=== PATIENT | female | born 1975 | race Caucasian/White ===

== ENCOUNTER 2022-06-20 11:05 | Day surgery (SDC) | payer MEDICARE, OTHER ==
[2022-06-18 14:34] VITALS: BMI 38.2
--- NOTE | 2022-06-19 13:47 | P.HPIHPCON ---
History of Present Illness H&P Date: 06/19/22 Chief Complaint: Left ureteral stone This is a 47-year-old female, with history of a 1 cm left-sided ureteral stone, status post stent insertion for septic stone. Discussed with her the option of definitive stone management. Discussed with her the option of a left-sided ur eteroscopy with holmium laser. Discussed with her the risk which includes but not limited to bleeding, infection, injury to the ureter. Discussed also with her risk from anesthesia. She understood all the risk and agreed to proceed left-sided ureteroscopy, holmium laser lithotripsy, stone basketing and stent removal Consent for Procedure: I have explained the operation/procedure to the patient, including the risks, benefits, side effects, alternative therapies (including not receiving the proposed treatment or service), the likelihood of the patient achieving his/her goals, and potential recuperation problems for the procedure/sedation/analgesia, as well as any blood products, if indicated. I also explained to the patient the risks, benefits and side effects of the alternatives, as well as the risks related to not receiving the proposed procedure, care, treatment, or services. Past Medical History Past Medical History: Atrial Fibrillation, Diabetes Mellitus, GERD/Reflux, Seizure Disorder Additional Past Medical History / Comment(s): admitted to [facility] May 2022 for sepsis/uti,acute renal failure. 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 uses a beata lift,goff catheter,colostomy,chronic inflammatory demyelinating polyneuritis,anemia,date of last seizure unk History of Any Multi-Drug Resistant Organisms: None Reported Past Surgical History: Cholecystectomy Additional Past Surgical History / Comment(s): colostomy,liver surgery Past Anesthesia/Blood Transfusion Reactions: No Reported Reaction Smoking Status: Unknown if ever smoked - Past Family History Father History Unknown: Yes Medications and Allergies Home Medications Medication Instructions Recorded Confirmed Type Acetaminophen Tab [Tylenol] 650 mg PO Q6H PRN 06/18/22 06/18/22 History Apixaban [Eliquis] 5 mg PO BID 06/18/22 06/18/22 History Baclofen 5 mg PO BID 06/18/22 06/18/22 History Cholecalciferol [Vitamin D3 (25 50 mcg PO DAILY 06/18/22 06/18/22 History Mcg = 1000 Iu)] DULoxetine HCL 20 mg PO QAM 06/18/22 06/18/22 History Flecainide Acetate 50 mg PO BID 06/18/22 06/18/22 History Gabapentin [Neurontin] 300 mg PO BID 06/18/22 06/18/22 History HYDROcodone/APAP 5-325MG [Isleta 1 tab PO Q6HR PRN 06/18/22 06/18/22 History 5-325] INSULIN LISPRO (HumaLOG) [humaLOG] 0 units SQ TID-W/MEALS PRN 06/18/22 06/18/22 History Insulin Glargine,Hum.rec.anlog 12 units SQ HS 06/18/22 06/18/22 History [Lantus Solostar Pen] Insulin Glargine,Hum.rec.anlog 15 units SQ DAILY 06/18/22 06/18/22 History [Lantus Solostar Pen] Mag Hydrox/Al Hydrox/Simeth 30 ml PO Q6H PRN 06/18/22 06/18/22 History [Maalox] Melatonin [Melatonin ER] 10 mg PO HS 06/18/22 06/18/22 History Metoprolol Succinate (ER) [Toprol 25 mg PO QAM 06/18/22 06/18/22 History Xl] Miconazole Nitrate [Monistat 3 200 mg VAGINAL HS 06/18/22 06/18/22 History Vaginal] Midodrine HCl [ProAmatine] 10 mg PO TID 06/18/22 06/18/22 History Multivitamins, Thera [Multivitamin 1 tab PO DAILY 06/18/22 06/18/22 History (formulary)] Oxybutynin Chloride [Oxybutynin 15 mg PO DAILY 06/18/22 06/18/22 History Chloride ER] Primidone [Mysoline] 50 mg PO HS 06/18/22 06/18/22 History Z Guard Topical 1 applicate TOPICAL BID 06/18/22 06/18/22 History levETIRAcetam [Keppra] 750 mg PO Q12HR 06/18/22 06/18/22 History Allergies Allergy/AdvReac Type Severity Reaction Status Date / Time shellfish derived [Shellfish] Allergy Unknown Verified 06/18/22 13:22 Surgical - Exam - General no distress, no pain - Eyes normal ocular movement - Respiratory normal expansion, normal respiratory effort Assessment and Plan Assessment: OR for left-sided ureteroscopy, holmium laser lithotripsy, stone basketing and stent removal
[~2022-06-20 11:05] MED LIST: DEXAMETHASONE SOD PHOSPHATE 4 MG/ML 1 ML VIAL IV ONE; GENTAMICIN 120 MG in SODIUM CHLORIDE 0.9% 100 ML IVPB PRN; HYDROmorphone 0.5 MG/0.5 ML SYRINGE IVP PRN; LACTATED RINGERS 1,000 ML IV SCH; MIDAZOLAM 2 MG/2 ML VIAL IV PRN; ONDANSETRON 4 MG/2 ML VIAL IVP ONE; SCOPOLAMINE 1 MG/72 HR PATCH TRANSDERM ONE; ceFAZolin 3 GM in SODIUM CHLORIDE 0.9% 100 ML IVPB PRN
[2022-06-20 12:20] LABS: Glucose,Whole Blood 117 mg/dL (70-110)
--- NOTE | 2022-06-20 13:17 | XR ---
KUB HISTORY: Left renal stone Frontal KUB and 2 images Double-J ureteral stent is present on the left. There is an ostomy in the left lower quadrant. Surgic al clips are present in the right upper quadrant. Probable vascular calcifications are present within the pelvis. Some retained fecal debris is present within the colon. Bone mineralization is slightly reduced. Degenerative disc changes are present visualized spine. Question a crescentic calcification at the level of the lower pole the left kidney, overlying bowel gas obscures detail. Question postop changes in the left upper quadrant. Patient is rotated. IMPRESSION: Postprocedural changes, possible nephrolithiasis.
[2022-06-20] MEDS ORDERED: MIDAZOLAM 2 MG/2 ML VIAL ONE (13:49)
[2022-06-20] MEDS ORDERED: PROPOFOL 10 MG/ML 20 ML VIAL IV ONE (13:49)
[2022-06-20] MEDS ORDERED: fentaNYL (PF) 50 MCG/ML 2 ML AMP ONE (13:49)
[2022-06-20] MEDS ORDERED: ePHEDrine 50 MG/ML 1 ML VIAL ONE (13:49)
[2022-06-20] MEDS ORDERED: GLYCOPYRROLATE 0.2 MG/ML 2 ML VIAL ONE (13:49)
[2022-06-20 14:57] VITALS: TEMP 97
--- NOTE | 2022-06-20 15:02 | FL ---
Intraoperative/procedural fluoroscopic services were provided. Total fluoroscopy time is 3.8 seconds with a total of 1 submitted images to PACS. Please see the operative/procedural note for further deta ils.
--- NOTE | 2022-06-20 15:07 | P.OP ---
Date of Procedure: 06/20/22 Preoperative Diagnosis: Left ureteral stone Postoperative Diagnosis: Same Procedure(s) Performed: Cystoscopy left ureteroscopy, and stent removal Implants: None Anesthesia: EFRAINA Surgeon: Michael Dickens Estimated Blood Loss (ml): 5 Pathology: none sent Condition: stable Disposition: PACU Indications for Procedure: This is a 47-year-old female, with history of a 1 cm left-sided ureteral stone, status post stent insertion for septic stone. Discussed with her the option of definitive stone management. Discussed with her the option of a left-sided ureteroscopy with holmium laser. Discussed with her the risk which includes but not limited to bleeding, infection, injury to the ureter. Discussed also with her risk from anesthesia. She understood all the risk and agreed to proceed left-sided ureteroscopy, holmium laser lithotripsy, stone basketing and stent removal Operative Findings: No stone was identified, the ureter and the collecting system was dilated, there was debris within the collecting system Description of Procedure: Patient brought to the operating room, general anesthesia was induced. She was prepped and draped in sterile fashion and placed in dorsal lithotomy position. Cystoscopy fitted with a 21-Mongolian sheath was inserted per urethra, cystoscopy was performed which showed no abnormality within the bladder, of note the urethra was patulous. Attention was then carried to the ureteral stent which was grasped and removed to the meatus. Next a sensor wire was advanced through the stent and the stent was removed with the wire in place. Next a semirigid ureteroscope was inserted through the urethra and advanced up the left ureteral orifice, of note the ureter was significantly dilated, and I was able to advance the scope all the way to the proximal ureter which showed no evidence of stone, pullback ureteroscopy was performed showed no injury to the ureter, or evidence of any stones. Next under fluoroscopy 1214 Mongolian access sheath was passed over the wire, access sheath passed with ease given the significantly dilated ureter. Next a flexible ureteroscope was inserted through the access sheath, renoscopy was performed showed a dilating collecting system and there was significant amount of debris within the collecting system which limited visualization, the debris was irrigated out, and a complete renoscopy was performed no evidence of stone within the kidney. Pullback ureteroscopy was performed which showed no evidence of any ureteral stone or injury to the ureter, again the ureter was significantly dilated. The bladder was emptied and the case. A 18-Mongolian Calderon catheter was placed with return of clear urine. Patient tolerated procedure well was taken to recovery in stable condition
[2022-06-20 15:46] VITALS: RESP 18
[2022-06-20 16:01] VITALS: BP 121/71; PULSE 76
== END 2022-06-20 16:40 | disposition home or self-care (01) ==
LOC: OR 11:05 → EEVIPCON 13:00 → OR 16:40
PROVIDERS: ATTEND Urology
DX: N20.1 Calculus of ureter (principal); I48.91 Unspecified atrial fibrillation; E11.9 Type 2 diabetes mellitus without complications; I10 Essential (primary) hypertension; K21.9 Gastro-esophageal reflux disease without esophagitis; G40.909 Epilepsy, unspecified, not intractable, without status epilepticus; G61.0 Guillain-Barre syndrome; Z86.19 Personal history of other infectious and parasitic diseases; Z87.440 Personal history of urinary (tract) infections; G82.50 Quadriplegia, unspecified; Z90.49 Acquired absence of other specified parts of digestive tract; Z98.890 Other specified postprocedural states; Z93.3 Colostomy status; D64.9 Anemia, unspecified; Z79.01 Long term (current) use of anticoagulants; Z79.4 Long term (current) use of insulin; Z79.899 Other long term (current) drug therapy; Z91.013 Allergy to seafood
CPT/HCPCS: 81025; 74018; 52310; C1758; C1894; C1769; J2250; J0690; J3010; J1580; J2704

== ENCOUNTER → 2022-10-24 | Outpatient (CLI) | payer MEDICARE, OTHER ==
--- NOTE | 2022-10-24 15:49 | MR ---
EXAMINATION TYPE: MR angio head wo con DATE OF EXAM: 10/24/2022 COMPARISON: NONE HISTORY: Facial numbness and tingling, seizure. TECHNIQUE: Time of flight images focusing on the [place] of [place] were performed without contrast.. 2-D and 3-D postprocessing imaging is performed on MRI scanner. FINDINGS: There is dominant left vertebral artery. Vertebral arteries are patent to basilar junction. There are patent bilateral posterior communicating arteries. No Significant focal stenosis or aneury sm in the posterior circulation. There is patent anterior communicating artery. There is no significa nt focal stenosis or aneurysm in the anterior circulation. IMPRESSION: No aneurysm at the level of the [place] of [place].
--- NOTE | 2022-10-25 14:07 | MR ---
EXAMINATION TYPE: MR brain wo con DATE OF EXAM: 10/24/2022 4:13 PM COMPARISON: None CLINICAL INDICATION:Female, 47 years old with history of R56.9 R20.0 R20.2; TECHNIQUE: Multi planar, multi sequence imaging was performed through the brain including: T1, T2, In version recovery, Diffusion weighted imaging, and gradient echo imaging. No gadolinium was given. FINDINGS: High T2 signal within the shanthi with a cross orientation suggestive of "hot cross bun" sign best appre ciated on series 401 image 12. The ventricular system, and cisterns appear unremarkable. Scattered foci of high T2 signal intensity are seen within the periventricular white matter. Midline structures show no abnormality. Diffusion- weighted imaging shows no evidence of restricted diffusion. The susceptibility weighted images do not reveal any evidence for micro-hemorrhage. The bone marrow signal is within normal limits. Paranasal sinuses and mastoid air cells: High T2 signal mucosal thickening with complete filling of t he right exercise. Visualized orbits: Orbital contents are intact. IMPRESSION: 1. 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 This can be seen in variety of neurodegenerative diseases such as multip le system atrophy (MSA). 2. Nonspecific white matter changes, likely secondary to small vessel ischemic disease.
== END | disposition home or self-care (01) ==
LOC: RADMRIMAIN 14:28
PROVIDERS: ATTEND Psychiatry & Neurology Neurology
DX: R90.82 White matter disease, unspecified (principal); G31.9 Degenerative disease of nervous system, unspecified; R56.9 Unspecified convulsions; R20.0 Anesthesia of skin; R20.2 Paresthesia of skin
CPT/HCPCS: 70544; 70551

== ENCOUNTER → 2023-11-24 | Day surgery (SDC) | payer MEDICARE, OTHER ==
[~2023-11-24] MED LIST changes: +HYDROcodone/APAP 10-325MG 1 EACH TAB ONE; +HYDROcodone/APAP 10-325MG 1 EACH TAB PO ONE; +IOPAMIDOL-370 50ML BTL MISCELLANE ONE; +LACTATED RINGERS 1,000 ML IV ONE; +LIDOCAINE 1% INJ 10MG/ML (20 ML MDV) ONE; -MIDAZOLAM 2 MG/2 ML VIAL IV PRN; +MIDAZOLAM 2 MG/2 ML VIAL ONE; +PHENYLEPHRINE 10 MG/ML VIAL ONE; +PROPOFOL 10 MG/ML 20 ML VIAL IV ONE; -SCOPOLAMINE 1 MG/72 HR PATCH TRANSDERM ONE; +SUCCINYLCHOLINE CHLORIDE 200 MG/10 ML VIAL IV ONE; +fentaNYL (PF) 50 MCG/ML 2 ML AMP ONE
--- NOTE | 2023-11-24 08:51 | P.HPIHPCON ---
History of Present Illness H&P Date: 11/24/23 Chief Complaint: Bilateral renal stones This is a 48-year-old female with history of bilateral renal stones, she is having symptomatic bilateral flank pain and recurrent UTIs secondary to her stone burden. Discussed the option of bilateral ureteroscopy with holmium laser.The risk which includes but not limited to bleeding, infection, injury to the ureter. Risk of anesthesia was also discussed. She understood all the risk and agreed to proceed. Urine culture did grow ESBL, but she is currently on ertapenem Consent for Procedure: I have explained the operation/procedure to the patient, including the risks, benefits, side effects, alternative therapies (including not receiving the proposed treatment or service), the likelihood of the patient achieving his/her goals, and potential recuperation problems for the procedure/sedation/analgesia, as well as any blood products, if indicated. I also explained to the patient the risks, benefits and side effects of the alternatives, as well as the risks related to not receiving the proposed procedure, care, treatment, or services. Past Medical History Past Medical History: Atrial Fibrillation, Diabetes Mellitus, GERD/Reflux, Seizure Disorder Additional Past Medical History / Comment(s): admitted to [facility] May 2022 for sepsis/uti,acute renal failure. 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,goff catheter,colostomy,chronic inflammatory demyelinating polyneuritis,anemia,date of last seizure unk History of Any Multi-Drug Resistant Organisms: ESBL Date of last positivie culture/infection: 10/07/22 ESBL E.coli MDRO Source:: Urine Past Surgical History: Bowel Resection, Cholecystectomy Additional Past Surgical History / Comment(s): lithotripsy,tawanda n y, tracheastomy with reversal and colostomy Past Anesthesia/Blood Transfusion Reactions: No Reported Reaction Smoking Status: Current every day smoker, Vaper - Past Family History Father History Unknown: Yes Additional Family Medical History / Comment(s): heart disease from scarlet fever Mother Family Medical History: Cancer Additional Family Medical History / Comment(s): lung Medications and Allergies Home Medications Medication Instructions Recorded Confirmed Type Acetaminophen Tab [Tylenol] 650 mg PO Q6H PRN 06/18/22 11/19/23 History Apixaban [Eliquis] 5 mg PO BID 06/18/22 11/19/23 History Baclofen 5 mg PO BID 06/18/22 11/19/23 History Flecainide Acetate 50 mg PO BID 06/18/22 11/19/23 History Gabapentin [Neurontin] 300 mg PO BID 06/18/22 11/19/23 History Insulin Glargine,Hum.rec.anlog 12 units SQ BID 06/18/22 11/19/23 History [Lantus Solostar Pen] Mag Hydrox/Al Hydrox/Simeth 30 ml PO Q6H PRN 06/18/22 11/19/23 History [Maalox] Melatonin [Melatonin ER] 10 mg PO HS 06/18/22 11/19/23 History Metoprolol Succinate (ER) [Toprol 25 mg PO QAM 06/18/22 11/19/23 History Xl] Midodrine HCl [ProAmatine] 10 mg PO DAILY PRN 06/18/22 11/19/23 History Multivitamins, Thera [Multivitamin 1 tab PO DAILY 06/18/22 11/19/23 History (formulary)] Oxybutynin Chloride [Oxybutynin 15 mg PO DAILY 06/18/22 11/19/23 History Chloride ER] Primidone [Mysoline] 50 mg PO HS 06/18/22 11/19/23 History levETIRAcetam [Keppra] 750 mg PO Q12HR 06/18/22 11/19/23 History Cholecalciferol [Vitamin D3 (25 50 mcg PO DAILY 11/19/23 11/19/23 History Mcg = 1000 Iu)] Docusate Sodium [Dok] 100 mg PO DAILY PRN 11/19/23 11/19/23 History Famotidine [Pepcid] 20 mg PO DAILY PRN 11/19/23 11/19/23 History HYDROcodone/APAP 10-325MG [Holden 1 tab PO Q4HR PRN 11/19/23 11/19/23 History 10-325] Insulin Lispro [humaLOG Kwikpen] 0 unit SQ TID-W/MEALS PRN 11/19/23 11/19/23 History Loratadine [Claritin] 10 mg PO DAILY PRN 11/19/23 11/19/23 History Magnesium Oxide [Mag-Ox] 400 mg PO BID 11/19/23 11/19/23 History Semaglutide [Ozempic] 1 mg SQ TH 11/19/23 11/19/23 History Suvorexant [Belsomra] 15 mg PO HS 11/19/23 11/19/23 History Venlafaxine HCl ER [Effexor Xr] 37.5 mg PO QAM 11/19/23 11/19/23 History Allergies Allergy/AdvReac Type Severity Reaction Status Date / Time shellfish derived [Shellfish] Allergy Unknown Verified 06/20/22 11:38 Surgical - Exam - General no distress, no pain - Eyes normal ocular movement, no pale - ENT normal nares, normal mucosa - Respiratory normal expansion, normal respiratory effort - Abdomen Abdomen: soft, non tender Assessment and Plan Assessment: OR for bilateral ureteroscopy, holmium laser lithotripsy, stone basketing and s tent insertion
--- NOTE | 2023-11-24 09:04 | XR ---
EXAMINATION TYPE: XR KUB DATE OF EXAM: 11/24/2023 Comparison: 06/20/2022 Clinical History: 48-year-old female preoperative assessment, blood in urine, kidney stones Findings: Possible ostomy or external artifact left side of the pelvis. Clinically correlate large patient body habitus limits evaluation. Cholecystectomy clips. Mild overall stool burden. No definite suspicious calcifications radiographically apparent. Some surgical material left paramedi an upper abdomen. Impression: Limited radiographic assessment due to large patient body habitus. The previous left ureteral stent h as been removed. Cholecystectomy clips and surgical material left paramedian upper abdomen. A suspici ous calcification is not clearly identified radiographically.
[2023-11-24 09:28] LABS: Glucose,Whole Blood 127 mg/dL (70-110)
--- NOTE | 2023-11-24 13:18 | P.OP ---
Date of Procedure: 11/24/23 Preoperative Diagnosis: Bilateral renal stones Postoperative Diagnosis: same Procedure(s) Performed: Cystoscopy, bilateral reterograde pyelogram, ureteroscopy, holmium laser lithotripsy, stone basketing and stent insertions Implants: 6-Finnish by 26 cm stent in the bilateral ureters left on a string and taped to the patient catheter Anesthesia: DEON Surgeon: Michael Dickens Estimated Blood Loss (ml): 10 Pathology: other (Bilateral renal stones) Condition: stable Disposition: PACU Indications for Procedure: This is a 48-year-old female with history of bilateral renal stones, she is having symptomatic bilateral flank pain and recurrent UTIs secondary to her stone burden. Discussed the option of bilateral ureteroscopy with holmium laser.The risk which includes but not limited to bleeding, infection, injury to the ureter. Risk of anesthesia was also discussed. She understood all the risk and agreed to proceed. Urine culture did grow ESBL, but she is currently on ertapene Operative Findings: Multiple small stones throughout the bilateral kidney Description of Procedure: Patient brought to the operating room, general anesthesia was induced. She was prepped and draped in sterile fashion and placed in dorsal lithotomy position. Cystoscopy fitted 21-Finnish sheath was inserted per urethra, cystoscopy was performed which showed no abnormality within the bladder. Attention was then ca rried to the right ureteral orifice which was intubated with an open-ended catheter, retrograde pyelogram was performed on the right side which showed no filling defect or hydronephrosis. Attention was then carried to the left side with and retrograde pyelogram was also performed on that side which showed no evidence of hydronephrosis or any filling defect, at this point a wire was advanced through the catheter, the catheter was removed with the wire in place. Next under fluoroscopy 1113 Finnish access sheath was passed over the wire into the proximal ureter. Next a flexible ureteroscope was inserted through the access sheath, renoscopy was performed which showed multiple small stones throughout the kidney, stones were fragmented using the holmium laser, any sizable fragments were removed using the stone basket. Repeat renoscopy showed no sizable fragments or injury to the kidney. Pullback ureteroscopy was performed which showed no injury to the ureter or any ureteral stones, as ureteroscope was withdrawn a sensor wire was advanced through. Next a ureteral stent was passed over the wire, the proximal curl was visualized on fluoroscopy and the distal curl was visualized using the cystoscope. The stent was left on a string. At this time attention was carried to the right side which was intubated with a sensor wire. Next under fluoroscopy 1113 Finnish access sheath was passed over the wire and into the proximal ureter. Next the flexible ureteroscope was inserted through the access sheath, renoscopy was performed showed multiple small stones throughout the kidney. Using the holmium laser the stone was fragmented, sizable stone fragment were removed using the stone basket, repeat renoscopy showed no sizable stones or injury to the kidney. Pullback ureteroscopy was performed which showed no injury to the kidney or any ureteral stones, as ureteroscope was withdrawn and a sensor wire was advanced through. Next a ureteral stent was passed over the wire, the proximal curl was visualized on fluoroscopy and the distal curl was visualized using the cystoscope. The stents were left on a string. At this time a 20-Finnish Calderon catheter was placed with return of clear urine. Both strings were taped to the catheter. Patient tolerated procedure well was taken to recovery in stable condition
[2023-11-24 13:53] VITALS: RESP 16; TEMP 99
[2023-11-24 14:17] VITALS: BP 105/73; PULSE 82
[2023-11-24 14:17] LABS: Glucose,Whole Blood 161 mg/dL (70-110)
--- NOTE | 2023-11-24 15:51 | FL ---
EXAMINATION TYPE: FL urography retrograde DATE OF EXAM: 11/24/2023 FLUOROSCOPY Fluoroscopy time of 76 seconds was used during urologic intervention for bilateral kidney stones. 7 image/s document/s the procedure. 1.06 Gycm2 DAP
== END ==
LOC: OR 08:13
PROVIDERS: ATTEND Urology
DX: N20.0 Calculus of kidney (principal); F17.210 Nicotine dependence, cigarettes, uncomplicated; E66.01 Morbid (severe) obesity due to excess calories; I48.91 Unspecified atrial fibrillation; E11.40 Type 2 diabetes mellitus with diabetic neuropathy, unspecified; K21.9 Gastro-esophageal reflux disease without esophagitis; A41.9 Sepsis, unspecified organism; Z90.49 Acquired absence of other specified parts of digestive tract; Z98.890 Other specified postprocedural states; Z87.442 Personal history of urinary calculi; Z82.49 Family history of ischemic heart disease and other diseases of the circulatory system; Z80.1 Family history of malignant neoplasm of trachea, bronchus and lung; Z79.4 Long term (current) use of insulin; Z79.01 Long term (current) use of anticoagulants; Z79.899 Other long term (current) drug therapy; Z68.37 Body mass index [BMI] 37.0-37.9, adult; Z91.013 Allergy to seafood
CPT/HCPCS: 52356; 81025; 82365; 74420; 74018; C2625; C1758; C1769; J2250; J0330; J1100; J0690; J2405; J2001; J3010; J1580; J2704; Q9967; J2371

== ENCOUNTER 2024-03-13 09:15 | Inpatient (IN) | payer MEDICARE, OTHER ==
[2024-03-13] MEDS: SODIUM CHLORIDE 0.9% 1,000 ML IV STA ×2 (09:53→13:02)
--- NOTE | 2024-03-13 10:06 | ED ---
Abdominal Pain HPI - General Chief Complaint: Abdominal Pain Stated Complaint: ABD pain Time Seen by Provider: 03/13/24 09:18 Source: patient, EMS, RN notes reviewed Mode of arrival: EMS Limitations: no limitations - History of Present Illness Initial Comments: This is a 48-year-old female who presents to the emergency department for right lower quadrant abdominal pain. Symptoms started yesterday. Pain does not radiate into the back. She also has associated nausea and vomiting. Reports temperatures of approximately 99 F. She does take [place] for pain, which has been somewhat helpful. Patient has a colostomy bag, but denies any changes in bowel habits. She does currently have a PICC line, that has been in place for about a week. She is receiving IV antibiotics for a urinary tract infection. MD Complaint: abdominal pain - Related Data Home Medications Medication Instructions Recorded Confirmed Acetaminophen Tab [Tylenol] 650 mg PO Q6H PRN 06/18/22 03/13/24 Apixaban [Eliquis] 5 mg PO BID 06/18/22 03/13/24 Baclofen 5 mg PO BID 06/18/22 03/13/24 Flecainide Acetate 50 mg PO BID 06/18/22 03/13/24 Gabapentin [Neurontin] 300 mg PO BID 06/18/22 03/13/24 Insulin Glargine,Hum.rec.anlog 12 units SQ BID 06/18/22 03/13/24 [Lantus Solostar Pen] Mag Hydrox/Al Hydrox/Simeth 30 ml PO Q6H PRN 06/18/22 03/13/24 [Maalox] Melatonin [Melatonin ER] 10 mg PO HS 06/18/22 03/13/24 Metoprolol Succinate (ER) [Toprol 25 mg PO DAILY 06/18/22 03/13/24 Xl] Midodrine HCl [ProAmatine] 10 mg PO DAILY PRN 06/18/22 03/13/24 Multivitamins, Thera [Multivitamin 1 tab PO DAILY 06/18/22 03/13/24 (formulary)] Oxybutynin Chloride [Oxybutynin 15 mg PO DAILY 06/18/22 03/13/24 Chloride ER] Primidone [Mysoline] 50 mg PO HS 06/18/22 03/13/24 Cholecalciferol [Vitamin D3 (25 50 mcg PO DAILY 11/19/23 03/13/24 Mcg = 1000 Iu)] Docusate Sodium [Dok] 100 mg PO DAILY PRN 11/19/23 03/13/24 Famotidine [Pepcid] 20 mg PO DAILY 11/19/23 03/13/24 HYDROcodone/APAP 10-325MG [[place] 1 tab PO Q4HR PRN 11/19/23 03/13/24 10-325] Insulin Lispro [humaLOG Kwikpen] See Protocol SQ AC-TID 11/19/23 03/13/24 Loratadine [Claritin] 10 mg PO DAILY PRN 11/19/23 03/13/24 Magnesium Oxide [Mag-Ox] 400 mg PO BID 11/19/23 03/13/24 Semaglutide [Ozempic] 1 mg SQ SA 11/19/23 03/13/24 Suvorexant [Belsomra] 15 mg PO HS 11/19/23 03/13/24 Venlafaxine HCl ER [Effexor Xr] 37.5 mg PO DAILY 11/19/23 03/13/24 0.9 % Sodium Chloride [Sodium 10 ml IV DAILY 03/13/24 03/13/24 Chloride Flush] Ertapenem [INVanz] 1 gm IVPB Q24H 03/13/24 03/13/24 Ondansetron [Zofran] 4 mg PO TID PRN 03/13/24 03/13/24 levETIRAcetam [Keppra] 750 mg PO Q12HR 03/13/24 03/13/24 Allergies Allergy/AdvReac Type Severity Reaction Status Date / Time shellfish derived [Shellfish] Allergy Unknown Verified 03/13/24 14:13 strawberry Allergy Unknown Verified 03/13/24 14:13 Review of Systems ROS Statement: Those systems with pertinent positive or pertinent negative responses have been documented in the HPI. ROS Other: All systems not noted in ROS Statement are negative. Past Medical History Past Medical History: Atrial Fibrillation, Diabetes Mellitus, GERD/Reflux, Seizure Disorder Additional Past Medical History / Comment(s): admitted to [facility] May [facility]22 for sepsis/uti,acute renal failure. 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 uses a beata lift,goff catheter,colostomy,chronic inflammatory demyelinating polyneuritis,anemia,date of last seizure unk History of Any Multi-Drug Resistant Organisms: ESBL Date of last positivie culture/infection: 11/17/23 ESBL E.coli MDRO Source:: Urine Additional Past Surgical History / Comment(s): Urethral stents x 2 Smoking Status: Never smoker Past Alcohol Use History: None Reported Past Drug Use History: None Reported - Past Family History Father History Unknown: Yes General Exam Limitations: no limitations General appearance: alert, in no apparent distress Head exam: Present: atraumatic, normocephalic, normal inspection Respiratory exam: Present: normal lung sounds bilaterally. Absent: respiratory distress, wheezes, rales, rhonchi, stridor Cardiovascular Exam: Present: regular rate, normal rhythm, normal heart sounds. Absent: systolic murmur, diastolic murmur, rubs, gallop, clicks GI/Abdominal exam: Present: soft, tenderness (RLQ). Absent: distended Neurological exam: Present: alert, oriented X3, CN II-XII intact Psychiatric exam: Present: normal affect, normal mood Skin exam: Present: warm, dry, intact, normal color. Absent: rash Course Vital Signs 03/13/24 03/13/24 03/13/24 09:18 11:33 13:08 Temperature 98.6 F Pulse Rate 76 81 83 Respiratory 18 18 16 Rate Blood Pressure 94/68 92/56 94/63 O2 Sat by Pulse 93 L 95 94 L Oximetry 03/13/24 16:00 Temperature Pulse Rate 84 Respiratory 20 Rate Blood Pressure 99/42 O2 Sat by Pulse 94 L Oximetry Medical Decision Making - Medical Decision Making This is a 48-year-old female who presents to the emergency department for abdominal pain. Was pt. sent in by a medical professional or institution? @ -No Did you speak to anyone other than the patient for history? @ -No Did you review nursing and triage notes? @ -Yes, and I agree, it is accurate with regards to the patient's symptoms. Were old charts reviewed? @ -No Differential Diagnosis? @ -Differential Abdominal Pain Women: Appendicitis, Cholecystitis, diverticulosis, ischemic bowel, pancreatitis, hepatitis, UTI, gastroenteritis, AAA, incarcerated hernia, bowel obstruction, constipation, inflammatory bowel, hepatitis, peptic ulcer disease, splenic infarction, perforated viscus, vulvitis, ovarian torsion, PID, kidney stone, placenta abruption, this is not meant to be an all-inclusive list EKG interpreted by me (3pts min.)? @ -EKG interpreted by me demonstrating the following: Sinus rhythm. Ventricular rate 78 bpm, WA interval 189 ms, QRS duration 97 ms, QTc 432 ms. X-rays interpreted by me (1pt min.)? @ -Not obtained CT interpreted by me (1pt min.)? @ -CT scan of the abdomen and pelvis obtained. My interpretation identifies a dilated tubular structure in the right lower quadrant. U/S interpreted by me (1pt. min.)? @ -Not obtained What testing was considered but not performed? (CT, X-rays, U/S, labs)? Why? @ -None What meds were considered but not given? Why? @ -None Did you discuss the management of the patient with other professionals? @ -Yes, Dr. Garcia, who accepts the patient for admission. Did you reconcile home meds? @ -Yes - Eliquis on hold for anticipated surgical intervention Was smoking cessation discussed for >3mins.? @ -No Was critical care preformed (if so, how long)? @ -No Were there social determinants of health that impacted care today? How? (Homelessness, low income, unemployed, alcoholism, drug addiction, transportation, low edu. Level, literacy, decrease access to med. care, snf, rehab)? @ -No Was there de-escalation of care discussed even if they declined? (Discuss DNR or withdrawal of care, Hospice)? @ -No What co-morbidities impacted this encounter? (DM, HTN, Smoking, COPD, CAD, Cancer, CVA, Hep., AIDS, mental health diagnosis, sleep apnea, morbid obesity)? @ -A-fib, DM, paraplegia Was patient admitted / discharged? @ -Admitted. Lab work demonstrates leukocytosis and was otherwise fairly unremarkable. Urinalysis consistent with persistent infection, and patient is on ertapenem for ESBL caused UTI via PICC line. CT scan demonstrates an inflammatory process in the right abdomen, which bulges and extends laterally into the flank and there is suggestion of a dilated tubular structure, concerning for acute appendicitis. There are also multiple incidental findings. Blood cultures were obtained and the patient was started on Zosyn for management of appendicitis. Maintenance fluids initiated as well. Patient admitted to general surgery for acute appendicitis. Medicine consulted for medical management. Eliquis on hold for anticipated surgical intervention. Patient on clear liquids today and will be NPO after midnight. Undiagnosed new problem with uncertain prognosis? @ -None Drug Therapy requiring intensive monitoring for toxicity (Heparin, Nitro, Insulin, Cardizem)? @ -None Were any procedures done? @ -None Diagnosis/symptom? @ -Acute appendicitis Acute, or Chronic, or Acute on Chronic? @ -Acute Uncomplicated (without systemic symptoms) or Complicated (systemic symptoms)? @ -Complicated Side effects of treatment? @ -None Exacerbation, Progression, or Severe Exacerbation] @ -Not applicable Poses a threat to life or bodily function? @ -Yes This case was discussed in detail with the attending ED physician, Dr. Baca. Presentation, findings, and treatment plan discussed in detail as well. - Lab Data Result diagrams: 03/13/24 10:02 03/13/24 10:02 Lab Results 03/13/24 03/13/24 03/13/24 Range/Units 10:02 10:02 10:02 WBC 13.6 H (3.8-10.6) k/uL RBC 4.19 (3.80-5.40) m/uL Hgb 12.7 (11.4-16.0) gm/dL Hct 39.4 (34.0-46.0) % MCV 94.1 (80.0-100.0) fL MCH 30.2 (25.0-35.0) pg MCHC 32.1 (31.0-37.0) g/dL RDW 13.2 (11.5-15.5) % Plt Count 250 (150-450) k/uL MPV 8.5 Neutrophils % 82 % Lymphocytes % 11 % Monocytes % 5 % Eosinophils % 1 % Basophils % 0 % Neutrophils # 11.1 H (1.3-7.7) k/uL Lymphocytes # 1.4 (1.0-4.8) k/uL Monocytes # 0.7 (0-1.0) k/uL Eosinophils # 0.2 (0-0.7) k/uL Basophils # 0.0 (0-0.2) k/uL Sodium 132 L (137-145) mmol/L Potassium 4.2 (3.5-5.1) mmol/L Chloride 97 L (98-107) mmol/L Carbon Dioxide 29 (22-30) mmol/L Anion Gap 6 mmol/L BUN 15 (7-17) mg/dL Creatinine 0.91 (0.52-1.04) mg/dL Est GFR (CKD-EPI)AfAm 86 (>60 ml/min/1.73 sqM) Est GFR (CKD-EPI)NonAf 74 (>60 ml/min/1.73 sqM) Glucose 130 H (74-99) mg/dL Plasma Lactic Acid Laurent (0.7-2.0) mmol/L Calcium 7.9 L (8.4-10.2) mg/dL Total Bilirubin 0.6 (0.2-1.3) mg/dL AST 18 (14-36) U/L ALT 9 (4-34) U/L Alkaline Phosphatase 99 (38-126) U/L Total Protein 6.5 (6.3-8.2) g/dL Albumin 3.1 L (3.5-5.0) g/dL Amylase 45 (30-110) U/L Lipase 75 (23-300) U/L Urine Color Colorless Urine Appearance Clear (Clear) Urine pH 7.0 (5.0-8.0) Ur Specific [place] 1.006 (1.001-1.035) Urine Protein Negative (Negative) Urine Glucose (UA) Negative (Negative) Urine Ketones Negative (Negative) Urine Blood Moderate H (Negative) Urine Nitrite Positive H (Negative) Urine Bilirubin Negative (Negative) Urine Urobilinogen <2.0 (<2.0) mg/dL Ur Leukocyte Esterase Moderate H (Negative) Urine RBC 2 (0-5) /hpf Urine WBC 8 H (0-5) /hpf Ur Squamous Epith Cells 9 H (0-4) /hpf Amorphous Sediment Occasional H (None) /hpf Urine Bacteria Rare H (None) /hpf Hyaline Casts 1 (0-2) /lpf Urine Mucus Rare H (None) /hpf 03/13/ Range/Units 10:02 WBC (3.8-10.6) k/uL RBC (3.80-5.40) m/uL Hgb (11.4-16.0) gm/dL Hct (34.0-46.0) % MCV (80.0-100.0) fL MCH (25.0-35.0) pg MCHC (31.0-37.0) g/dL RDW (11.5-15.5) % Plt Count (150-450) k/uL MPV Neutrophils % % Lymphocytes % % Monocytes % % Eosinophils % % Basophils % % Neutrophils # (1.3-7.7) k/uL Lymphocytes # (1.0-4.8) k/uL Monocytes # (0-1.0) k/uL Eosinophils # (0-0.7) k/uL Basophils # (0-0.2) k/uL Sodium (137-145) mmol/L Potassium (3.5-5.1) mmol/L Chloride (98-107) mmol/L Carbon Dioxide (22-30) mmol/L Anion Gap mmol/L BUN (7-17) mg/dL Creatinine (0.52-1.04) mg/dL Est GFR (CKD-EPI)AfAm (>60 ml/min/1.73 sqM) Est GFR (CKD-EPI)NonAf (>60 ml/min/1.73 sqM) Glucose (74-99) mg/dL Plasma Lactic Acid Laurent 0.8 (0.7-2.0) mmol/L Calcium (8.4-10.2) mg/dL Total Bilirubin (0.2-1.3) mg/dL AST (14-36) U/L ALT (4-34) U/L Alkaline Phosphatase (38-126) U/L Total Protein (6.3-8.2) g/dL Albumin (3.5-5.0) g/dL Amylase (30-110) U/L Lipase (23-300) U/L Urine Color Urine Appearance (Clear) Urine pH (5.0-8.0) Ur Specific [place] (1.001-1.035) Urine Protein (Negative) Urine Glucose (UA) (Negative) Urine Ketones (Negative) Urine Blood (Negative) Urine Nitrite (Negative) Urine Bilirubin (Negative) Urine Urobilinogen (<2.0) mg/dL Ur Leukocyte Esterase (Negative) Urine RBC (0-5) /hpf Urine WBC (0-5) /hpf Ur Squamous Epith Cells (0-4) /hpf Amorphous Sediment (None) /hpf Urine Bacteria (None) /hpf Hyaline Casts (0-2) /lpf Urine Mucus (None) /hpf - Radiology Data Radiology results: report reviewed, image reviewed Disposition Clinical Impression: Acute appendicitis Disposition: ADMITTED IP TO THIS [facility] Time of Disposition: 13:39
[2024-03-13] MEDS: ONDANSETRON 4 MG/2 ML VIAL IVP STA (10:23)
[2024-03-13 10:44] LABS: Amorphous Sediment,Urine Occasional /hpf; Appearance,Urine Clear (Clear); Bacteria,Urine Rare /hpf; Bilirubin,Urine Negative (Negative); Blood,Urine Moderate (Negative); Color,Urine Colorless; Glucose,Urine (UA) Negative (Negative); Hyaline Casts,Urine 1 /lpf (0-2); Ketones,Urine Negative (Negative); Leukocyte Esterase,Urine Moderate (Negative); Mucus,Urine Rare /hpf; Nitrite,Urine Positive (Negative); Protein,Urine Negative (Negative); RBC,Urine 2 /hpf (0-5); Specific Gravity,Urine 1.006 (1.001-1.035); Squamous Epithelial Cell,Urine 9 /hpf (0-4); Urobilinogen,Urine <2.0 mg/dL (<2.0); WBC,Urine 8 /hpf (0-5)
[2024-03-13 11:01] LABS: ALT 9 U/L (4-34); AST 18 U/L (14-36); African American GFR (CKD) 86 (>60 ml/min/1.73 sqM); Albumin 3.1 g/dL (3.5-5.0); Alkaline Phosphatase 99 U/L (38-126); Amylase 45 U/L (30-110); Anion Gap 6 mmol/L; Blood Urea Nitrogen 15 mg/dL (7-17); Calcium 7.9 mg/dL (8.4-10.2); Carbon Dioxide 29 mmol/L (22-30); Chloride 97 mmol/L (98-107); Glucose 130 mg/dL (74-99); Lipase 75 U/L (23-300); Non-African American GFR(CKD) 74 (>60 ml/min/1.73 sqM); Potassium 4.2 mmol/L (3.5-5.1); Sodium 132 mmol/L (137-145); Total Bilirubin 0.6 mg/dL (0.2-1.3); Total Protein 6.5 g/dL (6.3-8.2)
[2024-03-13 11:05] LABS: Basophils % (A) 0 %; Eosinophils # (A) 0.2 k/uL (0-0.7); Eosinophils % (A) 1 %; HCT 39.4 % (34.0-46.0); HGB 12.7 gm/dL (11.4-16.0); Lymphocytes # (A) 1.4 k/uL (1.0-4.8); Lymphocytes % (A) 11 %; MCH 30.2 pg (25.0-35.0); MCHC 32.1 g/dL (31.0-37.0); MCV 94.1 fL (80.0-100.0); Mean Platelet Volume 8.5; Monocytes # (A) 0.7 k/uL (0-1.0); Monocytes % (A) 5 %; Neutrophils # (A) 11.1 k/uL (1.3-7.7); Neutrophils % (A) 82 %; Platelet Count 250 k/uL (150-450); RBC 4.19 m/uL (3.80-5.40); RDW 13.2 % (11.5-15.5); WBC 13.6 k/uL (3.8-10.6)
[2024-03-13] MEDS: HYDROmorphone 0.5 MG/0.5 ML SYRINGE IVP STA (13:03)
--- NOTE | 2024-03-13 13:30 | CT ---
EXAMINATION TYPE: CT abdomen pelvis w con CT DLP: 2849.8 mGycm, Automated exposure control for dose reduction was used. DATE OF EXAM: 03/13/2024 10:51 AM COMPARISON: None. CLINICAL INDICATION:Female, 48 years old with history of RLQ pain; RLQ pain TECHNIQUE: Axial CT of the abdomen and pelvis. Sagittal and coronal reformats were created on a [employer] workstation. Contrast used:100ml mL of Isovue 300 with IV Contrast, (none if empty) Oral contrast used: without Oral Contrast (none if empty) FINDINGS: LOWER CHEST: Bibasilar pleural thickening, right more than left. Ovoid right lower lobe opacity with whorled margins abutting the pleura. Heart is mildly enlarged with prominent pericardial fat noted, e specially on the right. Radiodensity likely tip of a catheter terminates at the right atrium. A few o void fairly circumscribed nodular densities are partially seen in the breasts/chest wall, favored to be benign but please correlate with clinical exam and findings of dedicated breast screening. ABDOMEN LIVER: Possible early cirrhotic morphology. GALLBLADDER AND BILE DUCTS: Gallbladder is surgically absent. There is prominence of the biliary tree (CBD up to 9.5 mm) which may be due to postcholecystectomy status, however this can be correlated wi LFTs. PANCREAS: Couple of coarse calcifications in the head, can be seen with chronic pancreatitis. No evid ence of acute inflammation. There are possibly a couple of tiny cystic lesions in the pancreatic head and body, versus segmental cystic dilatations of the pancreatic duct. MR/MRCP could further evaluate this, and the biliary tree. SPLEEN: Splenic parenchyma appears grossly unremarkable. There is abnormal appearance of the left upp er quadrant however. Deformed left kidney appears closely opposed to the spleen with some small inter vening lower attenuation which extends up to somewhat stellate opacity near the spleen and pancreatic tail; chronic changes/scarring are favored. ADRENAL GLANDS: Right adrenal unremarkable. Left appears mildly thickened.. KIDNEYS AND URETERS: Kidneys appear somewhat lobulated, and the left kidney appears slightly smaller and deformed compared to the right. The right kidney shows no definite calculi. Left kidney shows a c ouple of coarse calcifications which appear along the cortical surface. Prominent extrarenal pelvis o n the left, without dilated ureter seen and no ureteral calculi evident. No hydronephrosis on the rig ht. PELVIS BLADDER: Decompressed with a Calderon balloon in its lumen. REPRODUCTIVE: Uterus is present, not well assessed. Ovaries are not clearly seen. ABDOMEN & PELVIS STOMACH AND BOWEL: Postoperative changes along the stomach may be from gastric sleeve. A small amount of layering opacity in the stomach may represent retained contrast or other hyperdense material. No significantly dilated loops of bowel are seen to suggest obstruction. There is great laxity of the musculature along the right abdominal pelvic wall, with a significant po rtion of the patient's intraperitoneal contents (small bowel, right colon, fat, etc.) bulging and ext ending laterally into the flank beyond the CT images. However there does appear to be increased intra peritoneal hazy opacity in this region with suggestion of a tubular structure posteriorly which might reflect the appendix. If so this appears inflamed measuring up to 16 mm transverse and there is stra nding of the adjacent fat. The cecum is not well seen but there seems to be fatty infiltration of the ileocecal valve. There are likely inflammatory changes abutting the cecum. Moderate amount of stool in the right and transverse colon. In the region of the splenic flexure there appears to be some teth ering of the colon to the area of presumed scarring near the spleen described above. There does not a ppear to be associated obstruction. Additional stool is present in the descending colon, which then e nters a diverting colostomy in the left anterior pelvic wall. Ostomy appears patent. The colon after the ostomy appears relatively decompressed and shows no clearly acute abnormality. There is some para stomal fat herniated along the colonic segments. PERITONEUM/RETROPERITONEUM: No evidence of pneumoperitoneum. There appears to be some free fluid in the right lateral abdomen, and some tracking around bowel loops down into the anterior pelvis. VASCULATURE: Moderate atherosclerotic calcifications are present throughout the abdominal aorta and i ts branches. No evidence of aortic aneurysm. IVC appears of normal caliber. The portal vein, splenic vein, SMV appear to be patent. LYMPH NODES: No pathologically enlarged nodes by CT size criteria. Several mildly prominent retroperi toneal lymph nodes are likely normal reactive. SOFT TISSUE/ABDOMINAL WALL: No acute abnormality otherwise detected. Generalized fatty atrophy of the musculature is noted. MUSCULOSKELETAL: No acute osseous abnormalities. Generalized osteopenia. The proximal femurs appear especially osteopenic, and the patient could be predisposed to hip fractures. Moderate degenerative c hanges of the lumbar spine with near complete fusion of L5 and S1. Mild superior endplate depressions at multiple lumbar levels favored to be chronic. Chronic appearing deformity of the distal sacrum/co ccyx could be result of prior trauma surgery or infection. IMPRESSION: 1. Limited study as described. 2. There seems to be an inflammatory process within the right abdomen, which bulges and extends late rally into the flank beyond the CT images. There is the suggestion of a dilated tubular structure in this region. Overall, findings are worrisome for acute appendicitis. 3. Numerous additional chronic, postoperative, and likely incidental findings as described above. 4. Opacity in the right lung base almost certainly represents round atelectasis.
[2024-03-13] MEDS ORDERED: ACETAMINOPHEN TAB 325 MG TAB PO PRN ×2 (13:46→17:00)
[2024-03-13] MEDS ORDERED: NALOXONE 0.4 MG/ML 1 ML VIAL IV PRN (13:46)
[2024-03-13] MEDS: PIPERACILLIN-TAZOBACTAM 3.375 GM in SODIUM CHLORIDE 0.9% 100 ML IVPB STA (14:46)
[2024-03-13] MEDS: SODIUM CHLORIDE 0.9% 1,000 ML IV SCH (14:47)
[2024-03-13] MEDS: MORPHINE SULFATE 4 MG/ML SYRINGE IV PRN (16:20)
[2024-03-13] MEDS ORDERED: ONDANSETRON 4 MG TAB PO PRN (17:00)
[2024-03-13] MEDS ORDERED: DOCUSATE 100 MG CAP PO PRN (17:00)
[2024-03-13] MEDS ORDERED: LORATADINE 10 MG TAB PO PRN (17:00)
[2024-03-13] MEDS ORDERED: MIDODRINE 5 MG TAB PO PRN (17:00)
[2024-03-13] MEDS: ERTAPENEM 1 GM VIAL IVPB SCH (17:35)
[2024-03-13] MEDS: MELATONIN 5 MG TABLET PO SCH (20:15)
[2024-03-13] MEDS: BACLOFEN 10 MG TAB PO SCH (20:15)
[2024-03-13] MEDS: MAGNESIUM OXIDE 400 MG TAB PO SCH (20:17)
[2024-03-13] MEDS: PRIMIDONE 50 MG TAB PO SCH (20:17)
[2024-03-13] MEDS: FLECAINIDE 50 MG TAB PO SCH (20:18)
[2024-03-13] MEDS: ONDANSETRON 4 MG/2 ML VIAL IVP PRN (20:28)
[2024-03-13] MEDS: GABAPENTIN 300 MG CAP PO SCH (20:28)
[2024-03-13 21:01] LABS: Glucose,Whole Blood 139 mg/dL (70-110)
[2024-03-13] MEDS: INSULIN DETEMIR (LEVEMIR) 100 UNIT/ML SYR SQ SCH (21:02)
[2024-03-13] MEDS: SUVOREXANT 15 MG PO SCH (21:05)
[2024-03-14] MEDS: PIPERACILLIN-TAZOBACTAM 3.375 GM in SODIUM CHLORIDE 0.9% 100 ML IVPB SCH (00:42)
[2024-03-14] MEDS ORDERED: DEXTROSE 50% SYRINGE 50 ML IVP PRN ×2 (09:07)
[2024-03-14] MEDS: FAMOTIDINE 20 MG TAB PO SCH (09:52)
[2024-03-14] MEDS: CHOLECALCIFEROL 25 MCG (1000 IU) TABLET PO SCH (09:53)
[2024-03-14] MEDS: MULTIVITAMINS, THERA 1 EACH TAB PO SCH (09:53)
[2024-03-14] MEDS: OXYBUTYNIN 15 MG TAB.ER.24 PO SCH (09:53)
[2024-03-14] MEDS: METOPROLOL SUCCINATE (ER) 25 MG TAB.ER.24H PO SCH (09:53)
[2024-03-14] MEDS: VENLAFAXINE HCL ER 37.5 MG CAP PO SCH (09:53)
[2024-03-14] MEDS: ERTAPENEM 1 GM in SODIUM CHLORIDE 0.9% 50 ML IVPB SCH (10:59)
[2024-03-14] MEDS: PANTOPRAZOLE 40 MG/10 ML VIAL IV SCH (10:59)
[2024-03-14 11:07] LABS: Glucose,Whole Blood 147 mg/dL (70-110)
[2024-03-14] MEDS: INSULIN ASPART (NovoLOG) 100 UNIT/ML VIAL SQ SCH (11:31)
--- NOTE | 2024-03-14 11:43 | P.GSHP ---
History of Present Illness H&P Date: 03/14/24 CHIEF COMPLAINT: Abdominal pain HISTORY OF PRESENT ILLNESS: This is a 48-year-old female who presented with right lower quadrant abdominal pain that started 3 days ago. Patient reports that she had pain in the right lower quadrant and its radiated across the lower abdomen. She was having some nausea and vomiting. No fevers. She had been hypotensive. CT scan abdomen and pelvis completed that reported inflammatory process within the right abdomen which bulges and extends laterally into the f lank. There is suggestion of a dilated tubular structure in this region findings are worrisome for acute appendicitis. Patient started on antibiotics admitted to surgical service for acute appendicitis. Patient has a history of atrial fibrillation and on Eliquis at home. She reports her last dose of Eliquis was on Thursday. Patient has been on IV antibiotics outpatient for UTI. Patient has history of diverting colostomy 5 years ago for decreased decubitus ulcers due [facility]. 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 REVIEW OF SYSTEMS: CONSTITUTIONAL: Denies fever or chills. HEENT: Denies blurred vision, vision changes, or eye pain. Denies hemoptysis CARDIOVASCULAR: Denies chest pain or pressure. RESPIRATORY: No shortness of breath. GASTROINTESTINAL: See HPI for pertinent findings HEMATOLOGIC: Denies bleeding disorders. GENITOURINARY: Denies any blood in urine or increased urinary frequency. SKIN: Denies pruitis. Denies rash. PHYSICAL EXAM: VITAL SIGNS: Reviewed GENERAL: Well-developed in no acute distress. ABDOMEN: Soft. Obese. Nondistended. Tenderness right lower quadrant NEUROLOGIC: Alert and oriented. Cranial nerves II through XII grossly intact. LABORATORY DATA: WBC 13.6 Hgb 12.7 platelets 250 Sodium is 132 potassium is 4.2 creatinine 0.91 Lipase 75 Urine hCG not detected IMAGING: CT scan abdomen and pelvis reports there seems to be an inflammatory process within the right abdomen, which bulges and extends laterally into the flank beyond CT images. There is suggestion of a dilated tubular structure at this region. Findings are worrisome for acute appendicitis. Numerous additional chronic postoperative and likely incidental findings. Opacity in right lung base represents atelectasis. ASSESSMENT: 1. Acute appendicitis 2. History of Shira Wall syndrome 3. UTI had been on IV antibiotics outpatient 4. A-fib. On Eliquis at home PLAN: -Patient scheduled for laparoscopic appendectomy today with Dr. Garcia -N.p.o. after midnight -Continue antibiotics -Continue IV fluids Physician [employer] Nibs Inspector note has been reviewed by physician. Signing provider agrees with the documented findings, assessment, and plan of care. Past Medical History Past Medical History: Atrial Fibrillation, Diabetes Mellitus, GERD/Reflux, Seizure Disorder Additional Past Medical History / Comment(s): admitted to [facility] May 2022 for sepsis/uti,acute renal failure. 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 uses a beata lift,goff catheter,colostomy,chronic inflammatory demyelinating polyneuritis,anemia,date of last seizure unk History of Any Multi-Drug Resistant Organisms: ESBL Date of last positivie culture/infection: 11/17/23 ESBL E.coli MDRO Source:: Urine Additional Past Surgical History / Comment(s): Urethral stents x 2 Smoking Status: Never smoker Past Alcohol Use History: None Reported Past Drug Use History: None Reported - Past Family History Father History Unknown: Yes Medications and Allergies Home Medications Medication Instructions Recorded Confirmed Type Acetaminophen Tab [Tylenol] 650 mg PO Q6H PRN 06/18/22 03/13/24 History Apixaban [Eliquis] 5 mg PO BID 06/18/22 03/13/24 History Baclofen 5 mg PO BID 06/18/22 03/13/24 History Flecainide Acetate 50 mg PO BID 06/18/22 03/13/24 History Gabapentin [Neurontin] 300 mg PO BID 06/18/22 03/13/24 History Insulin Glargine,Hum.rec.anlog 12 units SQ BID 06/18/22 03/13/24 History [Lantus Solostar Pen] Mag Hydrox/Al Hydrox/Simeth 30 ml PO Q6H PRN 06/18/22 03/13/24 History [Maalox] Melatonin [Melatonin ER] 10 mg PO HS 06/18/22 03/13/24 History Metoprolol Succinate (ER) [Toprol 25 mg PO DAILY 06/18/22 03/13/24 History Xl] Midodrine HCl [ProAmatine] 10 mg PO DAILY PRN 06/18/22 03/13/24 History Multivitamins, Thera [Multivitamin 1 tab PO DAILY 06/18/22 03/13/24 History (formulary)] Oxybutynin Chloride [Oxybutynin 15 mg PO DAILY 06/18/22 03/13/24 History Chloride ER] Primidone [Mysoline] 50 mg PO HS 06/18/22 03/13/24 History Cholecalciferol [Vitamin D3 (25 50 mcg PO DAILY 11/19/23 03/13/24 History Mcg = 1000 Iu)] Docusate Sodium [Dok] 100 mg PO DAILY PRN 11/19/23 03/13/24 History Famotidine [Pepcid] 20 mg PO DAILY 11/19/23 03/13/24 History HYDROcodone/APAP 10-325MG [[place] 1 tab PO Q4HR PRN 11/19/23 03/13/24 History 10-325] Insulin Lispro [humaLOG Kwikpen] See Protocol SQ AC-TID 11/19/23 03/13/24 History Loratadine [Claritin] 10 mg PO DAILY PRN 11/19/23 03/13/24 History Magnesium Oxide [Mag-Ox] 400 mg PO BID 11/19/23 03/13/24 History Semaglutide [Ozempic] 1 mg SQ SA 11/19/23 03/13/24 History Suvorexant [Belsomra] 15 mg PO HS 11/19/23 03/13/24 History Venlafaxine HCl ER [Effexor Xr] 37.5 mg PO DAILY 11/19/23 03/13/24 History 0.9 % Sodium Chloride [Sodium 10 ml IV DAILY 03/13/24 03/13/24 History Chloride Flush] Ertapenem [INVanz] 1 gm IVPB Q24H 03/13/24 03/13/24 History Ondansetron [Zofran] 4 mg PO TID PRN 03/13/24 03/13/24 History levETIRAcetam [Keppra] 750 mg PO Q12HR 03/13/24 03/13/24 History Allergies Allergy/AdvReac Type Severity Reaction Status Date / Time shellfish derived [Shellfish] Allergy Unknown Verified 03/13/24 14:13 strawberry Allergy Unknown Verified 03/13/24 14:13 Surgical - Exam Vital Signs Temp Pulse Resp BP Pulse Ox 98.6 F 76 18 94/68 93 L 03/13/24 09:18 03/13/24 09:18 03/13/24 09:18 03/13/24 09:18 03/13/24 09:18 Results - Labs 03/13/24 10:02 03/13/24 10:02 Abnormal Lab Results - Last 24 Hours (Table) 03/13/24 03/14/24 Range/Units 21:00 11:04 POC Glucose (mg/dL) 139 H 147 H (70-110) mg/dL
--- NOTE | 2024-03-14 12:31 | P.CONS ---
History of Present Illness - Reason for Consult Consult date: 03/14/24 Medical management - Chief Complaint Abdominal pain - History of Present Illness * [id number]-year-old patient with multiple medical comorbidities including renal stones with recurrent urinary tract infection, history of seizure, s/p colostomy, history of [place]ra Wall, atrial fibrillation, diabetes mellitus type 2, gastroesophageal reflux disease, morbid obesity presents to the emergency department with complaints of acute onset of right lower quadrant abdominal discomfort. Patient symptoms onset was 24 hours prior to presentation. Patient did complain of associated nausea, vomiting, patient checked her temperature at home which was noted to be 99, patient states she took [place] with minimal relief. Patient does have an ostomy in place and no changes in her bowel habits were noted. Patient has been on outpatient IV antibiotic and has a PICC line in place already. * Workup initiated in ER included CBC which showed WBC count of 13.6, hemoglobin of 12.7 platelet count of 250, serum chemistry showed sodium 132 potassium 4.2 chloride 97 BUN 15 creatinine 0.91 lipase and amylase within normal limits urinalysis was obtained which showed moderate amount of blood, urine nitrate, moderate leukocyte esterase, * CT abdomen and pelvis was obtained which raised suspicion for acute appendi citis, see CT report for details multiple chronic changes noted * Patient was resuscitated with IV fluid received 2 L of fluid bolus and started on maintenance hydration, patient does take Eliquis at home which is placed on hold in anticipation of surgical intervention * Medicine team will continue to follow along, patient admitted under the general surgery team as primary REVIEW OF SYSTEMS: Nausea, vomiting, abdominal pain CONSTITUTIONAL: No fever, no malaise, no fatigue. HEENT: No recent visual problems or hearing problems. Denied any sore throat. CARDIOVASCULAR: No chest pain, orthopnea, PND, no palpitations, no syncope. PULMONARY: No shortness of breath, no cough, no hemoptysis. GASTROINTESTINAL: Nausea, vomiting, abdominal pain NEUROLOGICAL: No headaches, no weakness, no numbness. HEMATOLOGICAL: Denies any bleeding or petechiae. GENITOURINARY: Denies any burning micturition, frequency, or urgency. MUSCULOSKELETAL/RHEUMATOLOGICAL: Denies any joint pain, swelling, or any muscle pain. ENDOCRINE: Denies any polyuria or polydipsia. PHYSICAL EXAMINATION: GENERAL: The patient is alert and oriented x3, morbidly obese, ill appearance HEENT: Pupils are round and equally reacting to light. EOMI. CARDIOVASCULAR: S1 and S2 present. No murmurs, rubs, or gallops. PULMONARY: Chest is clear to auscultation, no wheezing or crackles. ABDOMEN: , ostomy in place, patient did not let palpate abdomen secondary to discomfort MUSCULOSKELETAL: No joint swelling or deformity. EXTREMITIES: No cyanosis, clubbing, or pedal edema. NEUROLOGICAL: Gross neurological examination did not reveal any focal deficits. SKIN: No rashes. Assessment and plan * Right lower quadrant abdominal pain with suspected acute appendicitis * Chronic atrial fibrillation * Recurrent urinary tract infection on outpatient IV antibiotics * Diabetes mellitus type 2 * History of seizure disorder * Morbid obesity * Chronic inflammatory demyelinating polyneuritis * History of bowel resection s/p colostomy * In regards to abdominal pain, CT abdomen pelvis obtained, patient admitted und er surgical service, remains n.p.o. continue IV antibiotic, pain control, antiemetics * In regards to atrial fibrillation continue patient on telemonitoring, continue flecainide, metoprolol, Eliquis remains on hold in anticipation of surgical intervention * In regards to urinary tract infection continue patient on IV ertapenem, infectious disease consulted * In regards to diabetes mellitus, Accu-Cheks ACHS, while n.p.o. monitor for hypoglycemia, continue correctional insulin and Lantus * In regards to seizure disorder continue Keppra * Cardiology consulted to give preoperative cardiac clearance for any surgical intervention Past Medical History Past Medical History: Atrial Fibrillation, Diabetes Mellitus, GERD/Reflux, Seizure Disorder Additional Past Medical History / Comment(s): admitted to [facility] May 2022 for sepsis/uti,acute renal failure. 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,goff catheter,colostomy,chronic inflammatory demyelinating polyneuritis,anemia,date of last seizure unk History of Any Multi-Drug Resistant Organisms: ESBL Year Discovered:: 11/17/23 ESBL E.coli MDRO Source:: Urine Additional Past Surgical History / Comment(s): Urethral stents x 2 Smoking Status: Never smoker Past Alcohol Use History: None Reported Past Drug Use History: None Reported - Past Family History Father History Unknown: Yes Medications and Allergies Home Medications Medication Instructions Recorded Confirmed Type Acetaminophen Tab [Tylenol] 650 mg PO Q6H PRN 06/18/22 03/13/24 History Apixaban [Eliquis] 5 mg PO BID 06/18/22 03/13/24 History Baclofen 5 mg PO BID 06/18/22 03/13/24 History Flecainide Acetate 50 mg PO BID 06/18/22 03/13/24 History Gabapentin [Neurontin] 300 mg PO BID 06/18/22 03/13/24 History Insulin Glargine,Hum.rec.anlog 12 units SQ BID 06/18/22 03/13/24 History [Lantus Solostar Pen] Mag Hydrox/Al Hydrox/Simeth 30 ml PO Q6H PRN 06/18/22 03/13/24 History [Maalox] Melatonin [Melatonin ER] 10 mg PO HS 06/18/22 03/13/24 History Metoprolol Succinate (ER) [Toprol 25 mg PO DAILY 06/18/22 03/13/24 History Xl] Midodrine HCl [ProAmatine] 10 mg PO DAILY PRN 06/18/22 03/13/24 History Multivitamins, Thera [Multivitamin 1 tab PO DAILY 06/18/22 03/13/24 History (formulary)] Oxybutynin Chloride [Oxybutynin 15 mg PO DAILY 06/18/22 03/13/24 History Chloride ER] Primidone [Mysoline] 50 mg PO HS 06/18/22 03/13/24 History Cholecalciferol [Vitamin D3 (25 50 mcg PO DAILY 11/19/23 03/13/24 History Mcg = 1000 Iu)] Docusate Sodium [Dok] 100 mg PO DAILY PRN 11/19/23 03/13/24 History Famotidine [Pepcid] 20 mg PO DAILY 11/19/23 03/13/24 History HYDROcodone/APAP 10-325MG [[place] 1 tab PO Q4HR PRN 11/19/23 03/13/24 History 10-325] Insulin Lispro [humaLOG Kwikpen] See Protocol SQ AC-TID 11/19/23 03/13/24 History Loratadine [Claritin] 10 mg PO DAILY PRN 11/19/23 03/13/24 History Magnesium Oxide [Mag-Ox] 400 mg PO BID 11/19/23 03/13/24 History Semaglutide [Ozempic] 1 mg SQ SA 11/19/23 03/13/24 History Suvorexant [Belsomra] 15 mg PO HS 11/19/23 03/13/24 History Venlafaxine HCl ER [Effexor Xr] 37.5 mg PO DAILY 11/19/23 03/13/24 History 0.9 % Sodium Chloride [Sodium 10 ml IV DAILY 03/13/24 03/13/24 History Chloride Flush] Ertapenem [INVanz] 1 gm IVPB Q24H 03/13/24 03/13/24 History Ondansetron [Zofran] 4 mg PO TID PRN 03/13/24 03/13/24 History levETIRAcetam [Keppra] 750 mg PO Q12HR 03/13/24 03/13/24 History Allergies Allergy/AdvReac Type Severity Reaction Status Date / Time shellfish derived [Shellfish] Allergy Unknown Verified 03/13/24 14:13 strawberry Allergy Unknown Verified 03/13/24 14:13 Physical Exam Vitals: Vital Signs Temp Pulse Resp BP Pulse Ox 03/14/24 07:39 97.4 F L 76 18 100/63 96 03/14/24 06:39 77 18 85/60 96 03/14/24 03:11 80 18 92/49 94 L 03/14/24 01:00 83/50 03/13/24 23:43 87/52 03/13/24 22:26 85/67 03/13/24 21:05 91 18 79/40 93 L 03/13/24 16:00 84 20 99/42 94 L 03/13/24 13:08 83 16 94/63 94 L 03/13/24 11:33 81 18 92/56 95 03/13/24 09:18 98.6 F 76 18 94/68 93 L Results CBC & Chem 7: 03/13/24 10:02 03/13/24 10:02 Labs: Abnormal Lab Results - Last 24 Hours (Table) 03/13/24 03/13/24 03/13/24 Range/Units 10:02 10:02 10:02 WBC 13.6 H (3.8-10.6) k/uL Neutrophils # 11.1 H (1.3-7.7) k/uL Sodium 132 L (137-145) mmol/L Chloride 97 L (98-107) mmol/L Glucose 130 H (74-99) mg/dL POC Glucose (mg/dL) (70-110) mg/dL Calcium 7.9 L (8.4-10.2) mg/dL Albumin 3.1 L (3.5-5.0) g/dL Urine Blood Moderate H (Negative) Urine Nitrite Positive H (Negative) Ur Leukocyte Esterase Moderate H (Negative) Urine WBC 8 H (0-5) /hpf Ur Squamous Epith Cells 9 H (0-4) /hpf Amorphous Sediment Occasional H (None) /hpf Urine Bacteria Rare H (None) /hpf Urine Mucus Rare H (None) /hpf 03/13/24 Range/Units 21:00 WBC (3.8-10.6) k/uL Neutrophils # (1.3-7.7) k/uL Sodium (137-145) mmol/L Chloride (98-107) mmol/L Glucose (74-99) mg/dL POC Glucose (mg/dL) 139 H (70-110) mg/dL Calcium (8.4-10.2) mg/dL Albumin (3.5-5.0) g/dL Urine Blood (Negative) Urine Nitrite (Negative) Ur Leukocyte Esterase (Negative) Urine WBC (0-5) /hpf Ur Squamous Epith Cells (0-4) /hpf Amorphous Sediment (None) /hpf Urine Bacteria (None) /hpf Urine Mucus (None) /hpf
[2024-03-14] MEDS: levETIRAcetam IV 500 MG/5 ML VIAL IVP STA (14:05)
--- NOTE | 2024-03-14 14:33 | P.CRDCN ---
History of Present Illness Consult date: 03/14/24 Reason for Consult (text): Preop cardiac clearance History of present illness: History of present illness: This is a 48-year-old female last with past medical history of atrial fibrillation on Eliquis and flecainide, diabetes mellitus type 2, gastroesophageal reflux disease, Guillain-Wall syndrome, chronic inflammatory demyelinating polyneuritis, chronic anemia, seizure disorder, history of kidney stones, frequent urinary tract infections and sepsis usually treated at [facility]. Patient has been seen by Dr. Lainey Tobin in the office with most recent visit on 07/14/2022. We have been asked to evaluate the patient for preop cardiac clearance. She is scheduled for left appendectomy on 03/14. Patient presented to the emergency center due to right lower quadrant abdominal pain and CT was concerning for acute appendicitis. Patient is scheduled for laparoscopic appendectomy on 03/14. Patient also has PICC line in place with IV antibiotics for urinary tract infection with Invanz prior to admission. She denies chest pain and shortness of breath. Her last dose of Eliquis was taken on 03/13. 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 EKG sinus rhythm with early repolarization, no acute ST changes. CT of the abdomen pelvis. Inflammatory process in the right abdomen suggestive of dilated tubular structure. Findings worrisome for acute appendicitis. WBC 13.6, hemoglobin 12.7. Sodium 132, potassium 4.2. Creatinine 0.91. hCG not detected. Urinalysis abnormal. Home cardiac medications: Eliquis 5 mg twice daily-last dose 03/13, flecainide 50 mg twice daily, Toprol XL 25 mg daily, midodrine 10 mg daily as needed. Review Of Systems: At the time of my exam: CONSTITUTIONAL: Denies fever or chills. HEENT: Denies blurred vision, vision changes, or eye pain. Denies hemoptysis CARDIOVASCULAR: Denies chest pain. Denies orthopnea. Denies PND. Denies palpitations RESPIRATORY: Denies shortness of breath. GASTROINTESTINAL: Reports abdominal pain. Denies nausea or vomiting. HEMATOLOGIC: Denies bleeding disorders. GENITOURINARY: Denies any blood in urine. SKIN: Denies pruitis. Denies rash. Physical examination: Gen: This is a 48-year-old female in no acute distress VS: reviewed. Blood pressure 100/63, heart rate 76, pulse ox 96% on 2 L nasal cannula. HEENT: Head is atraumatic, normocephalic. Pupils equal, round. Sclerae is anicteric. NECK: Supple. No JVD. LUNGS: Clear to auscultation. No wheezes or rhonchi. No intercostal retractions. HEART: Regular rate and rhythm. No murmur. ABDOMEN: Soft Significant tenderness right side. EXTREMITIES: No pedal edema. No calf tenderness. NEUROLOGICAL: Patient is awake, alert and oriented x3. Assessment: Acute appendicitis Paroxysmal atrial fibrillation Urinary tract infection on IV Invanz Chronic inflammatory demyelinating polyneuritis Diabetes mellitus Gastroesophageal reflux disease Quadriplegia Seizure disorder Plan: Continue to hold Eliquis Continue flecainide and Toprol XL Patient is cleared from cardiology for laparoscopic appendectomy. Continue to hold Eliquis and resume following surgery. Obtain 2-D echocardiogram and Doppler study to assess cardiac structure and function Further recommendations to follow based upon clinical course Thank you kindly for this consultation. Nurse practitioner note has been reviewed, I agree with documented findings and plan of care. Patient was seen and examined. Past Medical History Past Medical History: Atrial Fibrillation, Diabetes Mellitus, GERD/Reflux, Seizure Disorder Additional Past Medical History / Comment(s): admitted to [facility] May [facility] for sepsis/uti,acute renal failure. 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 uses a beata lift,goff catheter,colostomy,chronic inflammatory demyelinating polyneuritis,anemia,date of last seizure unk History of Any Multi-Drug Resistant Organisms: ESBL Date of last positivie culture/infection: 11/17/23 ESBL E.coli MDRO Source:: Urine Additional Past Surgical History / Comment(s): Urethral stents x 2 Smoking Status: Never smoker Past Alcohol Use History: None Reported Past Drug Use History: None Reported - Past Family History Father History Unknown: Yes Medications and Allergies Home Medications Medication Instructions Recorded Confirmed Type Acetaminophen Tab [Tylenol] 650 mg PO Q6H PRN 06/18/22 03/13/24 History Apixaban [Eliquis] 5 mg PO BID 06/18/22 03/13/24 History Baclofen 5 mg PO BID 06/18/22 03/13/24 History Flecainide Acetate 50 mg PO BID 06/18/22 03/13/24 History Gabapentin [Neurontin] 300 mg PO BID 06/18/22 03/13/24 History Insulin Glargine,Hum.rec.anlog 12 units SQ BID 06/18/22 03/13/24 History [Lantus Solostar Pen] Mag Hydrox/Al Hydrox/Simeth 30 ml PO Q6H PRN 06/18/22 03/13/24 History [Maalox] Melatonin [Melatonin ER] 10 mg PO HS 06/18/22 03/13/24 History Metoprolol Succinate (ER) [Toprol 25 mg PO DAILY 06/18/22 03/13/24 History Xl] Midodrine HCl [ProAmatine] 10 mg PO DAILY PRN 06/18/22 03/13/24 History Multivitamins, Thera [Multivitamin 1 tab PO DAILY 06/18/22 03/13/24 History (formulary)] Oxybutynin Chloride [Oxybutynin 15 mg PO DAILY 06/18/22 03/13/24 History Chloride ER] Primidone [Mysoline] 50 mg PO HS 06/18/22 03/13/24 History Cholecalciferol [Vitamin D3 (25 50 mcg PO DAILY 11/19/23 03/13/24 History Mcg = 1000 Iu)] Docusate Sodium [Dok] 100 mg PO DAILY PRN 11/19/23 03/13/24 History Famotidine [Pepcid] 20 mg PO DAILY 11/19/23 03/13/24 History HYDROcodone/APAP 10-325MG [[place] 1 tab PO Q4HR PRN 11/19/23 03/13/24 History 10-325] Insulin Lispro [humaLOG Kwikpen] See Protocol SQ AC-TID 11/19/23 03/13/24 History Loratadine [Claritin] 10 mg PO DAILY PRN 11/19/23 03/13/24 History Magnesium Oxide [Mag-Ox] 400 mg PO BID 11/19/23 03/13/24 History Semaglutide [Ozempic] 1 mg SQ SA 11/19/23 03/13/24 History Suvorexant [Belsomra] 15 mg PO HS 11/19/23 03/13/24 History Venlafaxine HCl ER [Effexor Xr] 37.5 mg PO DAILY 11/19/23 03/13/24 History 0.9 % Sodium Chloride [Sodium 10 ml IV DAILY 03/13/24 03/13/24 History Chloride Flush] Ertapenem [INVanz] 1 gm IVPB Q24H 03/13/24 03/13/24 History Ondansetron [Zofran] 4 mg PO TID PRN 03/13/24 03/13/24 History levETIRAcetam [Keppra] 750 mg PO Q12HR 03/13/24 03/13/24 History Allergies Allergy/AdvReac Type Severity Reaction Status Date / Time shellfish derived [Shellfish] Allergy Unknown Verified 03/13/24 14:13 strawberry Allergy Unknown Verified 03/13/24 14:13 Physical Exam Vitals: Vital Signs Temp Pulse Resp BP Pulse Ox 03/14/24 07:39 97.4 F L 76 18 100/63 96 03/14/24 06:39 77 18 85/60 96 03/14/24 03:11 80 18 92/49 94 L 03/14/24 01:00 83/50 03/13/24 23:43 87/52 03/13/24 22:26 85/67 03/13/24 21:05 91 18 79/40 93 L 03/13/24 16:00 84 20 99/42 94 L 03/13/24 13:08 83 16 94/63 94 L 03/13/24 11:33 81 18 92/56 95 Results 03/13/24 10:02 03/13/24 10:02 CBC 03/13/24 Range/Units 10:02 WBC 13.6 H (3.8-10.6) k/uL RBC 4.19 (3.80-5.40) m/uL Hgb 12.7 (11.4-16.0) gm/dL Hct 39.4 (34.0-46.0) % Plt Count 250 (150-450) k/uL Current Medications Generic Name Dose Route Start Last Admin Trade Name Freq PRN Reason Stop Dose Admin Acetaminophen 650 mg 03/13/24 13:46 Acetaminophen Tab 325 Mg Tab PO Q6HR PRN Mild Pain or Fever > 100.5 Hydrocodone Bitart/Acetaminophen 1 each 03/13/24 13:46 Hydrocodone/Apap 5-325mg 1 Each Tab PO Q4HR PRN Moderate Pain (Scale 4 to 6) Hydrocodone Bitart/Acetaminophen 1 each 03/13/24 17:00 Hydrocodone/Apap 10-325mg 1 Each Tab PO Q4HR PRN SEVERE Pain (SCALE 7-10) Al Hydroxide/Mg Hydroxide 30 ml 03/13/24 17:00 Mag Hydrox/Al Hydrox/Simeth 30 Ml Cup PO Q6H PRN Heartburn Baclofen 5 mg 03/13/24 21:00 03/14/24 09:52 Baclofen 10 Mg Tab PO Not Given BID EVA Cholecalciferol 50 mcg 03/14/24 09:00 03/14/24 09:53 Cholecalciferol 25 Mcg (1000 Iu) Tablet PO Not Given DAILY EVA Dextrose/Water 25 ml 03/14/24 09:07 Dextrose 50% Syringe 50 Ml IVP PER PROTOCOL PRN Hypoglycemia Protocol Dextrose/Water 50 ml 03/14/24 09:07 Dextrose 50% Syringe 50 Ml IVP PER PROTOCOL PRN Hypoglycemia Protocol Docusate Sodium 100 mg 03/13/24 17:00 Docusate 100 Mg Cap PO DAILY PRN Constipation Famotidine 20 mg 03/14/24 09:00 03/14/24 09:52 Famotidine 20 Mg Tab PO Not Given DAILY EVA Flecainide Acetate 50 mg 03/13/24 21:00 03/14/24 09:52 Flecainide 50 Mg Tab PO Not Given BID EVA Gabapentin 300 mg 03/13/24 21:00 03/14/24 09:52 Gabapentin 300 Mg Cap PO Not Given BID EVA Piperacillin Sod/Tazobactam 100 mls @ 25 mls/hr 03/14/24 00:00 03/14/24 00:42 Sod 3.375 gm/ Sodium Chloride IVPB 25 mls/hr Q8HR EVA Administration Protocol Sodium Chloride 1,000 mls @ 75 mls/hr 03/13/24 14:00 03/14/24 03:51 Saline 0.9% IV 75 mls/hr .[id number] EVA Administration Ertapenem 1 gm/ Sodium 50 mls @ 100 mls/hr 03/14/24 09:00 03/14/24 10:59 Chloride IVPB 03/18/24 09:01 100 mls/hr DAILY [facility] Administration Insulin Aspart 0 unit 03/14/24 12:30 Insulin Aspart (Novolog) 100 Unit/Ml Vial SQ ACHS [facility] Protocol Insulin Detemir 12 unit 03/13/24 21:00 03/13/24 21:02 Insulin Detemir (Levemir) 100 Unit/Ml Syr SQ Not Given BID [facility] Levetiracetam 750 mg 03/13/24 21:00 03/14/24 09:52 Levetiracetam 750 Mg Tab PO Not Given Q12HR EVA Loratadine 10 mg 03/13/24 17:00 Loratadine 10 Mg Tab PO DAILY PRN Congestion Magnesium Oxide 400 mg 03/13/24 21:00 03/14/24 09:53 Magnesium Oxide 400 Mg Tab PO Not Given BID [facility] Melatonin 10 mg 03/13/24 21:00 03/13/24 20:15 Melatonin 5 Mg Tablet PO 10 mg HS [facility] Administration Metoprolol Succinate 25 mg 03/14/24 09:00 03/14/24 09:53 Metoprolol Succinate (Er) 25 Mg Tab.Er.24h PO Not Given DAILY [facility] Midodrine 10 mg 03/13/24 17:00 Midodrine 5 Mg Tab PO DAILY PRN sys<100 Morphine Sulfate 4 mg 03/13/24 13:46 03/14/24 09:56 Morphine Sulfate 4 Mg/Ml Syringe IV 4 mg Q4HR PRN Administration Severe Pain (Scale 7 to 10) Multivitamins 1 each 03/14/24 09:00 03/14/24 09:53 Multivitamins, Thera 1 Each Tab PO Not Given DAILY [facility] Naloxone HCl 0.2 mg 03/13/24 13:46 Naloxone 0.4 Mg/Ml 1 Ml Vial IV Q2M PRN Opioid Reversal Non-Formulary Medication 1 mg 03/19/24 09:00 Semaglutide [Ozempic] SQ SA [facility] Non-Formulary Medication 15 mg 03/13/24 21:00 03/13/24 21:05 Suvorexant [Belsomra] PO Not Given HS [facility] Ondansetron HCl 4 mg 03/13/24 13:46 03/13/24 20:28 Ondansetron 4 Mg/2 Ml Vial IVP 4 mg Q8HR PRN Administration Nausea And Vomiting Oxybutynin Chloride 15 mg 03/14/24 09:00 03/14/24 09:53 Oxybutynin 15 Mg Tab.Er.24 PO Not Given DAILY [facility] Pantoprazole Sodium 40 mg 03/14/24 09:00 03/14/24 10:59 Pantoprazole 40 Mg/10 Ml Vial IV 40 mg DAILY EVA Administration Primidone 50 mg 03/13/24 21:00 03/13/24 20:17 Primidone 50 Mg Tab PO 50 mg HS EVA Administration Sodium Chloride 10 ml 03/14/24 09:00 03/14/24 10:59 Sodium Chloride 0.9% Flush 10 Ml Syringe IV 10 ml DAILY [facility]A Administration Venlafaxine HCl 37.5 mg 03/14/24 09:00 03/14/24 09:53 Venlafaxine Hcl Er 37.5 Mg Cap PO Not Given DAILY [facility]A 03/13/24 10:02 03/13/24 10:02
[2024-03-14] MEDS: HYDROmorphone 1 MG/ML 1 ML SYRINGE IVP STA (16:42)
[2024-03-14 18:18] LABS: Glucose,Whole Blood 100 mg/dL (70-110)
[2024-03-14] MEDS: MIDAZOLAM 2 MG/2 ML VIAL IVP ONE (19:35)
[2024-03-14] MEDS: LACTATED RINGERS 1,000 ML IV ONE ×2 (19:37→22:22)
[2024-03-14] MEDS: LIDOCAINE 1%-EPI 1:100,000 20 ML VIAL SQ ONE (20:23)
[2024-03-14] MEDS ORDERED: PHENYLEPHRINE 10 MG/ML VIAL ONE (20:34)
[2024-03-14] MEDS ORDERED: SUCCINYLCHOLINE CHLORIDE 200 MG/10 ML VIAL IV ONE (20:34)
[2024-03-14] MEDS ORDERED: fentaNYL (PF) 50 MCG/ML 2 ML AMP ONE (20:34)
[2024-03-14] MEDS ORDERED: NEOSTIGMINE 1 MG/ML 10 ML VIAL ONE (20:34)
[2024-03-14] MEDS ORDERED: PROPOFOL 10 MG/ML 20 ML VIAL IV ONE (20:34)
[2024-03-14] MEDS ORDERED: KETAMINE HCL IN 0.9 % NACL 50 MG/5 ML SYRINGE ONE (20:34)
[2024-03-14] MEDS ORDERED: GLYCOPYRROLATE 0.2 MG/ML 2 ML VIAL ONE (20:34)
[2024-03-14] MEDS ORDERED: MIDAZOLAM 2 MG/2 ML VIAL ONE (20:34)
[2024-03-14] MEDS ORDERED: ROCURONIUM 10 MG/ML (5 ML VIAL) IV ONE (20:34)
[2024-03-14] MEDS ORDERED: ONDANSETRON 4 MG/2 ML VIAL IVP PRN (21:28)
[2024-03-14] MEDS ORDERED: NALOXONE 0.4 MG/ML 1 ML VIAL IV PRN (21:28)
--- NOTE | 2024-03-14 21:28 | P.OP ---
Date of Procedure: 03/14/24 Preoperative Diagnosis: acute appendicitis Postoperative Diagnosis: acute ruptured appendicitis Procedure(s) Performed: diagnostic laparoscopy Open appendectomy Anesthesia: DEON Surgeon: Antonio Garcia Estimated Blood Loss (ml): 50 Pathology: other (appendix) Condition: stable Disposition: PACU Description of Procedure: the patient's placed on the operating table in the supine position. She received general endotracheal tube anesthesia. Her abdomen was prepped and draped usual fashion. Patient colostomy left lower quadrant. She is morbidly obese. Her abdomen is very large. Using a 11 blade a small marisol incision was made in the left upper quadrant. Then using a Veress needle the panel cavity is entered. The abdomen was then insufflated. After adequate insufflation the Veress needle was removed and then a 5 mm optical trocar is placed into the peritoneal cavity in the left upper quadrant. There were significant adhesions noted through the abdomen. Due to the adhesions decided to change the procedure to a open appendectomy. A midline skin incision was made above the umbilicus. And then using left cautery the abdominal wall was divided. the peritoneal cavity was entered. The abdomen was explored. There was inflammatory mass located in the right lateral area. This was brought the wound. There was evidence of perforated appendicitis. The nasopharynx was divided with the Harmonic scissors. And then using 0 Vicryl suture in the mesial appendix was ligated. The appendix was then divided at the base appendix using a JULIO CESAR stapler. The specimens of pathology. The abdomen was then irrigated with 3 L of normal saline. A JANELLE drain is placed along the right paracolic gutter. Is brought through separate stab incision in the right upper quadrant. The fascia was then closed in looped #1 PDS suture. Skin was closed obi. Patient top procedure well. She was sent to recovery room stable condition.
--- NOTE | 2024-03-14 21:48 | P.CONS ---
History of Present Illness - Reason for Consult Consult date: 03/14/24 - History of Present Illness Patient is a 48-year-old female with a past medical history being for diabetes mellitus reflux seizure disorder atrial fibrillation presenting to the hospital for evaluation of right lower quadrant abdominal pain patient symptom has been on for the last few days however has got worse over the last 24 hours patient describing the pain to be sharp moderate intensity about 7-8 out of 10 without any radiation did have associated nausea and vomiting along with some fever and chills with the symptoms the patient was evaluated on presentation to the hospital patient did not have any fever patient was not tachycardic mildly hypotensive and hypoxic currently on a 2 L nasal cannula oxygen, patient did have white count 13.6 creatinine 0.91 liver isms are normal urine has been mildly positive patient did have a CT of abdominal pelvis concerning for inflammatory changes to the right lower quadrant area suggestive of acute appendicitis did not mention any perforation patient was started on Zosyn admitted to hospital infectious disease was consulted for further management of antibiotic therapy Past Medical History Past Medical History: Atrial Fibrillation, Diabetes Mellitus, GERD/Reflux, Seizure Disorder Additional Past Medical History / Comment(s): admitted to [facility] May 2022 for sepsis/uti,acute renal failure. 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 uses a beata lift,goff catheter,colostomy,chronic inflammatory demyelinating polyneuritis,anemia,date of last seizure unk History of Any Multi-Drug Resistant Organisms: ESBL Year Discovered:: 11/17/23 ESBL E.coli MDRO Source:: Urine Additional Past Surgical History / Comment(s): Urethral stents x 2 Smoking Status: Never smoker Past Alcohol Use History: None Reported Past Drug Use History: None Reported - Past Family History Father History Unknown: Yes Medications and Allergies Home Medications Medication Instructions Recorded Confirmed Type Acetaminophen Tab [Tylenol] 650 mg PO Q6H PRN 06/18/22 03/13/24 History Apixaban [Eliquis] 5 mg PO BID 06/18/22 03/13/24 History Baclofen 5 mg PO BID 06/18/22 03/13/24 History Flecainide Acetate 50 mg PO BID 06/18/22 03/13/24 History Gabapentin [Neurontin] 300 mg PO BID 06/18/22 03/13/24 History Insulin Glargine,Hum.rec.anlog 12 units SQ BID 06/18/22 03/13/24 History [Lantus Solostar Pen] Mag Hydrox/Al Hydrox/Simeth 30 ml PO Q6H PRN 06/18/22 03/13/24 History [Maalox] Melatonin [Melatonin ER] 10 mg PO HS 06/18/22 03/13/24 History Metoprolol Succinate (ER) [Toprol 25 mg PO DAILY 06/18/22 03/13/24 History Xl] Midodrine HCl [ProAmatine] 10 mg PO DAILY PRN 06/18/22 03/13/24 History Multivitamins, Thera [Multivitamin 1 tab PO DAILY 06/18/22 03/13/24 History (formulary)] Oxybutynin Chloride [Oxybutynin 15 mg PO DAILY 06/18/22 03/13/24 History Chloride ER] Primidone [Mysoline] 50 mg PO HS 06/18/22 03/13/24 History Cholecalciferol [Vitamin D3 (25 50 mcg PO DAILY 11/19/23 03/13/24 History Mcg = 1000 Iu)] Docusate Sodium [Dok] 100 mg PO DAILY PRN 11/19/23 03/13/24 History Famotidine [Pepcid] 20 mg PO DAILY 11/19/23 03/13/24 History HYDROcodone/APAP 10-325MG [[place] 1 tab PO Q4HR PRN 11/19/23 03/13/24 History 10-325] Insulin Lispro [humaLOG Kwikpen] See Protocol SQ AC-TID 11/19/23 03/13/24 History Loratadine [Claritin] 10 mg PO DAILY PRN 11/19/23 03/13/24 History Magnesium Oxide [Mag-Ox] 400 mg PO BID 11/19/23 03/13/24 History Semaglutide [Ozempic] 1 mg SQ SA 11/19/23 03/13/24 History Suvorexant [Belsomra] 15 mg PO HS 11/19/23 03/13/24 History Venlafaxine HCl ER [Effexor Xr] 37.5 mg PO DAILY 11/19/23 03/13/24 History 0.9 % Sodium Chloride [Sodium 10 ml IV DAILY 03/13/24 03/13/24 History Chloride Flush] Ertapenem [INVanz] 1 gm IVPB Q24H 03/13/24 03/13/24 History Ondansetron [Zofran] 4 mg PO TID PRN 03/13/24 03/13/24 History levETIRAcetam [Keppra] 750 mg PO Q12HR 03/13/24 03/13/24 History Allergies Allergy/AdvReac Type Severity Reaction Status Date / Time shellfish derived [Shellfish] Allergy Unknown Verified 03/13/24 14:13 strawberry Allergy Unknown Verified 03/13/24 14:13 Physical Exam Vitals: Vital Signs Temp Pulse Resp BP Pulse Ox 03/14/24 07:39 97.4 F L 76 18 100/63 96 03/14/24 06:39 77 18 85/60 96 03/14/24 03:11 80 18 92/49 94 L 03/14/24 01:00 83/50 03/13/24 23:43 87/52 03/13/24 22:26 85/67 03/13/24 21:05 91 18 79/40 93 L 03/13/24 16:00 84 20 99/42 94 L 03/13/24 13:08 83 16 94/63 94 L 03/13/24 11:33 81 18 92/56 95 Results CBC & Chem 7: 03/13/24 10:02 03/13/24 10:02 Labs: Abnormal Lab Results - Last 24 Hours (Table) 03/13/24 03/13/24 03/13/24 Range/Units 10:02 10:02 10:02 WBC 13.6 H (3.8-10.6) k/uL Neutrophils # 11.1 H (1.3-7.7) k/uL Sodium 132 L (137-145) mmol/L Chloride 97 L (98-107) mmol/L Glucose 130 H (74-99) mg/dL POC Glucose (mg/dL) (70-110) mg/dL Calcium 7.9 L (8.4-10.2) mg/dL Albumin 3.1 L (3.5-5.0) g/dL Urine Blood Moderate H (Negative) Urine Nitrite Positive H (Negative) Ur Leukocyte Esterase Moderate H (Negative) Urine WBC 8 H (0-5) /hpf Ur Squamous Epith Cells 9 H (0-4) /hpf Amorphous Sediment Occasional H (None) /hpf Urine Bacteria Rare H (None) /hpf Urine Mucus Rare H (None) /hpf 03/13/24 Range/Units 21:00 WBC (3.8-10.6) k/uL Neutrophils # (1.3-7.7) k/uL Sodium (137-145) mmol/L Chloride (98-107) mmol/L Glucose (74-99) mg/dL POC Glucose (mg/dL) 139 H (70-110) mg/dL Calcium (8.4-10.2) mg/dL Albumin (3.5-5.0) g/dL Urine Blood (Negative) Urine Nitrite (Negative) Ur Leukocyte Esterase (Negative) Urine WBC (0-5) /hpf Ur Squamous Epith Cells (0-4) /hpf Amorphous Sediment (None) /hpf Urine Bacteria (None) /hpf Urine Mucus (None) /hpf Assessment and Plan Plan: 1patient presented hospital right lower quadrant abdominal pain did have low- grade fever also with elevated white count tenderness right lower quadrant area with evidence of appendicitis on the CT we will need to cover for the enteric gram-negative both aerobes and anaerobes to be the likely pathogen. 2await surgical evaluation and possible or for appendectomy and culture if any evidence of perforation 3Zosyn 3.375 g every 8 hours will provide adequate antibiotic coverage for underlying appendicitis. We will follow on clinical condition and cultures to further adjust medication if needed Thank you for this consultation we will follow the patient along with you Dictation was produced using [employer] dictation software. please excuse any grammatical, word or spelling errors. Time with Patient: Greater than 30
[2024-03-14] MEDS: HYDROmorphone 0.5 MG/0.5 ML SYRINGE IVP ONE ×4 (21:50→22:11)
[2024-03-14 21:58] LABS: Glucose,Whole Blood 91 mg/dL (70-110)
[2024-03-14] MEDS: INSULIN DETEMIR (LEVEMIR) 100 UNIT/ML SYR SQ SCH (23:26)
[2024-03-14] MEDS: HYDROmorphone 1 MG/ML 1 ML SYRINGE IVP PRN (23:46)
[2024-03-15] MEDS: LACTATED RINGERS 1,000 ML IV SCH (00:16)
[2024-03-15] MEDS: MAG HYDROX/AL HYDROX/SIMETH 30 ML CUP PO PRN (03:13)
[2024-03-15 07:09] LABS: ALT 24 U/L (4-34); AST 49 U/L (14-36); African American GFR (CKD) 77 (>60 ml/min/1.73 sqM); Albumin 2.3 g/dL (3.5-5.0); Alkaline Phosphatase 161 U/L (38-126); Anion Gap 1 mmol/L; Blood Urea Nitrogen 13 mg/dL (7-17); Calcium 6.9 mg/dL (8.4-10.2); Carbon Dioxide 29 mmol/L (22-30); Chloride 104 mmol/L (98-107); Glucose 130 mg/dL (74-99); Non-African American GFR(CKD) 67 (>60 ml/min/1.73 sqM); Potassium 3.8 mmol/L (3.5-5.1); Sodium 134 mmol/L (137-145); Total Bilirubin 0.6 mg/dL (0.2-1.3); Total Protein 5.1 g/dL (6.3-8.2)
[2024-03-15 07:22] LABS: Basophils % (A) 0 %; Eosinophils # (A) 0.2 k/uL (0-0.7); Eosinophils % (A) 2 %; HCT 37.9 % (34.0-46.0); HGB 11.7 gm/dL (11.4-16.0); Hypochromasia Slight; Lymphocytes # (A) 0.9 k/uL (1.0-4.8); Lymphocytes % (A) 7 %; MCH 30.4 pg (25.0-35.0); MCV 98.3 fL (80.0-100.0); Mean Platelet Volume 8.5; Monocytes # (A) 0.5 k/uL (0-1.0); Monocytes % (A) 4 %; Neutrophils # (A) 11.9 k/uL (1.3-7.7); Neutrophils % (A) 87 %; Platelet Count 219 k/uL (150-450); RBC 3.85 m/uL (3.80-5.40); RDW 12.8 % (11.5-15.5); WBC 13.8 k/uL (3.8-10.6)
[2024-03-15 07:44] LABS: Glucose,Whole Blood 127 mg/dL (70-110)
[2024-03-15] MEDS: HYDROcodone/APAP 5-325MG 1 EACH TAB PO PRN (08:01)
--- NOTE | 2024-03-15 09:44 | P.PN ---
Subjective Progress Note Date: 03/15/24 Reason for Consult (text): Preop cardiac clearance History of present illness: This is a 48-year-old female last with past medical history of atrial fibri llation on Eliquis and flecainide, diabetes mellitus type 2, gastroesophageal reflux disease, Guillain-Wall syndrome, chronic inflammatory demyelinating polyneuritis, chronic anemia, seizure disorder, history of kidney stones, frequent urinary tract infections and sepsis usually treated at [facility]. Patient has been seen by Dr. Lainey Tobin in the office with most recent visit on 07/14/2022. We have been asked to evaluate the patient for preop cardiac clearance. She is scheduled for left appendectomy on 03/14. Patient presented to the emergency center due to right lower quadrant abdominal pain and CT was concerning for acute appendicitis. Patient is scheduled for laparoscopic appendectomy on 03/14. Patient also has PICC line in place with IV antibiotics for urinary tract infection with Invanz prior to admission. She denies chest pain and shortness of breath. Her last dose of Eliquis was taken on 03/13. She states that she no longer follows with a canvas cutter. EKG sinus rhythm with early repolarization, no acute ST changes. CT of the abdomen pelvis. Inflammatory process in the right abdomen suggestive of dilated tubular structure. Findings worrisome for acute appendicitis. WBC 13.6, hemoglobin 12.7. Sodium 132, potassium 4.2. Creatinine 0.91. hCG not detected. Urinalysis abnormal. Home cardiac medications: Eliquis 5 mg twice daily-last dose 03/13, flecainide 50 mg twice daily, Toprol XL 25 mg daily, midodrine 10 mg daily as needed. 03/15 Yesterday, patient underwent open appendectomy. She is seen today on the observation unit. At this time, patient is refusing echocardiogram because she states she had 1 before and about a 1 year and a half ago and also because she thinks it will be too painful because her abdomen is painful. Echocardiogram will be canceled. Vital signs have been stable with blood pressure 105/66, heart rate 88, pulse ox 96% on 2 L nasal cannula. Repeat blood work reveals WBC 13.8, hemoglobin 9.7. Sodium 134, potassium 3.8, BUN 13 creatinine 1. Physical examination: Gen: This is a 48-year-old female in no acute distress VS: reviewed. HEENT: Head is atraumatic, normocephalic. Pupils equal, round. Sclerae is anicteric. LUNGS: Clear to auscultation. No wheezes or rhonchi. No intercostal retractions. HEART: Regular rate and rhythm. No murmur. EXTREMITIES: No pedal edema. No calf tenderness. NEUROLOGICAL: Patient is awake, alert and oriented x3. Assessment: Acute appendicitis Paroxysmal atrial fibrillation Urinary tract infection on IV Invanz Chronic inflammatory demyelinating polyneuritis Diabetes mellitus Gastroesophageal reflux disease Quadriplegia Seizure disorder Plan: Eliquis may be resumed once cleared by general surgery Continue flecainide and Toprol XL Cancel echocardiogram per patient's request Cardiology will sign off this case and follow on an as-needed basis. Please reconsult for any new concerns. Patient may follow-up in the office in one to 2 weeks. Nurse practitioner note has been reviewed, I agree with documented findings and plan of care. Patient was seen and examined. Objective - Vital Signs Vital signs: Vital Signs Temp 98.8 F 03/15/24 07:00 Pulse 88 03/15/24 07:00 Resp 18 03/14/24 23:09 BP 105/66 03/15/24 07:00 Pulse Ox 97 03/15/24 07:55 FiO2 Intake & Output 03/14/24 03/15/24 03/15/24 18:59 06:59 18:59 Intake Total 800 Output Total 2360 Balance -1560 Weight 121.109 kg Intake: IV 800 Output: Drainage 310 Abdomen 310 Urine 2000 Estimated Blood Loss 50 Other: Voiding Method Indwelling Catheter - Labs CBC & Chem 7: 03/15/24 06:31 03/15/24 06:31 Labs: Abnormal Lab Results - Last 24 Hours (Table) 03/14/24 03/15/24 03/15/24 Range/Units 11:04 06:31 06:31 WBC 13.8 H (3.8-10.6) k/uL Neutrophils # 11.9 H (1.3-7.7) k/uL Lymphocytes # 0.9 L (1.0-4.8) k/uL Sodium 134 L (137-145) mmol/L Glucose 130 H (74-99) mg/dL POC Glucose (mg/dL) 147 H (70-110) mg/dL Calcium 6.9 L (8.4-10.2) mg/dL AST 49 H (14-36) U/L Alkaline Phosphatase 161 H (38-126) U/L Total Protein 5.1 L (6.3-8.2) g/dL Albumin 2.3 L (3.5-5.0) g/dL 03/15/24 Range/Units 07:42 WBC (3.8-10.6) k/uL Neutrophils # (1.3-7.7) k/uL Lymphocytes # (1.0-4.8) k/uL Sodium (137-145) mmol/L Glucose (74-99) mg/dL POC Glucose (mg/dL) 127 H (70-110) mg/dL Calcium (8.4-10.2) mg/dL AST (14-36) U/L Alkaline Phosphatase (38-126) U/L Total Protein (6.3-8.2) g/dL Albumin (3.5-5.0) g/dL Microbiology - Last 24 Hours (Table) 03/13/24 14:28 Blood Culture - Preliminary Blood 03/13/24 14:45 Blood Culture - Preliminary Blood
--- NOTE | 2024-03-15 11:40 | P.PN ---
Subjective Progress Note Date: 03/15/24 CHIEF COMPLAINT: acute ruptured appendicitis HISTORY OF PRESENT ILLNESS: Postop day #1 status post diagnostic laparoscopy with open appendectomy. Patient does complain of abdominal pain. Denies any nausea or vomiting. She is having output through her ostomy. Afebrile. JANELLE drain with 310 mL serosanguineous output. WBC about the same at 13.8 Hgb 11.7 PHYSICAL EXAM: VITAL SIGNS: Reviewed. GENERAL: Well-developed in no acute distress. ABDOMEN: Soft. Obese. Nondistended. Tender at incision site. Prevena wound VAC intact. ostomy bag on left with stool NEUROLOGIC: Alert and oriented. Cranial nerves II through XII grossly intact. ASSESSMENT: 1. Acute ruptured appendicitis PLAN: -Start clear liquid diet -Continue pain management. Dilaudid adjusted to every 3 hours. And resumed the [place] tens every 4 hours PRN -Continue antibiotics -Continue IV fluids -Continue to hold Eliquis -DVT prophylaxis subcu heparin and GI prophylaxis Protonix Physician Prepared [employer] Associate note has been reviewed by physician. Signing provider agrees with the documented findings, assessment, and plan of care. Objective - Vital Signs Vital signs: Vital Signs Temp 98.8 F 03/15/24 07:00 Pulse 88 03/15/24 07:00 Resp 18 03/14/24 23:09 BP 105/66 03/15/24 07:00 Pulse Ox 97 03/15/24 07:55 FiO2 Intake & Output 03/14/24 03/15/24 03/15/24 18:59 06:59 18:59 Intake Total 800 Output Total 2360 Balance -1560 Weight 121.109 kg Intake: IV 800 Output: Drainage 310 Abdomen 310 Urine 2000 Estimated Blood Loss 50 Other: Voiding Method Indwelling Catheter Indwelling Catheter - Labs CBC & Chem 7: 03/15/24 06:31 03/15/24 06:31 Labs: Abnormal Lab Results - Last 24 Hours (Table) 03/15/24 03/15/24 03/15/24 Range/Units 06:31 06:31 06:31 WBC 13.8 H (3.8-10.6) k/uL Neutrophils # 11.9 H (1.3-7.7) k/uL Lymphocytes # 0.9 L (1.0-4.8) k/uL Sodium 134 L (137-145) mmol/L Glucose 130 H (74-99) mg/dL POC Glucose (mg/dL) (70-110) mg/dL Hemoglobin A1c 7.3 H (<=6.0) % Calcium 6.9 L (8.4-10.2) mg/dL AST 49 H (14-36) U/L Alkaline Phosphatase 161 H (38-126) U/L Total Protein 5.1 L (6.3-8.2) g/dL Albumin 2.3 L (3.5-5.0) g/dL 03/15/24 Range/Units 07:42 WBC (3.8-10.6) k/uL Neutrophils # (1.3-7.7) k/uL Lymphocytes # (1.0-4.8) k/uL Sodium (137-145) mmol/L Glucose (74-99) mg/dL POC Glucose (mg/dL) 127 H (70-110) mg/dL Hemoglobin A1c (<=6.0) % Calcium (8.4-10.2) mg/dL AST (14-36) U/L Alkaline Phosphatase (38-126) U/L Total Protein (6.3-8.2) g/dL Albumin (3.5-5.0) g/dL Microbiology - Last 24 Hours (Table) 03/13/24 10:02 Urine Culture - Preliminary Urine,Clean Catch Gram Neg Bacilli 03/13/24 14:28 Blood Culture - Preliminary Blood 03/13/24 14:45 Blood Culture - Preliminary Blood
[2024-03-15 11:52] LABS: Glucose,Whole Blood 117 mg/dL (70-110)
[2024-03-15] MEDS: HEPARIN SODIUM,PORCINE 5,000 UNIT/ML 1 ML VIAL SQ SCH (12:03)
--- NOTE | 2024-03-15 12:28 | P.PN ---
Subjective Progress Note Date: 03/15/24 * 89-ip[age]b-year-old patient with multiple medical comorbidities including renal stones with recurrent urinary tract infection, history of seizure, s/p colostomy, history of Allegra Wall, atrial fibrillation, diabetes mellitus type 2, gastroesophageal reflux disease, morbid obesity presents to the [facility] ency department with complaints of acute onset of right lower quadrant abdominal discomfort. Patient symptoms onset was 24 hours prior to presentation. Patient did complain of associated nausea, vomiting, patient checked her temperature at home which was noted to be 99, patient states she took [place] with minimal relief. Patient does have an ostomy in place and no changes in her bowel habits were noted. Patient has been on outpatient IV antibiotic and has a PICC line in place already. * Workup initiated in ER included CBC which showed WBC count of 13.6, hemoglobin of 12.7 platelet count of 250, serum chemistry showed sodium 132 potassium 4.2 chloride 97 BUN 15 creatinine 0.91 lipase and amylase within normal limits urinalysis was obtained which showed moderate amount of blood, urine nitrate, moderate leukocyte esterase, * CT abdomen and pelvis was obtained which raised suspicion for acute appendicitis, see CT report for details multiple chronic changes noted * Patient was resuscitated with IV fluid received 2 L of fluid bolus and started on maintenance hydration, patient does take Eliquis at home which is placed on hold in anticipation of surgical intervention * Medicine team will continue to follow along, patient admitted under the general surgery team as primary * 03/15/24: Patient seen and evaluated at bedside, patient is s/p diagnostic laparoscopy, open appendectomy for acute ruptured appendicitis, blood work reviewed WBC 13.8 hemoglobin 11, platelet count of 219, serum chemistry sodium 134, albumin of 2.3. Patient refused abdominal exam stating the surgeons has already examined her REVIEW OF SYSTEMS: Nausea, vomiting, abdominal pain noted on admission improved CONSTITUTIONAL: No fever, no malaise, no fatigue. HEENT: No recent visual problems or hearing problems. Denied any sore throat. CARDIOVASCULAR: No chest pain, orthopnea, PND, no palpitations, no syncope. PULMONARY: No shortness of breath, no cough, no hemoptysis. GASTROINTESTINAL: Nausea, vomiting, abdominal pain noted on admission IMPROVED NEUROLOGICAL: No headaches, no weakness, no numbness. HEMATOLOGICAL: Denies any bleeding or petechiae. GENITOURINARY: Denies any burning micturition, frequency, or urgency. MUSCULOSKELETAL/RHEUMATOLOGICAL: Denies any joint pain, swelling, or any muscle pain. ENDOCRINE: Denies any polyuria or polydipsia. PHYSICAL EXAMINATION: GENERAL: The patient is alert and oriented x3, morbidly obese, ill appearance HEENT: Pupils are round and equally reacting to light. EOMI. CARDIOVASCULAR: S1 and S2 present. No murmurs, rubs, or gallops. PULMONARY: Chest is clear to auscultation, no wheezing or crackles. ABDOMEN: , Refused abdominal exam, MUSCULOSKELETAL: No joint swelling or deformity. EXTREMITIES: No cyanosis, clubbing, or pedal edema. NEUROLOGICAL: Gross neurological examination did not reveal any focal deficits. SKIN: No rashes. Assessment and plan * Acute ruptured appendicitis * Chronic atrial fibrillation * Recurrent urinary tract infection on outpatient IV antibiotics * Diabetes mellitus type 2 * History of seizure disorder * Morbid obesity * Chronic inflammatory demyelinating polyneuritis * History of bowel resection s/p colostomy * In regards to abdominal pain, CT abdomen pelvis obtained, patient admitted und er surgical service, remains on liquid diet continue IV antibiotic, pain control, antiemetics, s/p open appendectomy * In regards to atrial fibrillation continue patient on telemonitoring, continue flecainide, metoprolol, Eliquis remains on hold postsurgical intervention till cleared by surgery * In regards to urinary tract infection continue patient on IV zosyn , infectious disease consulted * In regards to diabetes mellitus, Accu-Cheks ACHS, while n.p.o. monitor for hypoglycemia, continue correctional insulin and Lantus * In regards to seizure disorder continue Keppra * Post surgery Eliquis remains on hold, SCDs for DVT prophylax Objective - Vital Signs Vital signs: Vital Signs Temp 98.8 F 03/15/24 07:00 Pulse 88 03/15/24 07:00 Resp 18 03/14/24 23:09 BP 105/66 03/15/24 07:00 Pulse Ox 97 03/15/24 07:55 FiO2 Intake & Output 03/14/24 03/15/24 03/15/24 18:59 06:59 18:59 Intake Total 800 Output Total 2360 Balance -1560 Weight 121.109 kg Intake: IV 800 Output: Drainage 310 Abdomen 310 Urine 2000 Estimated Blood Loss 50 Other: Voiding Method Indwelling Catheter - Labs CBC & Chem 7: 03/15/24 06:31 04/30/24 06:31 Labs: Abnormal Lab Results - Last 24 Hours (Table) 03/14/24 03/15/24 03/15/24 Range/Units 11:04 06:31 06:31 WBC 13.8 H (3.8-10.6) k/uL Neutrophils # 11.9 H (1.3-7.7) k/uL Lymphocytes # 0.9 L (1.0-4.8) k/uL Sodium 134 L (137-145) mmol/L Glucose 130 H (74-99) mg/dL POC Glucose (mg/dL) 147 H (70-110) mg/dL Calcium 6.9 L (8.4-10.2) mg/dL AST 49 H (14-36) U/L Alkaline Phosphatase 161 H (38-126) U/L Total Protein 5.1 L (6.3-8.2) g/dL Albumin 2.3 L (3.5-5.0) g/dL 03/15/24 Range/Units 07:42 WBC (3.8-10.6) k/uL Neutrophils # (1.3-7.7) k/uL Lymphocytes # (1.0-4.8) k/uL Sodium (137-145) mmol/L Glucose (74-99) mg/dL POC Glucose (mg/dL) 127 H (70-110) mg/dL Calcium (8.4-10.2) mg/dL AST (14-36) U/L Alkaline Phosphatase (38-126) U/L Total Protein (6.3-8.2) g/dL Albumin (3.5-5.0) g/dL Microbiology - Last 24 Hours (Table) 03/13/24 14:28 Blood Culture - Preliminary Blood 03/13/24 14:45 Blood Culture - Preliminary Blood
[2024-03-15] MEDS: HYDROmorphone 1 MG/ML 1 ML SYRINGE IVP PRN (12:45)
[2024-03-15] MEDS: MEROPENEM 1 GM in SODIUM CHLORIDE 0.9% 100 ML IVPB SCH (15:05)
[2024-03-15 16:36] LABS: Glucose,Whole Blood 111 mg/dL (70-110)
[2024-03-15] MEDS: HYDROcodone/APAP 10-325MG 1 EACH TAB PO PRN (17:12)
[2024-03-15 19:59] LABS: Glucose,Whole Blood 115 mg/dL (70-110)
[2024-03-16 06:19] LABS: Glucose,Whole Blood 136 mg/dL (70-110)
[2024-03-16 08:21] LABS: MCH 30.2 pg (25.0-35.0); MCHC 30.9 g/dL (31.0-37.0); MCV 97.7 fL (80.0-100.0); Mean Platelet Volume 8.3; Platelet Count 238 k/uL (150-450); RBC 3.99 m/uL (3.80-5.40); RDW 12.9 % (11.5-15.5); WBC 12.2 k/uL (3.8-10.6)
[2024-03-16 09:04] LABS: African American GFR (CKD) 85 (>60 ml/min/1.73 sqM); Anion Gap 5 mmol/L; Blood Urea Nitrogen 9 mg/dL (7-17); Calcium 7.6 mg/dL (8.4-10.2); Carbon Dioxide 23 mmol/L (22-30); Chloride 105 mmol/L (98-107); Glucose 140 mg/dL (74-99); Non-African American GFR(CKD) 74 (>60 ml/min/1.73 sqM); Potassium 4.2 mmol/L (3.5-5.1); Sodium 133 mmol/L (137-145)
--- NOTE | 2024-03-16 09:50 | P.PN ---
Subjective * 64-tzhr-[age]h-year-old patient with multiple medical comorbidities including renal stones with recurrent urinary tract infection, history of seizure, s/p colostomy, history of Allegra Wall, atrial fibrillation, diabetes mellitus type 2, gastroesophageal reflux disease, morbid obesity presents to the emergency department with complaints of acute onset of right lower quadrant abdominal discomfort. Patient symptoms onset was 24 hours prior to pr esentation. Patient did complain of associated nausea, vomiting, patient checked her temperature at home which was noted to be 99, patient states she took [place] with minimal relief. Patient does have an ostomy in place and no changes in her bowel habits were noted. Patient has been on outpatient IV antibiotic and has a PICC line in place already. * Workup initiated in ER included CBC which showed WBC count of 13.6, hemoglobin of 12.7 platelet count of 250, serum chemistry showed sodium 132 potassium 4.2 chloride 97 BUN 15 creatinine 0.91 lipase and amylase within normal limits urinalysis was obtained which showed moderate amount of blood, urine nitrate, moderate leukocyte esterase, * CT abdomen and pelvis was obtained which raised suspicion for acute appendicitis, see CT report for details multiple chronic changes noted * Patient was resuscitated with IV fluid received 2 L of fluid bolus and started on maintenance hydration, patient does take Eliquis at home which is placed on hold in anticipation of surgical intervention * Medicine team will continue to follow along, patient admitted under the general surgery team as primary * 03/15/24: Patient seen and evaluated at bedside, patient is s/p diagnostic laparoscopy, open appendectomy for acute ruptured appendicitis, blood work reviewed WBC 13.8 hemoglobin 11, platelet count of 219, serum chemistry sodium 134, albumin of 2.3. Patient refused abdominal exam stating the surgeons has already examined her 03/16/2024 Patient still complains from severe abdominal pain after the surgery, drain in place with little serosanguineous discharge. Patient was less than 100 the abdomen and because of pain She is unable to tolerate liquid diet today She remains on normal saline 75 mL/h She remains on meropenem antibiotic Calderon catheter in place Eliquis remains on hold and currently on subcutaneous heparin Objective - Vital Signs Vital signs: Vital Signs Temp 97.8 F 03/16/24 02:00 Pulse 90 03/16/24 02:00 Resp 16 03/16/24 02:00 BP 108/68 03/16/24 02:00 Pulse Ox 97 03/16/24 02:00 FiO2 Intake & Output 03/15/24 03/16/24 03/16/24 18:59 06:59 18:59 Intake Total 1350.0 Output Total 660 1175 40 Balance -660 175.0 -40 Intake: Intake, IV Titration 950.0 Amount Lactated Ringers 1,000 ml 687.5 @ 125 mls/hr IV .Q8H EVA Rx#:[id number] Sodium Chloride 0.9% 1, 262.5 000 ml @ 75 mls/hr IV . [id number] EVA Rx#:[id number] Oral 400 Output: Drainage 160 75 40 Abdomen 160 75 40 Urine 500 1100 Other: Voiding Method Indwelling Catheter Indwelling Catheter - Exam GENERAL: The patient is alert and oriented x3, not in any acute distress. Well developed, well nourished. HEENT: Pupils are round and equally reacting to light. EOMI. No scleral icterus. No conjunctival pallor. Normocephalic, atraumatic. No pharyngeal erythema. No thyromegaly. CARDIOVASCULAR: S1 and S2 present. No murmurs, rubs, or gallops. PULMONARY: Chest is clear to auscultation, no wheezing , no crackles. -ABDOMEN: Soft, right lower quadrant tenderness, drain in place with little serosanguineous discharge, nondistended, normoactive bowel sounds. No palpable organomegaly. Calderon catheter in place MUSCULOSKELETAL: No joint swelling or deformity. EXTREMITIES: No cyanosis, clubbing, or pedal edema. NEUROLOGICAL: Gross neurological examination did not reveal any focal deficits. SKIN: No rashes. no petechiae. - Labs CBC & Chem 7: 03/16/24 07:59 03/16/24 07:59 Labs: Abnormal Lab Results - Last 24 Hours (Table) 03/15/24 03/15/24 03/15/24 Range/Units 06:31 11:50 16:33 WBC (3.8-10.6) k/uL MCHC (31.0-37.0) g/dL Sodium (137-145) mmol/L Glucose (74-99) mg/dL POC Glucose (mg/dL) 117 H 111 H (70-110) mg/dL Hemoglobin A1c 7.3 H (<=6.0) % Calcium (8.4-10.2) mg/dL 03/15/24 03/16/24 03/16/24 Range/Units 19:58 06:18 07:59 WBC 12.2 H (3.8-10.6) k/uL MCHC 30.9 L (31.0-37.0) g/dL Sodium (137-145) mmol/L Glucose (74-99) mg/dL POC Glucose (mg/dL) 115 H 136 H (70-110) mg/dL Hemoglobin A1c (<=6.0) % Calcium (8.4-10.2) mg/dL 03/16/24 Range/Units 07:59 WBC (3.8-10.6) k/uL MCHC (31.0-37.0) g/dL Sodium 133 L (137-145) mmol/L Glucose 140 H (74-99) mg/dL POC Glucose (mg/dL) (70-110) mg/dL Hemoglobin A1c (<=6.0) % Calcium 7.6 L (8.4-10.2) mg/dL Microbiology - Last 24 Hours (Table) 03/13/24 14:28 Blood Culture - Preliminary Blood 03/13/24 14:45 Blood Culture - Preliminary Blood 03/13/24 10:02 Urine Culture - Preliminary Urine,Clean Catch Gram Neg Bacilli Assessment and Plan Assessment: Acute ruptured appendicitis, s/p open appendectomy Chronic atrial fibrillation Recurrent urinary tract infection on outpatient IV antibiotics, s/p Calderon catheter Diabetes mellitus type 2 History of seizure disorder Morbid obesity Chronic inflammatory demyelinating polyneuritis History of bowel resection s/p colostomy Plan: Continue with antibiotic, currently on meropenem Continue with IV hydration, currently on normal saline 75 mL/h Currently patient Eliquis on hold, resume once cleared by general surgery team. Currently covered with subcutaneous heparin 5000 units twice daily Bowel rest and advance diet as per surgery team Pain management Surgery and cardiology team on the case Labs and medication were reviewed.. Continue same treatment. Continue with symptomatic treatment. Resume home medication. Monitor labs and vitals. DVT and GI prophylaxis. Further recommendations as per clinical course of the patient DVT prophylaxis: Subcutaneous heparin GI Prophylaxis: Pepcid and ppi PT/OT: Pending Prognosis is guarded
[2024-03-16 11:57] LABS: Glucose,Whole Blood 172 mg/dL (70-110)
[2024-03-16] MEDS: PROCHLORPERAZINE INJ 10 MG/2 ML VIAL IVP PRN (12:58)
--- NOTE | 2024-03-16 14:01 | P.PN ---
Subjective Progress Note Date: 03/16/24 CHIEF COMPLAINT: acute ruptured appendicitis HISTORY OF PRESENT ILLNESS: Postop day #2 status post diagnostic laparoscopy with open appendectomy. Patient complains of abdominal pain. Patient complains of nausea and vomiting. Her ostomy is having stool through her ostomy. JANELLE drain with 160 mL output yesterday and 75 mL output through the night and 40 mL output this morning. Afebrile. WBC 13 down to 12.2 PHYSICAL EXAM: VITAL SIGNS: Reviewed. GENERAL: Well-developed in no acute distress. ABDOMEN: Soft. Obese. Nondistended. Tender at incision site. Prevena wound VAC intact. ostomy bag on left with stool. JANELLE drain serosanguineous output NEUROLOGIC: Alert and oriented. Cranial nerves II through XII grossly intact. ASSESSMENT: 1. Acute ruptured appendicitis PLAN: -Continue clear liquid diet -Continue pain management -Continue antibiotics -Continue IV fluids -Continue to hold Eliquis until tomorrow -Compazine added for nausea and vomiting -IV morphine for 5 mg every 2 hours as needed for breakthrough pain added per Dr. Garcia recommendations -Incentive spirometer ordered -Dr. Garcia did call patient's sister, power of driver medic while at bedside. All questions answered -DVT prophylaxis subcu heparin and GI prophylaxis Protonix Physician Tip Stretcher note has been reviewed by physician. Signing provider agrees with the documented findings, assessment, and plan of care. Objective - Vital Signs Vital signs: Vital Signs Temp 97.6 F 03/16/24 10:38 Pulse 82 03/16/24 10:38 Resp 16 03/16/24 10:38 BP 119/77 03/16/24 10:38 Pulse Ox 97 03/16/24 10:38 FiO2 Intake & Output 03/15/24 03/16/24 03/16/24 18:59 06:59 18:59 Intake Total 1350.0 Output Total 660 1175 75 Balance -660 175.0 -75 Intake: Intake, IV Titration 950.0 Amount Lactated Ringers 1,000 ml 687.5 @ 125 mls/hr IV .Q8H EVA Rx#:[id number] Sodium Chloride 0.9% 1, 262.5 000 ml @ 75 mls/hr IV . [id number] EVA Rx#:[id number] Oral 400 Output: Drainage 160 75 75 Abdomen 160 75 75 Urine 500 1100 Other: Voiding Method Indwelling Catheter Indwelling Catheter Indwelling Catheter - Labs CBC & Chem 7: 03/16/24 07:59 03/16/24 07:59 Labs: Abnormal Lab Results - Last 24 Hours (Table) 03/15/24 03/15/24 03/15/24 Range/Units 06:31 11:50 16:33 WBC (3.8-10.6) k/uL MCHC (31.0-37.0) g/dL Sodium (137-145) mmol/L Glucose (74-99) mg/dL POC Glucose (mg/dL) 117 H 111 H (70-110) mg/dL Hemoglobin A1c 7.3 H (<=6.0) % Calcium (8.4-10.2) mg/dL 03/15/24 03/16/24 03/16/24 Range/Units 19:58 06:18 07:59 WBC 12.2 H (3.8-10.6) k/uL MCHC 30.9 L (31.0-37.0) g/dL Sodium (137-145) mmol/L Glucose (74-99) mg/dL POC Glucose (mg/dL) 115 H 136 H (70-110) mg/dL Hemoglobin A1c (<=6.0) % Calcium (8.4-10.2) mg/dL 03/16/24 Range/Units 07:59 WBC (3.8-10.6) k/uL MCHC (31.0-37.0) g/dL Sodium 133 L (137-145) mmol/L Glucose 140 H (74-99) mg/dL POC Glucose (mg/dL) (70-110) mg/dL Hemoglobin A1c (<=6.0) % Calcium 7.6 L (8.4-10.2) mg/dL Microbiology - Last 24 Hours (Table) 03/13/24 14:28 Blood Culture - Preliminary Blood 03/13/24 14:45 Blood Culture - Preliminary Blood 03/13/24 10:02 Urine Culture - Preliminary Urine,Clean Catch Gram Neg Bacilli
[2024-03-16] MEDS: MORPHINE SULFATE 4 MG/ML SYRINGE IVP PRN (16:11)
[2024-03-16 17:22] LABS: Glucose,Whole Blood 232 mg/dL (70-110)
[2024-03-16 17:39] VITALS: TEMP 98.8
[2024-03-16 20:50] LABS: Glucose,Whole Blood 171 mg/dL (70-110)
[2024-03-16 21:57] VITALS: BP 124/73; PULSE 81; RESP 16
[2024-03-19] MEDS ORDERED: NON FORMULARY DRUG (Semaglutide [Ozempic] 1 MG/0.75 ML Each) SQ SCH (09:00)
== END 2024-03-16 22:25 | disposition short-term general hospital (02) | DRG 397 ==
LOC: EC 09:15 → 6NMEDSUR 15:36 → 4SSUR 15:59 → 1SOBS 03-14 15:46 → OBSVTOIN 03-15 08:15 → 4SSUR 03-16 16:05
PROVIDERS: ADMIT Surgery; ATTEND Surgery
PROC: 0DTJ0ZZ Resection of Appendix, Open Approach (ICD-10-PCS; principal; 2024-03-14 14:45)
PROC: 0WJG4ZZ Inspection of Peritoneal Cavity, Percutaneous Endoscopic Approach (ICD-10-PCS; principal; 2024-03-14 14:45)
DX: K35.32 Acute appendicitis with perforation, localized peritonitis, and gangrene, without abscess (principal); G82.50 Quadriplegia, unspecified; G61.81 Chronic inflammatory demyelinating polyneuritis; I48.20 Chronic atrial fibrillation, unspecified; N39.0 Urinary tract infection, site not specified; Z43.3 Encounter for attention to colostomy; E11.9 Type 2 diabetes mellitus without complications; G65.0 Sequelae of Guillain-Barre syndrome; I95.9 Hypotension, unspecified; G40.909 Epilepsy, unspecified, not intractable, without status epilepticus; E66.01 Morbid (severe) obesity due to excess calories; Z68.35 Body mass index [BMI] 35.0-35.9, adult; Z79.4 Long term (current) use of insulin; K66.0 Peritoneal adhesions (postprocedural) (postinfection); K21.9 Gastro-esophageal reflux disease without esophagitis; Z79.01 Long term (current) use of anticoagulants; Z79.85 Long-term (current) use of injectable non-insulin antidiabetic drugs; Z79.899 Other long term (current) drug therapy; Z87.440 Personal history of urinary (tract) infections; Z86.19 Personal history of other infectious and parasitic diseases
CPT/HCPCS: 36415; 74177; 80048; 80053; 81001; 82150; 83036; 83605; 83690; 84703; 85025; 85027; 87040; 87077; 87086; 87186; 88304; 93005; 94760; 96361; 96365; 96366; 96367; 96375; 96376; 99285

== ENCOUNTER 2024-04-01 16:03 | Inpatient (IN) | payer MEDICARE, OTHER ==
--- NOTE | 2024-04-01 17:03 | ED ---
Recheck HPI - General Chief Complaint: Recheck/Abnormal Lab/Rx Stated Complaint: ABD WOUND Time Seen by Provider: 04/01/24 16:24 Source: patient, EMS, RN notes reviewed, old records reviewed Mode of arrival: EMS Limitations: no limitations - History of Present Illness Initial Comments: This is a 48-year-old female who is a mildly poor historian coming in for postoperative complication. Concern for postoperative pelvic infection seroma versus abscess. Patient was transferred to the ER for evaluation and outpatient testing yesterday patient states she was sent in for evaluation today by Dr. Radha ALMARAZ Complaint: other (Recheck postoperative) -: days(s) Returns Today for: persistent/worsening pain related to initial visit Symptoms Since Prior Visit: no new symptoms Context: planned re-check Associated Symptoms: none - Related Data Home Medications Medication Instructions Recorded Confirmed Acetaminophen Tab [Tylenol] 650 mg PO Q6H PRN 06/18/22 04/01/24 Apixaban [Eliquis] 5 mg PO BID 06/18/22 04/01/24 Baclofen 5 mg PO BID 06/18/22 04/01/24 Multivitamins, Thera [Multivitamin 1 tab PO DAILY 06/18/22 04/01/24 (formulary)] Oxybutynin Chloride [oxyBUTYnin 15 mg PO DAILY 06/18/22 04/01/24 chloride ER] Cholecalciferol [Vitamin D3 (25 25 mcg PO DAILY 11/19/23 04/01/24 Mcg = 1000 Iu)] Docusate Sodium [Dok] 100 mg PO DAILY PRN 11/19/23 04/01/24 Famotidine [Pepcid] 20 mg PO DAILY 11/19/23 04/01/24 Insulin Lispro [humaLOG Kwikpen] See Protocol SQ ACHS 11/19/23 04/01/24 Magnesium Oxide [Mag-Ox] 400 mg PO BID 11/19/23 04/01/24 Semaglutide [Ozempic] 0.5 mg SQ SA 11/19/23 04/01/24 Suvorexant [Belsomra] 15 mg PO HS 11/19/23 04/01/24 Venlafaxine HCl ER [Effexor XR] 37.5 mg PO DAILY 11/19/23 04/01/24 Ondansetron [Zofran] 4 mg PO Q8H PRN 03/13/24 04/01/24 levETIRAcetam [Keppra] 750 mg PO BID 03/13/24 04/01/24 Ascorbic Acid [Vitamin C] 500 mg PO BID 04/01/24 04/01/24 Cranberry Fruit [Cranberry] 465 mg PO BID 04/01/24 04/01/24 Ergocalciferol (Vitamin D2) 1,250 mcg PO WE 04/01/24 04/01/24 [Drisdol (50,000 Iu)] Ferrous Sulfate [Iron (65 MG 325 mg PO BID 04/01/24 04/01/24 Elemental)] Flecainide Acetate [Tambocor] 50 mg PO BID 04/01/24 04/01/24 Folic Acid 1 mg PO DAILY 04/01/24 04/01/24 Insulin Glargine-Yfgn [Semglee 15 unit SQ BID 04/01/24 04/01/24 (Yfgn) Pen] Menthol-Zinc Oxide Oint 1 applic TOPICAL DAILY PRN 04/01/24 04/01/24 [Calmoseptine Ointment] Metoprolol Succinate (ER) [Toprol 12.5 mg PO DAILY 04/01/24 04/01/24 XL] Sennosides [Senokot] 17.2 mg PO BID PRN 04/01/24 04/01/24 Previous Rx's Medication Instructions Recorded Gabapentin [Neurontin] 300 mg PO TID@0600,1400,2200 #6 cap 04/08/24 Vancomycin 2,000 mg IVPB Q12H 14 Days #28 each 04/08/24 oxyCODONE HCL [oxyCODONE HCL (IR)] 10 mg PO Q4H PRN #4 tab 04/08/24 Allergies Allergy/AdvReac Type Severity Reaction Status Date / Time shellfish derived [Shellfish] Allergy Unknown Verified 04/01/24 17:53 strawberry Allergy Unknown Verified 04/01/24 17:53 Review of Systems ROS Statement: Those systems with pertinent positive or pertinent negative responses have been documented in the HPI. ROS Other: All systems not noted in ROS Statement are negative. Past Medical History Past Medical History: Atrial Fibrillation, Diabetes Mellitus, GERD/Reflux, Seizure Disorder Additional Past Medical History / Comment(s): admitted to [facility] May 2022 for sepsis/uti,acute renal failure. 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 uses a beata lift,goff catheter,colostomy,chronic inflammatory demyelinating polyneuritis,anemia,date of last seizure unk History of Any Multi-Drug Resistant Organisms: ESBL Date of last positivie culture/infection: 11/17/23 ESBL E.coli MDRO Source:: Urine Additional Past Surgical History / Comment(s): Urethral stents x 2 Smoking Status: Never smoker Past Alcohol Use History: None Reported Past Drug Use History: None Reported - Past Family History Father History Unknown: Yes General Exam Limitations: no limitations General appearance: alert, in no apparent distress, obese Head exam: Present: atraumatic, normocephalic, normal inspection Eye exam: Present: normal appearance, PERRL, EOMI. Absent: scleral icterus, conjunctival injection, periorbital swelling ENT exam: Present: normal exam, mucous membranes moist Neck exam: Present: normal inspection. Absent: tenderness, meningismus, lymphadenopathy Respiratory exam: Present: normal lung sounds bilaterally. Absent: respiratory distress, wheezes, rales, rhonchi, stridor Cardiovascular Exam: Present: regular rate, normal rhythm, normal heart sounds. Absent: systolic murmur, diastolic murmur, rubs, gallop, clicks GI/Abdominal exam: Present: soft, normal bowel sounds. Absent: distended, tenderness, guarding, rebound, rigid Extremities exam: Present: normal inspection, full ROM, normal capillary refill. Absent: tenderness, pedal edema, joint swelling, calf tenderness Back exam: Present: normal inspection Neurological exam: Present: alert, oriented X3, CN II-XII intact Psychiatric exam: Present: normal affect, normal mood Skin exam: Present: warm, dry, intact, normal color. Absent: rash Course Vital Signs 04/01/24 04/01/24 04/01/24 16:15 18:58 19:27 Temperature 97.8 F Pulse Rate 74 72 Respiratory 16 16 18 Rate Blood Pressure 106/58 106/58 119/73 O2 Sat by Pulse 94 L 96 95 Oximetry 04/01/24 04/01/24 20:00 21:31 Temperature 98 F Pulse Rate 71 78 Respiratory 18 18 Rate Blood Pressure 99/60 121/69 O2 Sat by Pulse 95 98 Oximetry - Reevaluation(s) Reevaluation #1: 04/01/24 21:06 Medical records reviewed Reevaluation #2: 04/01/24 21:06 Patient symptoms unchanged Reevaluation #3: 04/01/24 21:06 Patient informed of results and questions answered Reevaluation #4: Was pt. sent in by a medical professional or institution (, [facility], [employer], urgent care, hospital, or detention...) When possible be specific @ -no Did you speak to anyone other than the patient for history (EMS, parent, family, police, friend...)? What history was obtained from this source @ -no Did you review nursing and triage notes (agree or disagree)? Why? @ -agree Are old charts reviewed (outside hosp., previous admission, EMS record, old EKG, old radiological studies, urgent care reports/EKG's, detention records)? Report findings @ -yes Differential Diagnosis (chest pain, altered mental status, abdominal pain women, abdominal pain men, vaginal bleeding, weakness, fever, dyspnea, syncope, head ache, dizziness, GI bleed, back pain, seizure, CVA, palpatations, mental health, musculoskeletal)? @ -prior EKG interpreted by me (3pts min.). @ -no X-rays interpreted by me (1pt min.). @ -no CT interpreted by me (1pt min.). @ -Yes positive for seroma U/S interpreted by me (1pt. min.). @ -no What testing was considered but not performed or refused? (CT, X-rays, U/S, labs)? Why? @ -none What meds were considered but not given or refused? Why? @ -none Did you discuss the management of the patient with other professionals (professionals i.e. [facility] Dupont, [employer]ER, lab, RT, psych nurse, psych social worker, hot metal car operator, teacher, commercial credit officer, outsole caser)? Give summary @ -no Was smoking cessation discussed for >3mins.? @ -no Was critical care preformed (if so, how long)? @ -no Were there social determinants of health that impacted care today? How? (Homelessness, low income, unemployed, alcoholism, drug addiction, transportation, low edu. Level, literacy, decrease access to med. care, custodial, rehab)? @ -none Was there de-escalation of care discussed even if they declined (Discuss DNR or withdrawal of care, Hospice)? DNR status @ -no What co-morbidities impacted this encounter? (DM, HTN, Smoking, COPD, CAD, Cancer, CVA, ARF, Chemo, Hep., AIDS, mental health diagnosis, sleep apnea, morbid obesity)? @ -none Was patient admitted / discharged? Hospital course, mention meds given and route, prescriptions, significant lab abnormalities, going to OR and other pertinent info. @ -48 female will be admitted for postoperative complication for surgical evaluation and management Admitted Undiagnosed new problem with uncertain prognosis? @ -no Drug Therapy requiring intensive monitoring for toxicity (Heparin, Nitro, Insulin, Cardizem)? @ -no Were any procedures done? @ -no Diagnosis/symptom? @ - Acute, or Chronic, or Acute on Chronic? @ -Acute Uncomplicated (without systemic symptoms) or Complicated (systemic symptoms)? @ -Complicated Side effects of treatment? @ -no Exacerbation, Progression, or Severe Exacerbation? @ -exacerbation Poses a threat to life or bodily function? How? (Chest pain, USA, VT, pneumonia, PE, COPD, DKA, ARF, appy, cholecystitis, CVA, Diverticulitis, Homicidal, Suicidal, threat to staff... and all critical care pts) @ -yes postoperative complication Reevaluation #5: Differential Abdominal Pain Women: Appendicitis, Cholecystitis, diverticulosis, ischemic bowel, pancreatitis, hepatitis, UTI, gastroenteritis, AAA, incarcerated hernia, bowel obstruction, constipation, inflammatory bowel, hepatitis, peptic ulcer disease, splenic infarction, perforated viscus, vulvitis, ovarian torsion, PID, kidney stone, placenta abruption, this is not meant to be an all-inclusive list - Consultations Consultation #1: Spoke with [facility] who agrees to admit this patient Medical Decision Making - Medical Decision Making 48 female to ER for evaluation abdominal pain postoperative complication recent surgery with Dr. Garcia so Patient will be admitted for reevaluation and contnueed monitoring - Lab Data Result diagrams: 04/07/24 05:45 04/08/24 05:31 Lab Results 04/01/24 04/01/24 04/01/24 Range/Units 18:51 18:51 18:51 WBC 6.6 (3.8-10.6) k/uL RBC 3.83 (3.80-5.40) m/uL Hgb 11.4 (11.4-16.0) gm/dL Hct 37.4 (34.0-46.0) % MCV 97.6 (80.0-100.0) fL MCH 29.8 (25.0-35.0) pg MCHC 30.5 L (31.0-37.0) g/dL RDW 13.3 (11.5-15.5) % Plt Count 292 (150-450) k/uL MPV 8.2 Immature Gran % (Auto) % Absolute Nucleated RBC % Neutrophils % 56 % Lymphocytes % 27 % Monocytes % 11 % Eosinophils % 3 % Basophils % 1 % Immature Gran # (0.00-0.04) X 10*3/uL Neutrophils # 3.7 (1.3-7.7) k/uL Lymphocytes # 1.8 (1.0-4.8) k/uL Monocytes # 0.7 (0-1.0) k/uL Eosinophils # 0.2 (0-0.7) k/uL Basophils # 0.0 (0-0.2) k/uL NRBC/100 WBC Diff (0.00-0.01) X 10*3/uL Hypochromasia Slight PT 11.9 (10.0-12.5) sec INR 1.1 (<1.2) APTT 30.2 H (22.0-30.0) sec Sodium 136 L (137-145) mmol/L Potassium 5.2 H (3.5-5.1) mmol/L Chloride 105 (98-107) mmol/L Carbon Dioxide 29 (22-30) mmol/L Anion Gap 2 mmol/L BUN 12 (7-17) mg/dL Creatinine 1.07 H (0.52-1.04) mg/dL Est GFR (CKD-EPI) (>=60) Est GFR (CKD-EPI)AfAm 71 (>60 ml/min/1.73 sqM) Est GFR (CKD-EPI)NonAf 62 (>60 ml/min/1.73 sqM) BUN/Creatinine Ratio (12.00-20.00) Ratio Glucose 89 (74-99) mg/dL POC Glucose (mg/dL) (70-110) mg/dL POC Glu Molder Vacuum ID Plasma Lactic Acid Laurent (0.7-2.0) mmol/L Calcium 7.9 L (8.4-10.2) mg/dL Phosphorus (2.4-5.1) mg/dL Magnesium (1.5-2.4) mg/dL Total Bilirubin 0.5 (0.2-1.3) mg/dL AST 31 (14-36) U/L ALT 14 (4-34) U/L Alkaline Phosphatase 175 H (38-126) U/L Total Protein 6.1 L (6.3-8.2) g/dL Albumin 2.3 L (3.5-5.0) g/dL Globulin (1.6-3.3) g/dL Albumin/Globulin Ratio (1.60-3.17) Ratio Amylase 30 (30-110) U/L Lipase 26 (23-300) U/L 04/01/24 04/01/24 04/02/24 Range/Units 18:51 22:41 05:18 WBC 6.35 (3.8-10.6) k/uL RBC 3.59 L (3.80-5.40) m/uL Hgb 10.4 L (11.4-16.0) gm/dL Hct 35.3 L (34.0-46.0) % MCV 98.3 H (80.0-100.0) fL MCH 29.0 (25.0-35.0) pg MCHC 29.5 L (31.0-37.0) g/dL RDW 13.6 (11.5-15.5) % Plt Count 339 (150-450) k/uL MPV 10.0 Immature Gran % (Auto) 0.30 % Absolute Nucleated RBC 0 % Neutrophils % 71.5 % Lymphocytes % 16.5 % Monocytes % 5.7 % Eosinophils % 5.8 % Basophils % 0.2 % Immature Gran # 0.02 (0.00-0.04) X 10*3/uL Neutrophils # 4.54 (1.3-7.7) k/uL Lymphocytes # 1.05 (1.0-4.8) k/uL Monocytes # 0.36 (0-1.0) k/uL Eosinophils # 0.37 H (0-0.7) k/uL Basophils # 0.01 (0-0.2) k/uL NRBC/100 WBC Diff 0 (0.00-0.01) X 10*3/uL Hypochromasia PT (10.0-12.5) sec INR (<1.2) APTT (22.0-30.0) sec Sodium (137-145) mmol/L Potassium (3.5-5.1) mmol/L Chloride (98-107) mmol/L Carbon Dioxide (22-30) mmol/L Anion Gap mmol/L BUN (7-17) mg/dL Creatinine (0.52-1.04) mg/dL Est GFR (CKD-EPI) (>=60) Est GFR (CKD-EPI)AfAm (>60 ml/min/1.73 sqM) Est GFR (CKD-EPI)NonAf (>60 ml/min/1.73 sqM) BUN/Creatinine Ratio (12.00-20.00) Ratio Glucose (74-99) mg/dL POC Glucose (mg/dL) 83 (70-110) mg/dL POC Glu Molder Vacuum ID Plasma Lactic Acid Laurent 0.7 (0.7-2.0) mmol/L Calcium (8.4-10.2) mg/dL Phosphorus (2.4-5.1) mg/dL Magnesium (1.5-2.4) mg/dL Total Bilirubin (0.2-1.3) mg/dL AST (14-36) U/L ALT (4-34) U/L Alkaline Phosphatase (38-126) U/L Total Protein (6.3-8.2) g/dL Albumin (3.5-5.0) g/dL Globulin (1.6-3.3) g/dL Albumin/Globulin Ratio (1.60-3.17) Ratio Amylase (30-110) U/L Lipase (23-300) U/L 04/02/24 04/02/24 04/02/24 Range/Units 05:18 06:10 11:23 WBC (3.8-10.6) k/uL RBC (3.80-5.40) m/uL Hgb (11.4-16.0) gm/dL Hct (34.0-46.0) % MCV (80.0-100.0) fL MCH (25.0-35.0) pg MCHC (31.0-37.0) g/dL RDW (11.5-15.5) % Plt Count (150-450) k/uL MPV Immature Gran % (Auto) % Absolute Nucleated RBC % Neutrophils % % Lymphocytes % % Monocytes % % Eosinophils % % Basophils % % Immature Gran # (0.00-0.04) X 10*3/uL Neutrophils # (1.3-7.7) k/uL Lymphocytes # (1.0-4.8) k/uL Monocytes # (0-1.0) k/uL Eosinophils # (0-0.7) k/uL Basophils # (0-0.2) k/uL NRBC/100 WBC Diff (0.00-0.01) X 10*3/uL Hypochromasia PT (10.0-12.5) sec INR (<1.2) APTT (22.0-30.0) sec Sodium 141 (137-145) mmol/L Potassium 4.7 (3.5-5.1) mmol/L Chloride 105 (98-107) mmol/L Carbon Dioxide 29.5 (22-30) mmol/L Anion Gap 6.50 mmol/L BUN 10.6 (7-17) mg/dL Creatinine 1.2 (0.52-1.04) mg/dL Est GFR (CKD-EPI) 55 L (>=60) Est GFR (CKD-EPI)AfAm (>60 ml/min/1.73 sqM) Est GFR (CKD-EPI)NonAf (>60 ml/min/1.73 sqM) BUN/Creatinine Ratio 8.83 L (12.00-20.00) Ratio Glucose 85 (74-99) mg/dL POC Glucose (mg/dL) 93 85 (70-110) mg/dL POC Glu Molder Vacuum ID Barry, Sheri Plasma Lactic Acid Laurent (0.7-2.0) mmol/L Calcium 8.2 L (8.4-10.2) mg/dL Phosphorus 4.9 (2.4-5.1) mg/dL Magnesium 2.1 (1.5-2.4) mg/dL Total Bilirubin 0.2 L (0.2-1.3) mg/dL AST 16 (14-36) U/L ALT 10 (4-34) U/L Alkaline Phosphatase 160 H (38-126) U/L Total Protein 5.4 L (6.3-8.2) g/dL Albumin 2.4 L (3.5-5.0) g/dL Globulin 3.0 (1.6-3.3) g/dL Albumin/Globulin Ratio 0.80 L (1.60-3.17) Ratio Amylase (30-110) U/L Lipase (23-300) U/L 04/02/24 04/02/24 04/03/24 Range/Units 16:49 19:38 05:06 WBC (3.8-10.6) k/uL RBC (3.80-5.40) m/uL Hgb (11.4-16.0) gm/dL Hct (34.0-46.0) % MCV (80.0-100.0) fL MCH (25.0-35.0) pg MCHC (31.0-37.0) g/dL RDW (11.5-15.5) % Plt Count (150-450) k/uL MPV Immature Gran % (Auto) % Absolute Nucleated RBC % Neutrophils % % Lymphocytes % % Monocytes % % Eosinophils % % Basophils % % Immature Gran # (0.00-0.04) X 10*3/uL Neutrophils # (1.3-7.7) k/uL Lymphocytes # (1.0-4.8) k/uL Monocytes # (0-1.0) k/uL Eosinophils # (0-0.7) k/uL Basophils # (0-0.2) k/uL NRBC/100 WBC Diff (0.00-0.01) X 10*3/uL Hypochromasia PT (10.0-12.5) sec INR (<1.2) APTT (22.0-30.0) sec Sodium (137-145) mmol/L Potassium (3.5-5.1) mmol/L Chloride (98-107) mmol/L Carbon Dioxide (22-30) mmol/L Anion Gap mmol/L BUN (7-17) mg/dL Creatinine (0.52-1.04) mg/dL Est GFR (CKD-EPI) (>=60) Est GFR (CKD-EPI)AfAm (>60 ml/min/1.73 sqM) Est GFR (CKD-EPI)NonAf (>60 ml/min/1.73 sqM) BUN/Creatinine Ratio (12.00-20.00) Ratio Glucose (74-99) mg/dL POC Glucose (mg/dL) 94 108 100 (70-110) mg/dL POC Glu Molder Vacuum ID Gracy Chen Dylan Plasma Lactic Acid Laurent (0.7-2.0) mmol/L Calcium (8.4-10.2) mg/dL Phosphorus (2.4-5.1) mg/dL Magnesium (1.5-2.4) mg/dL Total Bilirubin (0.2-1.3) mg/dL AST (14-36) U/L ALT (4-34) U/L Alkaline Phosphatase (38-126) U/L Total Protein (6.3-8.2) g/dL Albumin (3.5-5.0) g/dL Globulin (1.6-3.3) g/dL Albumin/Globulin Ratio (1.60-3.17) Ratio Amylase (30-110) U/L Lipase (23-300) U/L 04/03/24 04/03/24 04/03/24 Range/Units 05:10 05:10 11:37 WBC 5.26 (3.8-10.6) k/uL RBC 3.32 L (3.80-5.40) m/uL Hgb 9.7 L (11.4-16.0) gm/dL Hct 33.0 L (34.0-46.0) % MCV 99.4 H (80.0-100.0) fL MCH 29.2 (25.0-35.0) pg MCHC 29.4 L (31.0-37.0) g/dL RDW 13.7 (11.5-15.5) % Plt Count 299 (150-450) k/uL MPV 9.9 Immature Gran % (Auto) 0.20 % Absolute Nucleated RBC 0 % Neutrophils % 49.3 % Lymphocytes % 27.4 % Monocytes % 8.2 % Eosinophils % 14.3 % Basophils % 0.6 % Immature Gran # 0.01 (0.00-0.04) X 10*3/uL Neutrophils # 2.60 (1.3-7.7) k/uL Lymphocytes # 1.44 (1.0-4.8) k/uL Monocytes # 0.43 (0-1.0) k/uL Eosinophils # 0.75 H (0-0.7) k/uL Basophils # 0.03 (0-0.2) k/uL NRBC/100 WBC Diff 0 (0.00-0.01) X 10*3/uL Hypochromasia PT (10.0-12.5) sec INR (<1.2) APTT (22.0-30.0) sec Sodium 141 (137-145) mmol/L Potassium 4.1 (3.5-5.1) mmol/L Chloride 106 (98-107) mmol/L Carbon Dioxide 29.4 (22-30) mmol/L Anion Gap 5.60 mmol/L BUN 10.4 (7-17) mg/dL Creatinine 1.2 (0.52-1.04) mg/dL Est GFR (CKD-EPI) 55 L (>=60) Est GFR (CKD-EPI)AfAm (>60 ml/min/1.73 sqM) Est GFR (CKD-EPI)NonAf (>60 ml/min/1.73 sqM) BUN/Creatinine Ratio 8.67 L (12.00-20.00) Ratio Glucose 104 (74-99) mg/dL POC Glucose (mg/dL) 99 (70-110) mg/dL POC Glu Molder Vacuum ID Gracy Chen Plasma Lactic Acid Laurent (0.7-2.0) mmol/L Calcium 7.7 L (8.4-10.2) mg/dL Phosphorus (2.4-5.1) mg/dL Magnesium (1.5-2.4) mg/dL Total Bilirubin (0.2-1.3) mg/dL AST (14-36) U/L ALT (4-34) U/L Alkaline Phosphatase (38-126) U/L Total Protein (6.3-8.2) g/dL Albumin (3.5-5.0) g/dL Globulin (1.6-3.3) g/dL Albumin/Globulin Ratio (1.60-3.17) Ratio Amylase (30-110) U/L Lipase (23-300) U/L 04/03/24 04/03/24 04/04/24 Range/Units 16:25 20:22 06:06 WBC (3.8-10.6) k/uL RBC (3.80-5.40) m/uL Hgb (11.4-16.0) gm/dL Hct (34.0-46.0) % MCV (80.0-100.0) fL MCH (25.0-35.0) pg MCHC (31.0-37.0) g/dL RDW (11.5-15.5) % Plt Count (150-450) k/uL MPV Immature Gran % (Auto) % Absolute Nucleated RBC % Neutrophils % % Lymphocytes % % Monocytes % % Eosinophils % % Basophils % % Immature Gran # (0.00-0.04) X 10*3/uL Neutrophils # (1.3-7.7) k/uL Lymphocytes # (1.0-4.8) k/uL Monocytes # (0-1.0) k/uL Eosinophils # (0-0.7) k/uL Basophils # (0-0.2) k/uL NRBC/100 WBC Diff (0.00-0.01) X 10*3/uL Hypochromasia PT (10.0-12.5) sec INR (<1.2) APTT (22.0-30.0) sec Sodium (137-145) mmol/L Potassium (3.5-5.1) mmol/L Chloride (98-107) mmol/L Carbon Dioxide (22-30) mmol/L Anion Gap mmol/L BUN (7-17) mg/dL Creatinine (0.52-1.04) mg/dL Est GFR (CKD-EPI) (>=60) Est GFR (CKD-EPI)AfAm (>60 ml/min/1.73 sqM) Est GFR (CKD-EPI)NonAf (>60 ml/min/1.73 sqM) BUN/Creatinine Ratio (12.00-20.00) Ratio Glucose (74-99) mg/dL POC Glucose (mg/dL) 162 H 166 H 64 L (70-110) mg/dL POC Glu Molder Vacuum ID Gracy Chen Laura Plasma Lactic Acid Laurent (0.7-2.0) mmol/L Calcium (8.4-10.2) mg/dL Phosphorus (2.4-5.1) mg/dL Magnesium (1.5-2.4) mg/dL Total Bilirubin (0.2-1.3) mg/dL AST (14-36) U/L ALT (4-34) U/L Alkaline Phosphatase (38-126) U/L Total Protein (6.3-8.2) g/dL Albumin (3.5-5.0) g/dL Globulin (1.6-3.3) g/dL Albumin/Globulin Ratio (1.60-3.17) Ratio Amylase (30-110) U/L Lipase (23-300) U/L // Range/Units 06:29 WBC (3.8-10.6) k/uL RBC (3.80-5.40) m/uL Hgb (11.4-16.0) gm/dL Hct (34.0-46.0) % MCV (80.0-100.0) fL MCH (25.0-35.0) pg MCHC (31.0-37.0) g/dL RDW (11.5-15.5) % Plt Count (150-450) k/uL MPV Immature Gran % (Auto) % Absolute Nucleated RBC % Neutrophils % % Lymphocytes % % Monocytes % % Eosinophils % % Basophils % % Immature Gran # (0.00-0.04) X 10*3/uL Neutrophils # (1.3-7.7) k/uL Lymphocytes # (1.0-4.8) k/uL Monocytes # (0-1.0) k/uL Eosinophils # (0-0.7) k/uL Basophils # (0-0.2) k/uL NRBC/100 WBC Diff (0.00-0.01) X 10*3/uL Hypochromasia PT (10.0-12.5) sec INR (<1.2) APTT (22.0-30.0) sec Sodium (137-145) mmol/L Potassium (3.5-5.1) mmol/L Chloride (98-107) mmol/L Carbon Dioxide (22-30) mmol/L Anion Gap mmol/L BUN (7-17) mg/dL Creatinine (0.52-1.04) mg/dL Est GFR (CKD-EPI) (>=60) Est GFR (CKD-EPI)AfAm (>60 ml/min/1.73 sqM) Est GFR (CKD-EPI)NonAf (>60 ml/min/1.73 sqM) BUN/Creatinine Ratio (12.00-20.00) Ratio Glucose (74-99) mg/dL POC Glucose (mg/dL) 88 (70-110) mg/dL POC Glu Molder Vacuum ID Plasma Lactic Acid Laurent (0.7-2.0) mmol/L Calcium (8.4-10.2) mg/dL Phosphorus (2.4-5.1) mg/dL Magnesium (1.5-2.4) mg/dL Total Bilirubin (0.2-1.3) mg/dL AST (14-36) U/L ALT (4-34) U/L Alkaline Phosphatase (38-126) U/L Total Protein (6.3-8.2) g/dL Albumin (3.5-5.0) g/dL Globulin (1.6-3.3) g/dL Albumin/Globulin Ratio (1.60-3.17) Ratio Amylase (30-110) U/L Lipase (23-300) U/L - Radiology Data Radiology results: report reviewed (CT abdomen pelvis shows no significant acute complication), image reviewed Disposition Clinical Impression: Abdominal pain, Abdominal wall abscess, Seroma after procedure Disposition: ADMITTED IP TO THIS [facility] Condition: Stable Is patient prescribed a controlled substance at d/c from ED?: No Time of Disposition: 19:35
[2024-04-01 19:04] LABS: Basophils % (A) 1 %; Eosinophils # (A) 0.2 k/uL (0-0.7); Eosinophils % (A) 3 %; HCT 37.4 % (34.0-46.0); HGB 11.4 gm/dL (11.4-16.0); Hypochromasia Slight; Lymphocytes # (A) 1.8 k/uL (1.0-4.8); Lymphocytes % (A) 27 %; MCH 29.8 pg (25.0-35.0); MCHC 30.5 g/dL (31.0-37.0); MCV 97.6 fL (80.0-100.0); Mean Platelet Volume 8.2; Monocytes # (A) 0.7 k/uL (0-1.0); Monocytes % (A) 11 %; Neutrophils # (A) 3.7 k/uL (1.3-7.7); Neutrophils % (A) 56 %; Platelet Count 292 k/uL (150-450); RBC 3.83 m/uL (3.80-5.40); RDW 13.3 % (11.5-15.5); WBC 6.6 k/uL (3.8-10.6)
[2024-04-01 19:12] LABS: INR 1.1 (<1.2); Partial Thromboplastin Time 30.2 sec (22.0-30.0); Prothrombin Time 11.9 sec (10.0-12.5)
[2024-04-01 19:16] LABS: ALT 14 U/L (4-34); African American GFR (CKD) 71 (>60 ml/min/1.73 sqM); Amylase 30 U/L (30-110); Anion Gap 2 mmol/L; Blood Urea Nitrogen 12 mg/dL (7-17); Calcium 7.9 mg/dL (8.4-10.2); Carbon Dioxide 29 mmol/L (22-30); Chloride 105 mmol/L (98-107); Glucose 89 mg/dL (74-99); Lipase 26 U/L (23-300); Non-African American GFR(CKD) 62 (>60 ml/min/1.73 sqM); Sodium 136 mmol/L (137-145)
[2024-04-01 19:19] LABS: AST 31 U/L (14-36); Albumin 2.3 g/dL (3.5-5.0); Alkaline Phosphatase 175 U/L (38-126); Potassium 5.2 mmol/L (3.5-5.1); Total Bilirubin 0.5 mg/dL (0.2-1.3); Total Protein 6.1 g/dL (6.3-8.2)
[2024-04-01] MEDS: SODIUM CHLORIDE 0.9% 500 ML 500 ML IV STA (19:27)
[2024-04-01] MEDS: SODIUM CHLORIDE 0.9% 1,000 ML IV STA (19:27)
[2024-04-01] MEDS ORDERED: NALOXONE 0.4 MG/ML 1 ML VIAL IV PRN (19:32)
--- NOTE | 2024-04-01 19:44 | CT ---
EXAMINATION TYPE: CT abdomen pelvis w con CT DLP: 2955.4 mGycm, Automated exposure control for dose reduction was used. DATE OF EXAM: 04/01/2024 7:10 PM COMPARISON: CT abdomen pelvis most recent from 03/05/2024. CLINICAL INDICATION:Female, 48 years old with history of abdominal pain; Abdominal pain. TECHNIQUE: Axial CT abdomen pelvis w con;Sagittal and coronal reformats were created on a separate w orkstation. Contrast used:80 ml mL of Isovue 300 with IV Contrast, (none if empty) Oral contrast used: without Oral Contrast (none if empty) FINDINGS: LOWER CHEST: Unchanged rounded atelectasis. ABDOMEN LIVER: Unremarkable GALLBLADDER AND BILE DUCTS: Pneumobilia in the left hepatic lobe new from prior gallbladder surgicall y absent. PANCREAS: Similar morphology to the pancreas SPLEEN: Unremarkable. ADRENAL GLANDS: Unremarkable. KIDNEYS AND URETERS: No evidence of hydronephrosis or renal calculus. The ureters are unremarkable. PELVIS BLADDER: Nondistended with Calderon catheter in place. REPRODUCTIVE: Unremarkable. ABDOMEN & PELVIS STOMACH AND BOWEL: No evidence of bowel obstruction. There is left lower quadrant ostomy with parasto mal hernia. Right abdominal drainage catheter remains in place. No organizing fluid collection in the abdomen suggest abscess. Postsurgical changes to the gastric lumen. Gastric diverticulum near the le ft adrenal gland is before the stomach and enters the thorax. PERITONEUM/RETROPERITONEUM: No evidence of pneumoperitoneum or free fluid. VASCULATURE: No evidence of aortic aneurysm. MUSCULOSKELETAL: No acute osseous abnormalities LYMPH NODES: No gross evidence for lymphadenopathy. SOFT TISSUE/ABDOMINAL WALL: Right anterior abdominal wall postsurgical change. IMPRESSION: 1. Right abdominal drainage catheter without evidence for organizing fluid collection. Consider sandee neida of drainage catheter. 2. 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 3. New pneumobilia within the left hepatic lobe. 4. Urinary bladder Calderon catheter in appropriate position.
[2024-04-01] MEDS: HYDROmorphone 1 MG/ML 1 ML SYRINGE IVP STA (20:07)
[2024-04-01] MEDS: SODIUM CHLORIDE 0.9% 1,000 ML IV SCH (20:08)
[2024-04-01 22:48] LABS: Glucose,Whole Blood 83 mg/dL (70-110)
[2024-04-02] MEDS: HYDROmorphone 1 MG/ML 1 ML SYRINGE IVP PRN (00:09)
[2024-04-02 06:29] LABS: Glucose,Whole Blood 93 mg/dL (70-110)
[2024-04-02 09:36] LABS: Basophils # (A) 0.01 X 10*3/uL (0.00-0.10); Basophils % (A) 0.2 %; Eosinophils # (A) 0.37 X 10*3/uL (0.04-0.35); Eosinophils % (A) 5.8 %; HCT 35.3 % (37.2-46.3); HGB 10.4 g/dL (12.0-15.0); Lymphocytes # (A) 1.05 X 10*3/uL (0.90-5.00); Lymphocytes % (A) 16.5 %; MCHC 29.5 g/dL (32.0-37.0); MCV 98.3 FL (80.0-97.0); Monocytes # (A) 0.36 X 10*3/uL (0.20-1.00); Monocytes % (A) 5.7 %; NRBC Per 100 WBC 0 X 10*3/uL (0.00-0.01); Neutrophils # (A) 4.54 X 10*3/uL (1.80-7.70); Neutrophils % (A) 71.5 %; Platelet Count 339 X 10*3/uL (140-440); RBC 3.59 X 10*6/uL (4.10-5.20); RDW 13.6 % (11.5-14.5); WBC 6.35 X 10*3/uL (4.50-10.00)
[2024-04-02] MEDS: PANTOPRAZOLE 40 MG/10 ML VIAL IV SCH (09:48)
[2024-04-02 10:09] LABS: ALT 10 U/L (8-44); AST 16 U/L (13-35); Albumin 2.4 g/dL (3.8-4.9); Alkaline Phosphatase 160 U/L (41-126); BUN/Creat Ratio 8.83 Ratio (12.00-20.00); Blood Urea Nitrogen 10.6 mg/dL (9.0-27.0); Calcium 8.2 mg/dL (8.7-10.3); Carbon Dioxide 29.5 mmol/L (21.6-31.8); Chloride 105 mmol/L (96-109); Glucose 85 mg/dL (70-110); Magnesium 2.1 mg/dL (1.5-2.4); Phosphorus 4.9 mg/dL (2.4-5.1); Potassium 4.7 mmol/L (3.5-5.5); Sodium 141 mmol/L (135-145); Total Bilirubin 0.2 mg/dL (0.3-1.2); Total Protein 5.4 g/dL (6.2-8.2)
[2024-04-02 11:25] LABS: Glucose,Whole Blood 85 mg/dL (70-110)
[2024-04-02] MEDS ORDERED: SENNOSIDES 8.6 MG TAB PO PRN (12:15)
[2024-04-02] MEDS ORDERED: ACETAMINOPHEN TAB 325 MG TAB PO PRN (12:15)
--- NOTE | 2024-04-02 12:19 | P.CON ---
Consult Note - . Consult date: 04/02/24 Assessment/Plan:: This is a 48-year-old female who is a mildly poor historian coming in for postoperative complication. Concern for postoperative pelvic infection seroma versus abscess. Patient was transferred to the ER for evaluation and outpatient testing yesterday patient states she was sent in for evaluation today by Dr. Garcia She has a history of open appendectomy. CT-AP shows no intraabdominal abscess. Patient does have a drain in place. Review of Systems ROS Statement: Those systems with pertinent positive or pertinent negative responses have been documented in the HPI. ROS Other: All systems not noted in ROS Statement are negative. Past Medical History Past Medical History: Atrial Fibrillation, Diabetes Mellitus, GERD/Reflux, Seizure Disorder Additional Past Medical History / Comment(s): admitted to [facility] May 2022 for sepsis/uti,acute renal failure. 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 uses a beata lift,goff catheter,colostomy,chronic inflammatory demyelinating polyneuritis,anemia,date of last seizure unk History of Any Multi-Drug Resistant Organisms: ESBL Date of last positivie culture/infection: 11/17/23 ESBL E.coli MDRO Source:: Urine Additional Past Surgical History / Comment(s): Urethral stents x 2 Smoking Status: Never smoker Past Alcohol Use History: None Reported Past Drug Use History: None Reported - Past Family History Father History Unknown: Yes General Exam Limitations: no limitations General appearance: alert, in no apparent distress, obese Head exam: Present: atraumatic, normocephalic, normal inspection Eye exam: Present: normal appearance, PERRL, EOMI. Absent: scleral icterus, conjunctival injection, periorbital swelling ENT exam: Present: normal exam, mucous membranes moist Neck exam: Present: normal inspection. Absent: tenderness, meningismus, lymphadenopathy Respiratory exam: Present: normal lung sounds bilaterally. Absent: respiratory distress, wheezes, rales, rhonchi, stridor Cardiovascular Exam: Present: regular rate, normal rhythm, normal heart sounds. Absent: systolic murmur, diastolic murmur, rubs, gallop, clicks GI/Abdominal exam: Present: soft, normal bowel sounds. Absent: distended, tenderness, guarding, rebound, rigid Extremities exam: Present: normal inspection, full ROM, normal capillary refill. Absent: tenderness, pedal edema, joint swelling, calf tenderness Back exam: Present: normal inspection Neurological exam: Present: alert, oriented X3, CN II-XII intact Psychiatric exam: Present: normal affect, normal mood Skin exam: Present: warm, dry, intact, normal color. Absent: rash 48 year old female with history of open appendectomy, SSI, and abdominal pain - CT-AP shows no intraabominal abscess. Drain putting our serous fluid - SSI noted, some obi removed and wound probed bedside - Clindamycin - Regular Diet
[2024-04-02] MEDS: METOPROLOL SUCCINATE (ER) 25 MG TAB.ER.24H PO SCH (12:35)
[2024-04-02] MEDS: FAMOTIDINE 20 MG TAB PO SCH (12:36)
[2024-04-02] MEDS: CLINDAMYCIN 900 MG in DEXTROSE 5% IN WATER 50 ML IVPB SCH (12:49)
[2024-04-02] MEDS: FLECAINIDE 50 MG TAB PO SCH (12:50)
[2024-04-02] MEDS: GABAPENTIN 300 MG CAP PO SCH (14:01)
[2024-04-02 14:26] VITALS: BMI 35.2
[2024-04-02 16:50] LABS: Glucose,Whole Blood 94 mg/dL (70-110)
[2024-04-02 19:40] LABS: Glucose,Whole Blood 108 mg/dL (70-110)
[2024-04-02] MEDS: BACLOFEN 10 MG TAB PO SCH (20:32)
[2024-04-02] MEDS: MAGNESIUM OXIDE 400 MG TAB PO SCH (20:33)
[2024-04-02] MEDS: INSULIN DETEMIR (LEVEMIR) 100 UNIT/ML SYR SQ SCH (20:44)
[2024-04-02] MEDS ORDERED: NON FORMULARY DRUG (Cranberry Fruit [Cranberry] 465 MG Capsule) PO SCH (21:00)
--- NOTE | 2024-04-02 23:14 | P.HPIM ---
History of Present Illness H&P Date: 04/02/24 Chief Complaint: Drainage from surgical site Patient is a 48-year-old female with a recent history of open appendectomy on 03/14/2024, atrial fibrillation on anticoagulation with Eliquis, seizure disorder, GERD, history of Guillain-Wall syndrome with improvement in right upp er extremity weakness, use of Kayla lift, chronic inflammatory demyelinating polyneuritis, history of ESBL UTI and prior history of smoking. Patient is confused at baseline and complete history could not be obtained. Patient was sent to ER due to outpatient abnormal lab workup. Patient was complaining of drainage from his surgical site. Patient was sent to ER due to concern for postoperative pelvic infection seroma versus abscess. CT of the abdomen pelvis showed right abdominal drainage catheter without evidence for organizing fluid collection. Consider removal of drainage catheter. 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 New pneumobilia within the left hepatic lobe. Urinary bladder Goff catheter in appropriate position. Laboratory data showed WBC 6.35 hemoglobin 10.4 and platelets 339 Sodium 141 potassium 4.7 chloride 105 bicarb is 29.5 BUN 10.6 and creatinine 1.2 and blood sugar 85 alk phos 160 and albumin 2.4 Review of Systems Constitutional: Patient denies any fever or chills . No generalized weakness or weight loss. Abdomen: Patient denied nausea vomiting and diarrhea and abdominal pain. Cardiovascular: Patient denies any chest pain or short of breath no palpitations. Respiratory: patient denied any cough is from production. No shortness of breath Neurologic: Patient denied any numbness or tingling headache. Musculoskeletal: Patient denies any complaints of joint swelling or deformity. Skin: Discharge from surgical site Psychiatric: Negative Endocrine: No heat or cold intolerance. No recent weight gain. Genitourinary: No dysuria or hematuria. All other 14 point ROS negative except the above Past Medical History Past Medical History: Atrial Fibrillation, Diabetes Mellitus, GERD/Reflux, Seizure Disorder Additional Past Medical History / Comment(s): admitted to [facility] May 2022 for sepsis/uti,acute renal failure. 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 uses a kayla lift,goff catheter,colostomy,chronic inflammatory demyelinating polyneuritis,anemia,date of last seizure unk History of Any Multi-Drug Resistant Organisms: ESBL Date of last positivie culture/infection: 11/17/23 ESBL E.coli MDRO Source:: Urine Additional Past Surgical History / Comment(s): Urethral stents x 2 Past Anesthesia/Blood Transfusion Reactions: No Reported Reaction Smoking Status: Former smoker Past Alcohol Use History: None Reported Past Drug Use History: None Reported - Past Family History Father History Unknown: Yes Medications and Allergies Home Medications Medication Instructions Recorded Confirmed Type Acetaminophen Tab [Tylenol] 650 mg PO Q6H PRN 06/18/22 04/01/24 History Apixaban [Eliquis] 5 mg PO BID 06/18/22 04/01/24 History Baclofen 5 mg PO BID 06/18/22 04/01/24 History Gabapentin [Neurontin] 300 mg PO TID@0600,1400,2200 06/18/22 04/01/24 History Multivitamins, Thera [Multivitamin 1 tab PO DAILY 06/18/22 04/01/24 History (formulary)] Oxybutynin Chloride [Oxybutynin 15 mg PO DAILY 06/18/22 04/01/24 History Chloride ER] Cholecalciferol [Vitamin D3 (25 25 mcg PO DAILY 11/19/23 04/01/24 History Mcg = 1000 Iu)] Docusate Sodium [Dok] 100 mg PO DAILY PRN 11/19/23 04/01/24 History Famotidine [Pepcid] 20 mg PO DAILY 11/19/23 04/01/24 History Insulin Lispro [humaLOG Kwikpen] See Protocol SQ ACHS 11/19/23 04/01/24 History Magnesium Oxide [Mag-Ox] 400 mg PO BID 11/19/23 04/01/24 History Semaglutide [Ozempic] 0.5 mg SQ SA 11/19/23 04/01/24 History Suvorexant [Belsomra] 15 mg PO HS 11/19/23 04/01/24 History Venlafaxine HCl ER [Effexor Xr] 37.5 mg PO DAILY 11/19/23 04/01/24 History Ondansetron [Zofran] 4 mg PO Q8H PRN 03/13/24 04/01/24 History levETIRAcetam [Keppra] 750 mg PO BID 03/13/24 04/01/24 History Ascorbic Acid [Vitamin C] 500 mg PO BID 04/01/24 04/01/24 History Cephalexin [Keflex] 500 mg PO QID@09,,17,21 04/01/24 04/01/24 History Cranberry Fruit [Cranberry] 465 mg PO BID 04/01/24 04/01/24 History Ergocalciferol (Vitamin D2) 1,250 mcg PO WE 04/01/24 04/01/24 History [Drisdol (50,000 Iu)] Ferrous Sulfate [Feosol] 325 mg PO BID 04/01/24 04/01/24 History Flecainide Acetate [Tambocor] 50 mg PO BID 04/01/24 04/01/24 History Folic Acid 1 mg PO DAILY 04/01/24 04/01/24 History Insulin Glargine-Yfgn [Semglee 15 unit SQ BID 04/01/24 04/01/24 History (Yfgn) Pen] Menthol-Zinc Oxide Oint 1 applic TOPICAL DAILY PRN 04/01/24 04/01/24 History [Calmoseptine Ointment] Metoprolol Succinate (ER) [Toprol 12.5 mg PO DAILY 04/01/24 04/01/24 History Xl] Sennosides [Senokot] 17.2 mg PO BID PRN 04/01/24 04/01/24 History oxyCODONE HCL [Oxycodone HCl] 10 mg PO QID@00,06,12,18 04/01/24 04/01/24 History oxyCODONE HCL [oxyCODONE HCL (IR)] 10 mg PO Q4H PRN 04/01/24 04/01/24 History Allergies Allergy/AdvReac Type Severity Reaction Status Date / Time shellfish derived [Shellfish] Allergy Unknown Verified 04/01/24 17:53 strawberry Allergy Unknown Verified 04/01/24 17:53 Physical Exam Vitals: Vital Signs Temp Pulse Pulse Resp BP BP Pulse Ox 04/02/24 08:26 98 F 90 13 166/98 92 L 04/02/24 02:00 98.0 F 75 17 90/60 04/01/24 22:40 98.9 F 75 15 123/47 04/01/24 21:31 98 F 78 18 121/69 98 04/01/24 20:00 71 18 99/60 95 04/01/24 19:27 72 18 119/73 95 04/01/24 18:58 16 106/58 96 04/01/24 16:15 97.8 F 74 16 106/58 94 L Intake and Output 04/01/24 04/02/24 04/02/24 22:59 06:59 14:59 Output Total 40 1600 Balance -40 -1600 Output: Drainage 40 Right Abdomen 40 Urine 1600 Other: Voiding Method Indwelling Catheter Weight 121.109 kg PHYSICAL EXAMINATION: Patient is lying in the bed comfortably, no acute distress, awake alert and oriented.. HEENT: Normocephalic. Neck is supple. Pupils reactive. Nostrils clear. Oral cavity is moist. Neck reveals no JVD, carotid bruits, or thyromegaly. CHEST EXAMINATION: Trachea is central. Symmetrical expansion. Lung nicole clear to auscultation and percussion. CARDIAC: Normal S1, S2 with no gallops. No murmurs ABDOMEN: Soft. Bowel sounds present. Right-sided abdominal drain catheter in place, colostomy present.. No organomegaly. No abdominal bruits. Extremities: reveal no edema. No clubbing or cyanosis Neurologically awake, alert, oriented x 2-3 able to move upper extremities. Paraplegic. Skin: No rash or skin lesions. Psychiatric: Coperative. Nonsuicidal anxious. Musculoskeletal: No joint swelling or deformity. Normal range of motion. Results CBC & Chem 7: 04/02/24 05:18 04/02/24 05:18 Labs: Abnormal Lab Results - Last 24 Hours (Table) 04/01/24 04/01/24 04/01/24 Range/Units 18:51 18:51 18:51 RBC (4.10-5.20) X 10*6/uL Hgb (12.0-15.0) g/dL Hct (37.2-46.3) % MCV (80.0-97.0) FL MCHC 30.5 L (31.0-37.0) g/dL Eosinophils # (0.04-0.35) X 10*3/uL APTT 30.2 H (22.0-30.0) sec Sodium 136 L (137-145) mmol/L Potassium 5.2 H (3.5-5.1) mmol/L Creatinine 1.07 H (0.52-1.04) mg/dL Calcium 7.9 L (8.4-10.2) mg/dL Alkaline Phosphatase 175 H (38-126) U/L Total Protein 6.1 L (6.3-8.2) g/dL Albumin 2.3 L (3.5-5.0) g/dL 04/02/24 Range/Units 05:18 RBC 3.59 L (4.10-5.20) X 10*6/uL Hgb 10.4 L (12.0-15.0) g/dL Hct 35.3 L (37.2-46.3) % MCV 98.3 H (80.0-97.0) FL MCHC 29.5 L (31.0-37.0) g/dL Eosinophils # 0.37 H (0.04-0.35) X 10*3/uL APTT (22.0-30.0) sec Sodium (137-145) mmol/L Potassium (3.5-5.1) mmol/L Creatinine (0.52-1.04) mg/dL Calcium (8.4-10.2) mg/dL Alkaline Phosphatase (38-126) U/L Total Protein (6.3-8.2) g/dL Albumin (3.5-5.0) g/dL Assessment and Plan Assessment: Concern for postoperative pelvic infection serum versus abscess. CT of the abdomen pelvis showed no intra-abdominal abscess. Right abdominal drainage catheter without evidence for organizing fluid collection. History of recent open appendectomy on 03/14/2024. Postoperatively patient was transferred to [facility] as per patient and family request. 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 Seizure disorder GERD Chronic inflammatory demyelinating polyneuritis. History of ESBL UTI Anxiety/depression DVT prophylaxis patient is already on Eliquis GI prophylaxis with PPI Plan: Patient will be continued on IV hydration with normal saline. CT of the abdomen pelvis showed no evidence of abscess. Continue with clindamycin. General surgery is on board. No surgical intervention recommended at this time. Continue with home medications and pain management and follow-up closely. Discussed with patient in detail at bedside. Time with Patient: Greater than 30
[2024-04-03 05:08] LABS: Glucose,Whole Blood 100 mg/dL (70-110)
[2024-04-03 09:30] LABS: Basophils # (A) 0.03 X 10*3/uL (0.00-0.10); Basophils % (A) 0.6 %; Eosinophils # (A) 0.75 X 10*3/uL (0.04-0.35); Eosinophils % (A) 14.3 %; HGB 9.7 g/dL (12.0-15.0); Lymphocytes # (A) 1.44 X 10*3/uL (0.90-5.00); Lymphocytes % (A) 27.4 %; MCH 29.2 pg (27.0-32.0); MCHC 29.4 g/dL (32.0-37.0); MCV 99.4 FL (80.0-97.0); Mean Platelet Volume 9.9 FL (9.5-12.2); Monocytes # (A) 0.43 X 10*3/uL (0.20-1.00); Monocytes % (A) 8.2 %; NRBC Per 100 WBC 0 X 10*3/uL (0.00-0.01); Neutrophils % (A) 49.3 %; Platelet Count 299 X 10*3/uL (140-440); RBC 3.32 X 10*6/uL (4.10-5.20); RDW 13.7 % (11.5-14.5); WBC 5.26 X 10*3/uL (4.50-10.00)
[2024-04-03] MEDS: CHOLECALCIFEROL 25 MCG (1000 IU) TABLET PO SCH (09:31)
[2024-04-03] MEDS: MULTIVITAMINS, THERA 1 EACH TAB PO SCH (09:31)
[2024-04-03] MEDS: APIXABAN 5 MG TAB PO SCH (09:32)
[2024-04-03] MEDS: OXYBUTYNIN 15 MG TAB.ER.24 PO SCH (09:32)
[2024-04-03] MEDS: VENLAFAXINE HCL ER 37.5 MG CAP PO SCH (09:33)
[2024-04-03 10:07] LABS: BUN/Creat Ratio 8.67 Ratio (12.00-20.00); Blood Urea Nitrogen 10.4 mg/dL (9.0-27.0); Calcium 7.7 mg/dL (8.7-10.3); Carbon Dioxide 29.4 mmol/L (21.6-31.8); Chloride 106 mmol/L (96-109); Glucose 104 mg/dL (70-110); Potassium 4.1 mmol/L (3.5-5.5); Sodium 141 mmol/L (135-145)
--- NOTE | 2024-04-03 11:27 | P.PN ---
Subjective Progress Note Date: 04/03/24 Principal diagnosis: Wound infection 48-year-old female here for drainage from her incision site inferiorly. CAT scan shows no definite abscess. JANELLE drain 10 cc overnight. Tolerating regular diet. White blood cell count remains normal. Objective - Vital Signs Vital signs: Vital Signs Temp 98.1 F 04/03/24 06:42 Pulse 70 04/03/24 09:30 Resp 13 04/03/24 06:42 BP 101/58 04/03/24 09:30 Pulse Ox 93 L 04/03/24 06:42 FiO2 Intake & Output 04/02/24 04/03/24 04/03/24 18:59 06:59 18:59 Output Total 2125 1400 1110 Balance -5 -1400 -1110 Weight 121.109 kg Output: Drainage 110 Right Abdomen 110 Urine 2125 1400 1000 Other: Voiding Method Indwelling Catheter Indwelling Catheter # Voids 1 - Exam Abdomen: Soft, distended, ostomy in place, upper midline incision present, 2 inferior obi were removed yesterday. Small amount of purulent drainage noted. - Labs CBC & Chem 7: 04/03/24 05:10 04/03/24 05:10 Labs: Abnormal Lab Results - Last 24 Hours (Table) 04/03/24 04/03/24 Range/Units 05:10 05:10 RBC 3.32 L (4.10-5.20) X 10*6/uL Hgb 9.7 L (12.0-15.0) g/dL Hct 33.0 L (37.2-46.3) % MCV 99.4 H (80.0-97.0) FL MCHC 29.4 L (32.0-37.0) g/dL Eosinophils # 0.75 H (0.04-0.35) X 10*3/uL Est GFR (CKD-EPI) 55 L (>=60) BUN/Creatinine Ratio 8.67 L (12.00-20.00) Ratio Calcium 7.7 L (8.7-10.3) mg/dL Microbiology - Last 24 Hours (Table) 04/01/24 18:40 Blood Culture - Preliminary Blood 04/01/24 18:25 Blood Culture - Preliminary Blood Assessment and Plan (1) Abdominal wall abscess Narrative/Plan: 48-year-old female with abdominal wall infection. Cultures taken from the purulent fluid at the inferior aspect of her incision. Begin Aquacel silver dressing changes daily. Continue antibiotics. Current Visit: Yes Status: Acute Code(s): L02.211 - CUTANEOUS ABSCESS OF ABDOMINAL WALL SNOMED Code(s): 67586321
[2024-04-03 11:39] LABS: Glucose,Whole Blood 99 mg/dL (70-110)
[2024-04-03 16:27] LABS: Glucose,Whole Blood 162 mg/dL (70-110)
[2024-04-03 20:29] LABS: Glucose,Whole Blood 166 mg/dL (70-110)
[2024-04-04 06:09] LABS: Glucose,Whole Blood 64 mg/dL (70-110)
[2024-04-04 06:31] LABS: Glucose,Whole Blood 88 mg/dL (70-110)
[2024-04-04 11:40] LABS: Glucose,Whole Blood 78 mg/dL (70-110)
--- NOTE | 2024-04-04 14:36 | P.PN ---
Subjective Progress Note Date: 04/04/24 CHIEF COMPLAINT: Wound infection HISTORY OF PRESENT ILLNESS: Patient with drainage from the inferior portion of her incision. Corn were removed by surgeon yesterday and currently has Aquacel silver packing. There is still purulent drainage. Patient does complain of abdominal pain. No definite abscess on CAT scan. JANELLE drain with 20 mL serous fluid. Afebrile. WBC 5.26 PHYSICAL EXAM: VITAL SIGNS: Reviewed. GENERAL: Well-developed in no acute distress. ABDOMEN: Soft. Obese nondistended. Incisional purulent drainage distal aspect of incision NEUROLOGIC: Alert and oriented. Cranial nerves II through XII grossly intact. ASSESSMENT: 1. Abdominal wall incisional infection with purulent drainage. 2. Status post open appendectomy on 03/14/2024 for acute ruptured appendicitis PLAN: -Continue antibiotics -Continue Aquacel silver dressing changes daily -Follow-up on culture results -Repeat CBC in a.m. -Resume patient's oral pain medication Physician Facilities Maintenance Supervisor note has been reviewed by physician. Signing provider agrees with the documented findings, assessment, and plan of care. Objective - Vital Signs Vital signs: Vital Signs Temp 97.8 F 04/04/24 07:51 Pulse 74 04/04/24 08:00 Resp 18 04/04/24 08:00 BP 95/58 04/04/24 07:51 Pulse Ox 97 04/04/24 07:51 FiO2 Intake & Output 04/03/24 04/04/24 04/04/24 18:59 06:59 18:59 Intake Total 200 Output Total 1415 1115 120 Balance -1415 -1115 80 Intake: Oral 200 Output: Drainage 190 40 20 Right Abdomen 190 40 20 Urine 1225 975 Stool 100 100 Other: Voiding Method Indwelling Catheter Indwelling Catheter Indwelling Catheter - Labs CBC & Chem 7: 04/03/24 05:10 04/03/24 05:10 Labs: Abnormal Lab Results - Last 24 Hours (Table) 04/03/24 04/03/24 04/04/24 Range/Units 16:25 20:22 06:06 POC Glucose (mg/dL) 162 H 166 H 64 L (70-110) mg/dL Microbiology - Last 24 Hours (Table) 04/03/24 10:40 Gram Stain - Preliminary Abdomen 04/01/24 18:40 Blood Culture - Preliminary Blood 04/01/24 18:25 Blood Culture - Preliminary Blood
[2024-04-04 17:00] LABS: Glucose,Whole Blood 161 mg/dL (70-110)
[2024-04-04 20:00] LABS: Glucose,Whole Blood 185 mg/dL (70-110)
[2024-04-05 06:05] LABS: Glucose,Whole Blood 82 mg/dL (70-110)
[2024-04-05 09:23] LABS: Basophils % (A) 1 %; Eosinophils # (A) 0.2 k/uL (0-0.7); Eosinophils % (A) 5 %; HCT 35.5 % (34.0-46.0); HGB 10.8 gm/dL (11.4-16.0); Hypochromasia Slight; Lymphocytes # (A) 1.4 k/uL (1.0-4.8); Lymphocytes % (A) 32 %; MCH 30.1 pg (25.0-35.0); MCHC 30.5 g/dL (31.0-37.0); MCV 98.7 fL (80.0-100.0); Mean Platelet Volume 7.5; Monocytes # (A) 0.3 k/uL (0-1.0); Monocytes % (A) 6 %; Neutrophils # (A) 2.2 k/uL (1.3-7.7); Neutrophils % (A) 53 %; Platelet Count 231 k/uL (150-450); RBC 3.59 m/uL (3.80-5.40); RDW 13.1 % (11.5-15.5); WBC 4.2 k/uL (3.8-10.6)
[2024-04-05] MEDS: ONDANSETRON 4 MG/2 ML VIAL IVP PRN (09:29)
[2024-04-05 11:18] LABS: Glucose,Whole Blood 107 mg/dL (70-110)
--- NOTE | 2024-04-05 13:19 | P.PN ---
Subjective Progress Note Date: 04/05/24 CHIEF COMPLAINT: Wound infection HISTORY OF PRESENT ILLNESS: Patient with drainage from the inferior portion of her incision. Patient complains of abdominal pain. Mostly at the incision site and JANELLE drain site. She reports the pain is 7 out of 10. She did have a low- grade temp of 100.2 yesterday afternoon. WBC is 4.2 Hgb 10.8 platelets 231 cultures pending Patient seen and examined with Dr. Garcia PHYSICAL EXAM: VITAL SIGNS: Reviewed. GENERAL: Well-developed in no acute distress. ABDOMEN: Soft. Obese nondistended. Incisional purulent drainage distal aspect of incision. No erythema. Tenderness at incision site JANELLE drain serous 30 mL output NEUROLOGIC: Alert and oriented. Cranial nerves II through XII grossly intact. ASSESSMENT: 1. Abdominal wall incisional infection with purulent drainage. 2. Status post open appendectomy on 03/14/2024 for acute ruptured appendicitis PLAN: -Continue antibiotics -Continue Aquacel silver dressing changes q 48 hours -Follow-up on culture results -Continue pain management -Discontinue JANELLE drain Physician Health Support Specialist note has been reviewed by physician. Signing provider agrees with the documented findings, assessment, and plan of care. Objective - Vital Signs Vital signs: Vital Signs Temp 97.8 F 04/05/24 06:58 Pulse 68 04/05/24 06:58 Resp 18 04/05/24 06:58 BP 111/66 04/05/24 06:58 Pulse Ox 95 04/05/24 06:58 FiO2 Intake & Output 04/04/24 04/05/24 04/05/24 18:59 06:59 18:59 Intake Total 200 Output Total 495 4580 Balance -295 -4580 Intake: Oral 200 Output: Drainage 20 30 Right Abdomen 20 30 Urine 375 4550 Stool 100 Other: Voiding Method Indwelling Catheter Indwelling Catheter Indwelling Catheter - Labs CBC & Chem 7: 04/05/24 08:40 04/03/24 05:10 Labs: Abnormal Lab Results - Last 24 Hours (Table) 04/04/24 04/04/24 04/05/24 Range/Units 16:58 19:59 08:40 RBC 3.59 L (3.80-5.40) m/uL Hgb 10.8 L (11.4-16.0) gm/dL MCHC 30.5 L (31.0-37.0) g/dL POC Glucose (mg/dL) 161 H 185 H (70-110) mg/dL Microbiology - Last 24 Hours (Table) 04/01/24 18:40 Blood Culture - Preliminary Blood 04/01/24 18:25 Blood Culture - Preliminary Blood 04/03/24 10:40 Gram Stain - Preliminary Abdomen Wound Culture - Preliminary
[2024-04-05 16:15] LABS: Glucose,Whole Blood 161 mg/dL (70-110)
[2024-04-05 19:31] LABS: Glucose,Whole Blood 178 mg/dL (70-110)
--- NOTE | 2024-04-05 23:06 | P.PN ---
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 Patient is confused at baseline and complete history could not be obtained. Patient was sent to ER due to outpatient abnormal lab workup. Patient was complaining of drainage from his surgical site. Patient was sent to ER due to concern for postoperative pelvic infection seroma versus abscess. CT of the abdomen pelvis showed right abdominal drainage catheter without evidence for organizing fluid collection. Consider removal of drainage catheter. 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 New pneumobilia within the left hepatic lobe. Urinary bladder Calderon catheter in appropriate position. Laboratory data showed WBC 6.35 hemoglobin 10.4 and platelets 339 Sodium 141 potassium 4.7 chloride 105 bicarb is 29.5 BUN 10.6 and creatinine 1.2 and blood sugar 85 alk phos 160 and albumin 2.4 04/03/2024 Patient is resting in bed. Awake alert and oriented x 3. On room air. Still complains of lower abdominal pain. Patient does have JANELLE drain in place with 10 cc overnight. Tolerating regular diet. Patient has been continued on antibiotics, clindamycin. Blood cultures negative so far. Laboratory data showed WBC 5.2 hemoglobin 9.7 and platelets 299 sodium 141 potassium 4.1 chloride 106 bicarb is 29.4 BUN 10.4 and creatinine 1.2 calcium 7.7. Blood sugar 100. Current medications reviewed. Objective - Vital Signs Vital signs: Vital Signs Temp 98.5 F 04/03/24 17:39 Pulse 75 04/03/24 17:39 Resp 12 04/03/24 17:39 BP 115/60 04/03/24 17:39 Pulse Ox 93 L 04/03/24 17:39 FiO2 Intake & Output 04/03/24 04/03/24 04/04/24 06:59 18:59 06:59 Output Total 1400 1415 Balance -1400 -1415 Output: Drainage 190 Right Abdomen 190 Urine 1400 1225 Other: Voiding Method Indwelling Catheter Indwelling Catheter - Exam PHYSICAL EXAMINATION: Patient is lying in the bed comfortably, no acute distress, awake alert and oriented.. HEENT: Normocephalic. Neck is supple. Pupils reactive. Nostrils clear. Oral cavity is moist. Neck reveals no JVD, carotid bruits, or thyromegaly. CHEST EXAMINATION: Trachea is central. Symmetrical expansion. Lung nicole clear to auscultation and percussion. CARDIAC: Normal S1, S2 with no gallops. No murmurs ABDOMEN: Soft. Bowel sounds present. Right-sided abdominal drain catheter in place, colostomy present.. No organomegaly. No abdominal bruits. Extremities: reveal no edema. No clubbing or cyanosis Neurologically awake, alert, oriented x 2-3 able to move upper extremities. Paraplegic. Skin: No rash or skin lesions. Psychiatric: Coperative. Nonsuicidal anxious. Musculoskeletal: No joint swelling or deformity. Normal range of motion. - Labs CBC & Chem 7: 04/05/24 08:40 04/03/24 05:10 Labs: Abnormal Lab Results - Last 24 Hours (Table) 04/03/24 04/03/24 04/03/24 Range/Units 05:10 05:10 16:25 RBC 3.32 L (4.10-5.20) X 10*6/uL Hgb 9.7 L (12.0-15.0) g/dL Hct 33.0 L (37.2-46.3) % MCV 99.4 H (80.0-97.0) FL MCHC 29.4 L (32.0-37.0) g/dL Eosinophils # 0.75 H (0.04-0.35) X 10*3/uL Est GFR (CKD-EPI) 55 L (>=60) BUN/Creatinine Ratio 8.67 L (12.00-20.00) Ratio POC Glucose (mg/dL) 162 H (70-110) mg/dL Calcium 7.7 L (8.7-10.3) mg/dL 04/03/24 Range/Units 20:22 RBC (4.10-5.20) X 10*6/uL Hgb (12.0-15.0) g/dL Hct (37.2-46.3) % MCV (80.0-97.0) FL MCHC (32.0-37.0) g/dL Eosinophils # (0.04-0.35) X 10*3/uL Est GFR (CKD-EPI) (>=60) BUN/Creatinine Ratio (12.00-20.00) Ratio POC Glucose (mg/dL) 166 H (70-110) mg/dL Calcium (8.7-10.3) mg/dL Microbiology - Last 24 Hours (Table) 04/01/24 18:40 Blood Culture - Preliminary Blood 04/01/24 18:25 Blood Culture - Preliminary Blood Assessment and Plan Assessment: Concern for postoperative pelvic infection serum versus abscess. CT of the abdomen pelvis showed no intra-abdominal abscess. Right abdominal drainage catheter without evidence for organizing fluid collection. History of recent open appendectomy on 03/14/2024. Postoperatively patient was transferred to [facility] as per patient and family request. 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 Seizure disorder GERD Chronic inflammatory demyelinating polyneuritis. History of ESBL UTI Anxiety/depression DVT prophylaxis patient is already on Eliquis GI prophylaxis with PPI Plan: Patient will be continued on IV hydration with normal saline. CT of the abdomen pelvis showed no evidence of abscess. Continue with clindamycin. General surgery is on board. Planning for wound debridement. Continue with home medications and pain management and follow-up closely. Discussed with patient in detail at bedside.
--- NOTE | 2024-04-05 23:08 | P.PN ---
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 Patient is confused at baseline and complete history could not be obtained. Patient was sent to ER due to outpatient abnormal lab workup. Patient was complaining of drainage from his surgical site. Patient was sent to ER due to concern for postoperative pelvic infection seroma versus abscess. CT of the abdomen pelvis showed right abdominal drainage catheter without evidence for organizing fluid collection. Consider removal of drainage catheter. 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 New pneumobilia within the left hepatic lobe. Urinary bladder Calderon catheter in appropriate position. Laboratory data showed WBC 6.35 hemoglobin 10.4 and platelets 339 Sodium 141 potassium 4.7 chloride 105 bicarb is 29.5 BUN 10.6 and creatinine 1.2 and blood sugar 85 alk phos 160 and albumin 2.4 04/03/2024 Patient is resting in bed. Awake alert and oriented x 3. On room air. Still complains of lower abdominal pain. Patient does have JANELLE drain in place with 10 cc overnight. Tolerating regular diet. Patient has been continued on antibiotics, clindamycin. Blood cultures negative so far. Laboratory data showed WBC 5.2 hemoglobin 9.7 and platelets 299 sodium 141 potassium 4.1 chloride 106 bicarb is 29.4 BUN 10.4 and creatinine 1.2 calcium 7.7. Blood sugar 100. 04/04/2024 Patient is currently lying in the bed. Complains of lower abdominal pain. Status post obi removed from the surgical wound yesterday and also with silver packing. JANELLE drain with serous fluid. Afebrile. No nausea vomiting abdominal pain or diarrhea. Tolerating regular diet. Laboratory data is not available today. Wound culture report pending. Current medications reviewed. Objective - Vital Signs Vital signs: Vital Signs Temp 98.3 F 04/04/24 19:30 Pulse 73 04/04/24 19:30 Resp 18 04/04/24 19:30 BP 98/59 04/04/24 19:30 Pulse Ox 91 L 05/20/24 19:30 FiO2 Intake & Output 04/04/24 04/04/24 04/05/24 06:59 18:59 06:59 Intake Total 200 Output Total 9829 394 9805 Balance -3534 -295 Intake: Oral 200 Output: Drainage 40 20 Right Abdomen 40 20 Urine 212 387 5683 Stool 100 100 Other: Voiding Method Indwelling Catheter Indwelling Catheter Indwelling Catheter - Exam PHYSICAL EXAMINATION: Patient is lying in the bed comfortably, no acute distress, awake alert and oriented.. HEENT: Normocephalic. Neck is supple. Pupils reactive. Nostrils clear. Oral cavity is moist. Neck reveals no JVD, carotid bruits, or thyromegaly. CHEST EXAMINATION: Trachea is central. Symmetrical expansion. Lung nicole clear to auscultation and percussion. CARDIAC: Normal S1, S2 with no gallops. No murmurs ABDOMEN: Soft. Bowel sounds present. Right-sided abdominal drain catheter in place, colostomy present.. No organomegaly. No abdominal bruits. Extremities: reveal no edema. No clubbing or cyanosis Neurologically awake, alert, oriented x 2-3 able to move upper extremities. Paraplegic. Skin: No rash or skin lesions. Psychiatric: Coperative. Nonsuicidal anxious. Musculoskeletal: No joint swelling or deformity. Normal range of motion. - Labs CBC & Chem 7: 04/05/24 08:40 04/03/24 05:10 Labs: Abnormal Lab Results - Last 24 Hours (Table) 04/04/24 04/04/24 04/04/24 Range/Units 06:06 16:58 19:59 POC Glucose (mg/dL) 64 L 161 H 185 H (70-110) mg/dL Microbiology - Last 24 Hours (Table) 04/03/24 10:40 Gram Stain - Preliminary Abdomen 04/01/24 18:40 Blood Culture - Preliminary Blood 04/01/24 18:25 Blood Culture - Preliminary Blood Assessment and Plan Assessment: Concern for postoperative pelvic infection serum versus abscess. CT of the abdomen pelvis showed no intra-abdominal abscess. Right abdominal drainage catheter without evidence for organizing fluid collection. Status post obi removal on 03/04/2024. History of recent open appendectomy on 03/14/2024. Postoperatively patient was transferred to [facility] as per patient and family request. 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 Seizure disorder GERD Chronic inflammatory demyelinating polyneuritis. History of ESBL UTI Anxiety/depression DVT prophylaxis patient is already on Eliquis GI prophylaxis with PPI Plan: Patient will be continued on IV hydration with normal saline. Tolerating regular diet. CT of the abdomen pelvis showed no evidence of abscess. Continue with cli ndamycin. Follow-up wound cultures. General surgery is on board. Planning for wound debridement. Continue with home medications and pain management and follow-up closely. Discussed with patient in detail at bedside.
[2024-04-06 06:24] LABS: Glucose,Whole Blood 64 mg/dL (70-110)
[2024-04-06 06:24] LABS: Glucose,Whole Blood 64 mg/dL (70-110)
[2024-04-06 06:28] LABS: Glucose,Whole Blood 98 mg/dL (70-110)
[2024-04-06 08:45] LABS: HCT 36.8 % (37.2-46.3); HGB 11.3 g/dL (12.0-15.0); MCH 29.7 pg (27.0-32.0); MCHC 30.7 g/dL (32.0-37.0); MCV 96.8 FL (80.0-97.0); NRBC Per 100 WBC 0 X 10*3/uL (0.00-0.01); Platelet Count 247 X 10*3/uL (140-440); RDW 13.8 % (11.5-14.5); WBC 5.95 X 10*3/uL (4.50-10.00)
[2024-04-06 08:46] LABS: Basophils # (A) 0.02 X 10*3/uL (0.00-0.10); Basophils % (A) 0.3 %; Eosinophils # (A) 0.23 X 10*3/uL (0.04-0.35); Eosinophils % (A) 3.9 %; Lymphocytes # (A) 2.48 X 10*3/uL (0.90-5.00); Lymphocytes % (A) 41.7 %; Monocytes # (A) 0.48 X 10*3/uL (0.20-1.00); Monocytes % (A) 8.1 %; Neutrophils # (A) 2.73 X 10*3/uL (1.80-7.70); Neutrophils % (A) 45.8 %
[2024-04-06 08:47] LABS: BUN/Creat Ratio 7.42 Ratio (12.00-20.00); Blood Urea Nitrogen 8.9 mg/dL (9.0-27.0); Carbon Dioxide 29.1 mmol/L (21.6-31.8); Chloride 107 mmol/L (96-109); Glucose 64 mg/dL (70-110); Potassium 4.2 mmol/L (3.5-5.5); Sodium 142 mmol/L (135-145)
[2024-04-06 11:13] LABS: Glucose,Whole Blood 127 mg/dL (70-110)
[2024-04-06] MEDS ORDERED: VANCOMYCIN IV PER PHARMACY 1 EACH MISC MISCELLANE PRN (11:39)
[2024-04-06] MEDS: VANCOMYCIN 2,000 MG in SODIUM CHLORIDE 0.9% 500 ML 500 ML IVPB SCH (12:41)
--- NOTE | 2024-04-06 14:15 | P.PN ---
Subjective Progress Note Date: 04/06/24 CHIEF COMPLAINT: Wound infection HISTORY OF PRESENT ILLNESS: Patient with drainage from the inferior portion of her incision. Patient reports a slight decrease in the pain since JANELLE drain removed yesterday. Afebrile. WBC 5.95 Patient seen and examined with Dr. Garcia PHYSICAL EXAM: VITAL SIGNS: Reviewed. GENERAL: Well-developed in no acute distress. ABDOMEN: Soft. Obese nondistended. Incisional purulent drainage distal aspect of incision. No erythema. NEUROLOGIC: Alert and oriented. Cranial nerves II through XII grossly intact. ASSESSMENT: 1. Abdominal wall incisional infection with purulent drainage. 2. Status post open appendectomy on 03/14/2024 for acute ruptured appendicitis PLAN: -Patient can be discharged from surgical standpoint when medically cleared -Discharge antibiotics per infectious disease -Will have nursing staff remove remaining obi from incision site -Continue local wound care Physician Hide Handler note has been reviewed by physician. Signing provider agrees with the documented findings, assessment, and plan of care. Objective - Vital Signs Vital signs: Vital Signs Temp 97.9 F 04/06/24 07:40 Pulse 65 04/06/24 07:50 Resp 16 04/06/24 07:50 BP 106/61 04/06/24 07:40 Pulse Ox 95 04/06/24 07:40 FiO2 Intake & Output 04/05/24 04/06/24 04/06/24 18:59 06:59 18:59 Output Total 2330 2500 100 Balance -2330 -2500 -100 Output: Drainage 30 Right Abdomen 30 Urine 2300 2500 Stool 100 Other: Voiding Method Indwelling Catheter Indwelling Catheter Indwelling Catheter - Labs CBC & Chem 7: 04/06/24 06:01 04/06/24 06:01 Labs: Abnormal Lab Results - Last 24 Hours (Table) 04/05/24 04/05/24 04/06/24 Range/Units 16:12 19:20 05:43 RBC (4.10-5.20) X 10*6/uL Hgb (12.0-15.0) g/dL Hct (37.2-46.3) % MCHC (32.0-37.0) g/dL BUN (9.0-27.0) mg/dL Est GFR (CKD-EPI) (>=60) BUN/Creatinine Ratio (12.00-20.00) Ratio Glucose (70-110) mg/dL POC Glucose (mg/dL) 161 H 178 H 64 L (70-110) mg/dL Calcium (8.7-10.3) mg/dL 04/06/24 04/06/24 04/06/24 Range/Units 06:01 06:01 06:03 RBC 3.80 L (4.10-5.20) X 10*6/uL Hgb 11.3 L (12.0-15.0) g/dL Hct 36.8 L (37.2-46.3) % MCHC 30.7 L (32.0-37.0) g/dL BUN 8.9 L (9.0-27.0) mg/dL Est GFR (CKD-EPI) 55 L (>=60) BUN/Creatinine Ratio 7.42 L (12.00-20.00) Ratio Glucose 64 L (70-110) mg/dL POC Glucose (mg/dL) 64 L (70-110) mg/dL Calcium 8.0 L (8.7-10.3) mg/dL 04/06/24 Range/Units 11:12 RBC (4.10-5.20) X 10*6/uL Hgb (12.0-15.0) g/dL Hct (37.2-46.3) % MCHC (32.0-37.0) g/dL BUN (9.0-27.0) mg/dL Est GFR (CKD-EPI) (>=60) BUN/Creatinine Ratio (12.00-20.00) Ratio Glucose (70-110) mg/dL POC Glucose (mg/dL) 127 H (70-110) mg/dL Calcium (8.7-10.3) mg/dL Microbiology - Last 24 Hours (Table) 04/03/24 10:40 Gram Stain - Final Abdomen Wound Culture - Final Enterococcus raffinosus
[2024-04-06 16:23] LABS: Glucose,Whole Blood 135 mg/dL (70-110)
[2024-04-06 20:22] LABS: Glucose,Whole Blood 134 mg/dL (70-110)
--- NOTE | 2024-04-06 22:16 | P.CONS ---
History of Present Illness - Reason for Consult Consult date: 04/06/24 Positive wound culture Requesting physician: Angelika Archer - Chief Complaint Abdominal pain and drainage x few days - History of Present Illness Patient is a 48-year-old female with multiple comorbidities including diabetes mellitus reflux seizure disorder atrial fibrillation patient was recently admitted to this facility in this patient who is status post open appendectomy for ruptured appendicitis patient subsequently was transferred to [facility] per request of the patient power of commonwealth attorney patient is not very clear what happened at that facility however she is telling me that she was not sent home on any antibiotics patient was receiving meropenem when she was with us at this facility patient now brought back to the hospital 5 days ago on concerning for drainage from her abdominal incision apparently per the ER documentation the patient was sent to the ER by Dr. Garcia from the office, patient has been complaining of lower abdominal pain describing it to be sharp moderate intensity without radiation also complaining of purulent drainage from the incision site patient on presentation to the hospital was afebrile she did have low-grade fever 100.2 on 04/04/2024 patient was not tachycardic hypotensive or hypoxic and no need for supplemental oxygen patient did have a normal white count during this hospital stay creatinine is 1.2 liver isms are normal patient did have a CT abdominal pelvis did not show any intra-abdominal abscess patient was noticed to have some purulent drainage from the lower incision which has been cultured with cultures coming back positive with Enterococcus that is penicillin resistant but vancomycin sensitive infectious was consulted today for further management of antibiotic therapy in this patient who has been on clindamycin since admission to the hospital Review of Systems Positive point and negatives has been mentioned in the HPI, complete review of systems was performed and all other systems are negative Past Medical History Past Medical History: Atrial Fibrillation, Diabetes Mellitus, GERD/Reflux, Seizure Disorder Additional Past Medical History / Comment(s): admitted to [facility] May 2022 for sepsis/uti,acute renal failure. 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 uses a beata lift,goff catheter,colostomy,chronic inflammatory demyelinating polyneuritis,anemia,date of last seizure unk History of Any Multi-Drug Resistant Organisms: ESBL Year Discovered:: 11/17/23 ESBL E.coli MDRO Source:: Urine Additional Past Surgical History / Comment(s): Urethral stents x 2 Past Anesthesia/Blood Transfusion Reactions: No Reported Reaction Smoking Status: Former smoker Past Alcohol Use History: None Reported Past Drug Use History: None Reported - Past Family History Father History Unknown: Yes Medications and Allergies Home Medications Medication Instructions Recorded Confirmed Type Acetaminophen Tab [Tylenol] 650 mg PO Q6H PRN 06/18/22 04/01/24 History Apixaban [Eliquis] 5 mg PO BID 06/18/22 04/01/24 History Baclofen 5 mg PO BID 06/18/22 04/01/24 History Multivitamins, Thera [Multivitamin 1 tab PO DAILY 06/18/22 04/01/24 History (formulary)] Oxybutynin Chloride [oxyBUTYnin 15 mg PO DAILY 06/18/22 04/01/24 History chloride ER] Cholecalciferol [Vitamin D3 (25 25 mcg PO DAILY 11/19/23 04/01/24 History Mcg = 1000 Iu)] Docusate Sodium [Dok] 100 mg PO DAILY PRN 11/19/23 04/01/24 History Famotidine [Pepcid] 20 mg PO DAILY 11/19/23 04/01/24 History Insulin Lispro [humaLOG Kwikpen] See Protocol SQ ACHS 11/19/23 04/01/24 History Magnesium Oxide [Mag-Ox] 400 mg PO BID 11/19/23 04/01/24 History Semaglutide [Ozempic] 0.5 mg SQ SA 11/19/23 04/01/24 History Suvorexant [Belsomra] 15 mg PO HS 11/19/23 04/01/24 History Venlafaxine HCl ER [Effexor XR] 37.5 mg PO DAILY 11/19/23 04/01/24 History Ondansetron [Zofran] 4 mg PO Q8H PRN 03/13/24 04/01/24 History levETIRAcetam [Keppra] 750 mg PO BID 03/13/24 04/01/24 History Ascorbic Acid [Vitamin C] 500 mg PO BID 04/01/24 04/01/24 History Cranberry Fruit [Cranberry] 465 mg PO BID 04/01/24 04/01/24 History Ergocalciferol (Vitamin D2) 1,250 mcg PO WE 04/01/24 04/01/24 History [Drisdol (50,000 Iu)] Ferrous Sulfate [Iron (65 MG 325 mg PO BID 04/01/24 04/01/24 History Elemental)] Flecainide Acetate [Tambocor] 50 mg PO BID 04/01/24 04/01/24 History Folic Acid 1 mg PO DAILY 04/01/24 04/01/24 History Insulin Glargine-Yfgn [Semglee 15 unit SQ BID 04/01/24 04/01/24 History (Yfgn) Pen] Menthol-Zinc Oxide Oint 1 applic TOPICAL DAILY PRN 04/01/24 04/01/24 History [Calmoseptine Ointment] Metoprolol Succinate (ER) [Toprol 12.5 mg PO DAILY 04/01/24 04/01/24 History XL] Sennosides [Senokot] 17.2 mg PO BID PRN 04/01/24 04/01/24 History Gabapentin [Neurontin] 300 mg PO TID@0600,1400,2200 #6 cap 04/08/24 Rx Vancomycin 2,000 mg IVPB Q12H 14 Days #28 each 04/08/24 Rx oxyCODONE HCL [oxyCODONE HCL (IR)] 10 mg PO Q4H PRN #4 tab 04/08/24 Rx Allergies Allergy/AdvReac Type Severity Reaction Status Date / Time shellfish derived [Shellfish] Allergy Unknown Verified 04/01/24 17:53 strawberry Allergy Unknown Verified 04/01/24 17:53 Physical Exam Vitals: Vital Signs Temp Pulse Resp BP Pulse Ox 04/06/24 07:50 65 16 04/06/24 07:40 97.9 F 65 16 106/61 95 04/06/24 02:00 98.4 F 63 108/72 95 04/05/24 20:00 98.5 F 65 103/57 92 L 04/05/24 13:36 97.6 F 71 16 142/86 95 Intake and Output 04/05/24 04/06/24 04/06/24 22:59 06:59 14:59 Output Total 2330 2500 100 Balance -2330 -2500 -100 Output: Drainage 30 Right Abdomen 30 Urine 2300 2500 Stool 100 Other: Voiding Method Indwelling Catheter Indwelling Catheter GENERAL DESCRIPTION: Middle-aged female lying in bed, no distress. No tachypnea or accessory muscle of respiration use. HEENT: Shows Pallor , no scleral icterus. Oral mucous membrane is dry. NECK: Trachea central, no thyromegaly. LUNGS: Unlabored breathing. Clear to auscultation anteriorly. No wheeze or crackle. HEART: S1, S2, regular rate and rhythm. No loud murmur ABDOMEN: Soft, did have some purulent drainage from the lower end of the incision mild tenderness EXTREMITIES: No edema of feet. SKIN: No rash, no masses palpable. NEUROLOGICAL: The patient is awake, alert, oriented x3, mood and affect normal. Results CBC & Chem 7: 04/07/24 05:45 04/08/24 05:31 Labs: Abnormal Lab Results - Last 24 Hours (Table) 04/05/24 04/05/24 04/06/24 Range/Units 16:12 19:20 05:43 RBC (4.10-5.20) X 10*6/uL Hgb (12.0-15.0) g/dL Hct (37.2-46.3) % MCHC (32.0-37.0) g/dL BUN (9.0-27.0) mg/dL Est GFR (CKD-EPI) (>=60) BUN/Creatinine Ratio (12.00-20.00) Ratio Glucose (70-110) mg/dL POC Glucose (mg/dL) 161 H 178 H 64 L (70-110) mg/dL Calcium (8.7-10.3) mg/dL 04/06/24 04/06/24 04/06/24 Range/Units 06:01 06:01 06:03 RBC 3.80 L (4.10-5.20) X 10*6/uL Hgb 11.3 L (12.0-15.0) g/dL Hct 36.8 L (37.2-46.3) % MCHC 30.7 L (32.0-37.0) g/dL BUN 8.9 L (9.0-27.0) mg/dL Est GFR (CKD-EPI) 55 L (>=60) BUN/Creatinine Ratio 7.42 L (12.00-20.00) Ratio Glucose 64 L (70-110) mg/dL POC Glucose (mg/dL) 64 L (70-110) mg/dL Calcium 8.0 L (8.7-10.3) mg/dL 04/06/24 Range/Units 11:12 RBC (4.10-5.20) X 10*6/uL Hgb (12.0-15.0) g/dL Hct (37.2-46.3) % MCHC (32.0-37.0) g/dL BUN (9.0-27.0) mg/dL Est GFR (CKD-EPI) (>=60) BUN/Creatinine Ratio (12.00-20.00) Ratio Glucose (70-110) mg/dL POC Glucose (mg/dL) 127 H (70-110) mg/dL Calcium (8.7-10.3) mg/dL Microbiology - Last 24 Hours (Table) 04/03/24 10:40 Gram Stain - Final Abdomen Wound Culture - Final Enterococcus raffinosus Assessment and Plan (1) Abdominal wall abscess Current Visit: Yes Status: Acute Code(s): L02.211 - CUTANEOUS ABSCESS OF ABDOMINAL WALL SNOMED Code(s): 50745478 Plan: 1patient presented to hospital with abdominal pain and some purulent drainage from the incision in this patient who did not have any fever during this hospital stay white count has been normal CT abdominal pelvis did not show any intra-abdominal abscess however the patient did have some purulent drainage from the lower end of the incision which has been cultured and is growing drug- resistant Enterococcus likely representing abdominal wall abscess 2-we will discontinue clindamycin 3-start the patient on vancomycin pharmacy to dose while watching her kidney function and clinical course closely We will follow on clinical condition and cultures to further adjust medication if needed Thank you for this consultation we will follow the patient along with you Dictation was produced using [employer] dictation software. please excuse any grammatical, word or spelling errors. Time with Patient: Greater than 30
[2024-04-07 05:47] LABS: Glucose,Whole Blood 124 mg/dL (70-110)
[2024-04-07 11:01] LABS: Basophils # (A) 0.04 X 10*3/uL (0.00-0.10); Basophils % (A) 0.7 %; Eosinophils # (A) 0.36 X 10*3/uL (0.04-0.35); Eosinophils % (A) 6.4 %; HCT 36.9 % (37.2-46.3); HGB 11.1 g/dL (12.0-15.0); Lymphocytes # (A) 1.67 X 10*3/uL (0.90-5.00); Lymphocytes % (A) 29.6 %; MCH 30.1 pg (27.0-32.0); MCHC 30.1 g/dL (32.0-37.0); Mean Platelet Volume 10.8 FL (9.5-12.2); Monocytes # (A) 0.35 X 10*3/uL (0.20-1.00); Monocytes % (A) 6.2 %; NRBC Per 100 WBC 0.02 X 10*3/uL (0.00-0.01); Neutrophils # (A) 3.22 X 10*3/uL (1.80-7.70); Neutrophils % (A) 56.9 %; Platelet Count 197 X 10*3/uL (140-440); RBC 3.69 X 10*6/uL (4.10-5.20); RDW 14.1 % (11.5-14.5); WBC 5.65 X 10*3/uL (4.50-10.00)
[2024-04-07 11:13] LABS: BUN/Creat Ratio 7.64 Ratio (12.00-20.00); Blood Urea Nitrogen 8.4 mg/dL (9.0-27.0); Glucose 134 mg/dL (70-110)
[2024-04-07 11:14] LABS: ALT 6 U/L (8-44); AST 15 U/L (13-35); Albumin 2.3 g/dL (3.8-4.9); Albumin/Globulin Ratio 0.74 Ratio (1.60-3.17); Alkaline Phosphatase 112 U/L (41-126); Calcium 7.9 mg/dL (8.7-10.3); Chloride 106 mmol/L (96-109); Globulin 3.1 g/dL (1.6-3.3); Potassium 4.7 mmol/L (3.5-5.5); Sodium 140 mmol/L (135-145); Total Bilirubin <0.2 mg/dL (0.3-1.2); Total Protein 5.4 g/dL (6.2-8.2)
[2024-04-07 11:35] LABS: Glucose,Whole Blood 95 mg/dL (70-110)
--- NOTE | 2024-04-07 12:43 | P.PN ---
Subjective Progress Note Date: 04/07/24 patient [place] stable. Her obi removed yesterday. She has some minimal abdominal pain. Objective - Vital Signs Vital signs: Vital Signs Temp 97.9 F 04/07/24 06:55 Pulse 62 04/07/24 06:55 Resp 18 04/07/24 06:55 BP 100/64 04/07/24 06:55 Pulse Ox 93 L 04/07/24 06:55 FiO2 Intake & Output 04/06/24 04/07/24 04/07/24 18:59 06:59 18:59 Output Total 3900 1575 Balance -3900 -1575 Weight 121.109 kg Output: Urine 3800 1575 Stool 100 Other: Voiding Method Indwelling Catheter Indwelling Catheter # Bowel Movements 300 - Labs CBC & Chem 7: 04/07/24 05:45 04/07/24 05:45 Labs: Abnormal Lab Results - Last 24 Hours (Table) 04/06/24 04/06/24 04/07/24 Range/Units 16:22 20:20 05:44 RBC (4.10-5.20) X 10*6/uL Hgb (12.0-15.0) g/dL Hct (37.2-46.3) % MCV (80.0-97.0) FL MCHC (32.0-37.0) g/dL Eosinophils # (0.04-0.35) X 10*3/uL NRBC/100 WBC Diff (0.00-0.01) X 10*3/uL BUN (9.0-27.0) mg/dL BUN/Creatinine Ratio (12.00-20.00) Ratio Glucose (70-110) mg/dL POC Glucose (mg/dL) 135 H 134 H 124 H (70-110) mg/dL Calcium (8.7-10.3) mg/dL Total Bilirubin (0.3-1.2) mg/dL ALT (8-44) U/L C-Reactive Protein (0.00-0.80) mg/dL Total Protein (6.2-8.2) g/dL Albumin (3.8-4.9) g/dL Albumin/Globulin Ratio (1.60-3.17) Ratio 04/07/24 04/07/24 Range/Units 05:45 05:45 RBC 3.69 L (4.10-5.20) X 10*6/uL Hgb 11.1 L (12.0-15.0) g/dL Hct 36.9 L (37.2-46.3) % MCV 100.0 H (80.0-97.0) FL MCHC 30.1 L (32.0-37.0) g/dL Eosinophils # 0.36 H (0.04-0.35) X 10*3/uL NRBC/100 WBC Diff 0.02 H (0.00-0.01) X 10*3/uL BUN 8.4 L (9.0-27.0) mg/dL BUN/Creatinine Ratio 7.64 L (12.00-20.00) Ratio Glucose 134 H (70-110) mg/dL POC Glucose (mg/dL) (70-110) mg/dL Calcium 7.9 L (8.7-10.3) mg/dL Total Bilirubin <0.2 L (0.3-1.2) mg/dL ALT 6 L (8-44) U/L C-Reactive Protein 1.30 H (0.00-0.80) mg/dL Total Protein 5.4 L (6.2-8.2) g/dL Albumin 2.3 L (3.8-4.9) g/dL Albumin/Globulin Ratio 0.74 L (1.60-3.17) Ratio Microbiology - Last 24 Hours (Table) 04/01/24 18:40 Blood Culture - Final Blood 04/01/24 18:25 Blood Culture - Final Blood Assessment and Plan Plan: patient's abdominal wound looks well. There is no significant infection. The patient received local wound care. She is stable for discharge from a surgical standpoint.
--- NOTE | 2024-04-07 14:56 | P.PN ---
Subjective Progress Note Date: 04/07/24 Principal diagnosis: Reason for follow-up is positive abdominal wound culture Patient is a 48-year-old female with multiple comorbidities including diabetes mellitus reflux seizure disorder atrial fibrillation patient was recently admitted to this facility in this patient who is status post open appendectomy for ruptured appendicitis, now back to the hospital concerning for abdominal wall infection CT was negative for any intra-abdominal abscess did have some purulent drainage did grow Enterococcus raffinosus. On today's evaluation that is 04/07/2024, patient has been afebrile, patient is breathing comfortably and is currently on room air, patient denies having any significant cough no chest pain shortness of breath, patient denies nausea vomiting or diarrhea however still complaining of abdominal pain and drainage from the lower end of the incision Patient white count is 5.65, creatinine is 1.1 Objective - Vital Signs Vital signs: Vital Signs Temp 97.9 F 04/07/24 06:55 Pulse 62 04/07/24 06:55 Resp 18 04/07/24 06:55 BP 100/64 04/07/24 06:55 Pulse Ox 93 L 04/07/24 06:55 FiO2 Intake & Output 04/06/24 04/07/24 04/07/24 18:59 06:59 18:59 Output Total 3900 1575 Balance -3900 -1575 Weight 121.109 kg Output: Urine 3800 1575 Stool 100 Other: Voiding Method Indwelling Catheter Indwelling Catheter # Bowel Movements 300 - Exam GENERAL DESCRIPTION: Middle-aged female lying in bed in no distress RESPIRATORY SYSTEM: Unlabored breathing , decreased breath sounds at bases HEART: S1 S2 regular rate and rhythm , ABDOMEN: Soft , mild tenderness, did have some purulent drainage from the lower end of the incision EXTREMITIES: No edema feet - Labs CBC & Chem 7: 04/07/24 05:45 04/07/24 05:45 Labs: Abnormal Lab Results - Last 24 Hours (Table) 04/06/24 04/06/24 04/07/24 Range/Units 16:22 20:20 05:44 RBC (4.10-5.20) X 10*6/uL Hgb (12.0-15.0) g/dL Hct (37.2-46.3) % MCV (80.0-97.0) FL MCHC (32.0-37.0) g/dL Eosinophils # (0.04-0.35) X 10*3/uL NRBC/100 WBC Diff (0.00-0.01) X 10*3/uL BUN (9.0-27.0) mg/dL BUN/Creatinine Ratio (12.00-20.00) Ratio Glucose (70-110) mg/dL POC Glucose (mg/dL) 135 H 134 H 124 H (70-110) mg/dL Calcium (8.7-10.3) mg/dL Total Bilirubin (0.3-1.2) mg/dL ALT (8-44) U/L C-Reactive Protein (0.00-0.80) mg/dL Total Protein (6.2-8.2) g/dL Albumin (3.8-4.9) g/dL Albumin/Globulin Ratio (1.60-3.17) Ratio 04/07/24 04/07/24 Range/Units 05:45 05:45 RBC 3.69 L (4.10-5.20) X 10*6/uL Hgb 11.1 L (12.0-15.0) g/dL Hct 36.9 L (37.2-46.3) % MCV 100.0 H (80.0-97.0) FL MCHC 30.1 L (32.0-37.0) g/dL Eosinophils # 0.36 H (0.04-0.35) X 10*3/uL NRBC/100 WBC Diff 0.02 H (0.00-0.01) X 10*3/uL BUN 8.4 L (9.0-27.0) mg/dL BUN/Creatinine Ratio 7.64 L (12.00-20.00) Ratio Glucose 134 H (70-110) mg/dL POC Glucose (mg/dL) (70-110) mg/dL Calcium 7.9 L (8.7-10.3) mg/dL Total Bilirubin <0.2 L (0.3-1.2) mg/dL ALT 6 L (8-44) U/L C-Reactive Protein 1.30 H (0.00-0.80) mg/dL Total Protein 5.4 L (6.2-8.2) g/dL Albumin 2.3 L (3.8-4.9) g/dL Albumin/Globulin Ratio 0.74 L (1.60-3.17) Ratio Microbiology - Last 24 Hours (Table) 04/01/24 18:40 Blood Culture - Final Blood 04/01/24 18:25 Blood Culture - Final Blood Assessment and Plan (1) Abdominal wall abscess Current Visit: Yes Status: Acute Code(s): L02.211 - CUTANEOUS ABSCESS OF ABDOMINAL WALL SNOMED Code(s): 01570763 Plan: 1patient presented to hospital with abdominal pain and some purulent drainage from the incision in this patient who did not have any fever during this hospital stay white count has been normal CT abdominal pelvis did not show any intra-abdominal abscess however the patient did have some purulent drainage from the lower end of the incision which has been cultured and is growing drug- resistant Enterococcus likely representing abdominal wall abscess 2-patient to continue with vancomycin pharmacy to dose as the only oral option is Zyvox however cannot be used as the patient is on Effexor we will order PICC line for short course of IV antibiotic therapy on discharge questions concerns answered her care was also discussed with her sister Karolina on the phone per patient request Dictation was produced using [employer] dictation software. please excuse any grammatical, word or spelling errors. Time with Patient: Less than 30
--- NOTE | 2024-04-07 16:02 | XR ---
EXAMINATION TYPE: XR chest 1V confirm line [facility] DATE OF EXAM: 04/07/2024 COMPARISON: NONE HISTORY: PICC line placement TECHNIQUE: Single frontal view of the chest is obtained. FINDINGS: There is a PICC line entering the left upper extremity and terminating in the SVC/RA junction. There is moderate cardiomegaly. There is no pulmonary vascular congestion or interstitial edema. There is no airspace consolidation or abnormal interstitial density. There is no pleural effusion or pneumothorax. IMPRESSION: 1. Moderate cardiomegaly but no definite acute cardiopulmonary disease. 2. Left-sided PICC line tip in the SVC/RA junction.
[2024-04-07 16:36] LABS: Glucose,Whole Blood 130 mg/dL (70-110)
[2024-04-07 20:25] LABS: Glucose,Whole Blood 183 mg/dL (70-110)
[2024-04-08 05:53] LABS: Glucose,Whole Blood 85 mg/dL (70-110)
[2024-04-08 06:06] LABS: African American GFR (CKD) 67 (>60 ml/min/1.73 sqM); Non-African American GFR(CKD) 58 (>60 ml/min/1.73 sqM)
--- NOTE | 2024-04-08 09:00 | P.PN ---
Subjective Progress Note Date: 04/08/24 the patient [place] stable. She states she feels better. On exam vital signs are still. Abdomen soft. Wound is clean. Patient is continue to receive wound care for wound infection after perforated appendicitis. Patient is stable from a surgical standpoint. She can be discharged home per the medical service. Objective - Vital Signs Vital signs: Vital Signs Temp 97.9 F 04/08/24 01:25 Pulse 60 04/08/24 01:25 Resp 16 04/08/24 01:25 BP 96/56 04/08/24 01:25 Pulse Ox 92 L 04/08/24 01:25 FiO2 Intake & Output 04/07/24 04/08/24 04/08/24 18:59 06:59 18:59 Output Total 900 1350 Balance -900 -1350 Output: Urine 800 1350 Stool 100 Other: Voiding Method Indwelling Catheter Indwelling Catheter # Bowel Movements 0 - Labs CBC & Chem 7: 04/07/24 05:45 04/08/24 05:31 Labs: Abnormal Lab Results - Last 24 Hours (Table) 04/07/24 04/07/24 04/07/24 Range/Units 05:45 05:45 16:35 RBC 3.69 L (4.10-5.20) X 10*6/uL Hgb 11.1 L (12.0-15.0) g/dL Hct 36.9 L (37.2-46.3) % MCV 100.0 H (80.0-97.0) FL MCHC 30.1 L (32.0-37.0) g/dL Eosinophils # 0.36 H (0.04-0.35) X 10*3/uL NRBC/100 WBC Diff 0.02 H (0.00-0.01) X 10*3/uL BUN 8.4 L (9.0-27.0) mg/dL Creatinine (0.52-1.04) mg/dL BUN/Creatinine Ratio 7.64 L (12.00-20.00) Ratio Glucose 134 H (70-110) mg/dL POC Glucose (mg/dL) 130 H (70-110) mg/dL Calcium 7.9 L (8.7-10.3) mg/dL Total Bilirubin <0.2 L (0.3-1.2) mg/dL ALT 6 L (8-44) U/L C-Reactive Protein 1.30 H (0.00-0.80) mg/dL Total Protein 5.4 L (6.2-8.2) g/dL Albumin 2.3 L (3.8-4.9) g/dL Albumin/Globulin Ratio 0.74 L (1.60-3.17) Ratio 04/07/24 04/08/24 Range/Units 20:20 05:31 RBC (4.10-5.20) X 10*6/uL Hgb (12.0-15.0) g/dL Hct (37.2-46.3) % MCV (80.0-97.0) FL MCHC (32.0-37.0) g/dL Eosinophils # (0.04-0.35) X 10*3/uL NRBC/100 WBC Diff (0.00-0.01) X 10*3/uL BUN (9.0-27.0) mg/dL Creatinine 1.12 H (0.52-1.04) mg/dL BUN/Creatinine Ratio (12.00-20.00) Ratio Glucose (70-110) mg/dL POC Glucose (mg/dL) 183 H (70-110) mg/dL Calcium (8.7-10.3) mg/dL Total Bilirubin (0.3-1.2) mg/dL ALT (8-44) U/L C-Reactive Protein (0.00-0.80) mg/dL Total Protein (6.2-8.2) g/dL Albumin (3.8-4.9) g/dL Albumin/Globulin Ratio (1.60-3.17) Ratio Microbiology - Last 24 Hours (Table) 04/01/24 18:40 Blood Culture - Final Blood 04/01/24 18:25 Blood Culture - Final Blood
--- NOTE | 2024-04-08 09:07 | P.PN ---
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 Patient is confused at baseline and complete history could not be obtained. Patient was sent to ER due to outpatient abnormal lab workup. Patient was complaining of drainage from his surgical site. Patient was sent to ER due to concern for postoperative pelvic infection seroma versus abscess. CT of the abdomen pelvis showed right abdominal drainage catheter without evidence for organizing fluid collection. Consider removal of drainage catheter. 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 New pneumobilia within the left hepatic lobe. Urinary bladder Calderon catheter in appropriate position. Laboratory data showed WBC 6.35 hemoglobin 10.4 and platelets 339 Sodium 141 potassium 4.7 chloride 105 bicarb is 29.5 BUN 10.6 and creatinine 1.2 and blood sugar 85 alk phos 160 and albumin 2.4 04/03/2024 Patient is resting in bed. Awake alert and oriented x 3. On room air. Still complains of lower abdominal pain. Patient does have JANELLE drain in place with 10 cc overnight. Tolerating regular diet. Patient has been continued on antibiotics, clindamycin. Blood cultures negative so far. Laboratory data showed WBC 5.2 hemoglobin 9.7 and platelets 299 sodium 141 potassium 4.1 chloride 106 bicarb is 29.4 BUN 10.4 and creatinine 1.2 calcium 7.7. Blood sugar 100. 04/04/2024 Patient is currently lying in the bed. Complains of lower abdominal pain. Status post obi removed from the surgical wound yesterday and also with silver packing. JANELLE drain with serous fluid. Afebrile. No nausea vomiting abdominal pain or diarrhea. Tolerating regular diet. Laboratory data is not available today. Wound culture report pending. 04/05/2024 Patient is lying in the bed. Awake alert and oriented. Complains of abdominal pain. JANELLE drain To be removed today. Patient has been afebrile. Tolerating oral diet. Ostomy output present. No other acute overnight issues. Laboratory data showed WBC 5.9 hemoglobin 11.3 and platelets 247 sodium 142 potassium 4.2 chloride 107 bicarb is 21.1 BUN 8.9 and creatinine 1.2 and blood sugar 64. Calcium 8.0. Wound cultures growing Enterococcus. ID was consulted to titrate on antibiotics. Patient is on clindamycin. Changed to vancomycin. Follow-up final culture report.. Current medications reviewed. Objective - Vital Signs Vital signs: Vital Signs Temp 98.5 F 04/05/24 20:00 Pulse 65 04/05/24 20:00 Resp 16 04/05/24 13:36 BP 103/57 04/05/24 20:00 Pulse Ox 92 L 04/05/24 20:00 FiO2 Intake & Output 04/05/24 04/05/24 04/06/24 06:59 18:59 06:59 Output Total 4580 2330 Balance -4580 -2330 Output: Drainage 30 30 Right Abdomen 30 30 Urine 4550 2300 Other: Voiding Method Indwelling Catheter Indwelling Catheter - Exam PHYSICAL EXAMINATION: Patient is lying in the bed comfortably, no acute distress, awake alert and oriented.. HEENT: Normocephalic. Neck is supple. Pupils reactive. Nostrils clear. Oral cavity is moist. Neck reveals no JVD, carotid bruits, or thyromegaly. CHEST EXAMINATION: Trachea is central. Symmetrical expansion. Lung nicole clear to auscultation and percussion. CARDIAC: Normal S1, S2 with no gallops. No murmurs ABDOMEN: Soft. Bowel sounds present. Right-sided abdominal drain catheter in place, colostomy present.. No organomegaly. No abdominal bruits. Extremities: reveal no edema. No clubbing or cyanosis Neurologically awake, alert, oriented x 2-3 able to move upper extremities. Paraplegic. Skin: No rash or skin lesions. Psychiatric: Coperative. Nonsuicidal anxious. Musculoskeletal: No joint swelling or deformity. Normal range of motion. - Labs CBC & Chem 7: 04/07/24 05:45 04/08/24 05:31 Labs: Abnormal Lab Results - Last 24 Hours (Table) 04/05/24 04/05/24 04/05/24 Range/Units 08:40 16:12 19:20 RBC 3.59 L (3.80-5.40) m/uL Hgb 10.8 L (11.4-16.0) gm/dL MCHC 30.5 L (31.0-37.0) g/dL POC Glucose (mg/dL) 161 H 178 H (70-110) mg/dL Microbiology - Last 24 Hours (Table) 04/01/24 18:40 Blood Culture - Preliminary Blood 04/01/24 18:25 Blood Culture - Preliminary Blood 04/03/24 10:40 Gram Stain - Preliminary Abdomen Wound Culture - Preliminary Assessment and Plan Assessment: Concern for postoperative pelvic infection serum versus abscess. CT of the abdomen pelvis showed no intra-abdominal abscess. Right abdominal drainage catheter without evidence for organizing fluid collection. Status post obi removal on 03/04/2024. History of recent open appendectomy on 03/14/2024. Postoperatively patient was transferred to [facility] as per patient and family request. 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 Seizure disorder GERD Chronic inflammatory demyelinating polyneuritis. History of ESBL UTI Anxiety/depression DVT prophylaxis patient is already on Eliquis GI prophylaxis with PPI Plan: Patient was continued on IV hydration with normal saline.. Tolerating regular diet. CT of the abdomen pelvis showed no evidence of abscess. Continue with clindamycin. Wound cultures growing Enterococcus species. ID consulted for further evaluation and antibiotic management. General surgery is on board. Obi removed.. Continue with home medications and pain management and follow-up closely. Discussed with patient in detail at bedside. Time with Patient: Greater than 30
--- NOTE | 2024-04-08 09:10 | P.PN ---
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 Patient is confused at baseline and complete history could not be obtained. Patient was sent to ER due to outpatient abnormal lab workup. Patient was complaining of drainage from his surgical site. Patient was sent to ER due to concern for postoperative pelvic infection seroma versus abscess. CT of the abdomen pelvis showed right abdominal drainage catheter without evidence for organizing fluid collection. Consider removal of drainage catheter. 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 New pneumobilia within the left hepatic lobe. Urinary bladder Calderon catheter in appropriate position. Laboratory data showed WBC 6.35 hemoglobin 10.4 and platelets 339 Sodium 141 potassium 4.7 chloride 105 bicarb is 29.5 BUN 10.6 and creatinine 1.2 and blood sugar 85 alk phos 160 and albumin 2.4 04/03/2024 Patient is resting in bed. Awake alert and oriented x 3. On room air. Still complains of lower abdominal pain. Patient does have JANELLE drain in place with 10 cc overnight. Tolerating regular diet. Patient has been continued on antibiotics, clindamycin. Blood cultures negative so far. Laboratory data showed WBC 5.2 hemoglobin 9.7 and platelets 299 sodium 141 potassium 4.1 chloride 106 bicarb is 29.4 BUN 10.4 and creatinine 1.2 calcium 7.7. Blood sugar 100. 04/04/2024 Patient is currently lying in the bed. Complains of lower abdominal pain. Status post obi removed from the surgical wound yesterday and also with silver packing. JANELLE drain with serous fluid. Afebrile. No nausea vomiting abdominal pain or diarrhea. Tolerating regular diet. Laboratory data is not available today. Wound culture report pending. 04/05/2024 Patient is lying in the bed. Awake alert and oriented. Complains of abdominal pain. JANELLE drain To be removed today. Patient has been afebrile. Tolerating oral diet. Ostomy output present. No other acute overnight issues. Laboratory data showed WBC 5.9 hemoglobin 11.3 and platelets 247 sodium 142 potassium 4.2 chloride 107 bicarb is 21.1 BUN 8.9 and creatinine 1.2 and blood sugar 64. Calcium 8.0. Wound cultures growing Enterococcus. ID was consulted to titrate on antibiotics. Patient is on clindamycin. Changed to vancomycin. Follow-up final culture report.. 04/06/2024 Patient is resting in the bed. Awake alert and oriented. No complaints of chest pain or shortness of breath. Abdominal pain is better. JANELLE drain was removed yesterday. Wound cultures growing Enterococcus species and antibiotics changed to vancomycin. ID is on board. Patient has been afebrile. Tolerating oral diet. No other acute overnight issues. Follow-up final culture report. Current medications reviewed. Objective - Vital Signs Vital signs: Vital Signs Temp 97.4 F L 04/06/24 19:45 Pulse 69 04/06/24 19:45 Resp 18 04/06/24 19:45 BP 100/63 04/06/24 19:45 Pulse Ox 96 04/06/24 19:45 FiO2 Intake & Output 04/06/24 04/06/24 04/07/24 06:59 18:59 06:59 Output Total 2500 3900 Balance -2500 -3900 Weight 121.109 kg Output: Urine 2500 3800 Stool 100 Other: Voiding Method Indwelling Catheter Indwelling Catheter # Bowel Movements 300 - Exam PHYSICAL EXAMINATION: Patient is lying in the bed comfortably, no acute distress, awake alert and oriented.. HEENT: Normocephalic. Neck is supple. Pupils reactive. Nostrils clear. Oral cavity is moist. Neck reveals no JVD, carotid bruits, or thyromegaly. CHEST EXAMINATION: Trachea is central. Symmetrical expansion. Lung nicole clear to auscultation and percussion. CARDIAC: Normal S1, S2 with no gallops. No murmurs ABDOMEN: Soft. Bowel sounds present. No discharge from the surgical wound. Colostomy present.. No organomegaly. No abdominal bruits. Extremities: reveal no edema. No clubbing or cyanosis Neurologically awake, alert, oriented x 2-3 able to move upper extremities. Paraplegic. Skin: No rash or skin lesions. Psychiatric: Coperative. Nonsuicidal anxious. Musculoskeletal: No joint swelling or deformity. Normal range of motion. - Labs CBC & Chem 7: 04/07/24 05:45 04/08/24 05:31 Labs: Abnormal Lab Results - Last 24 Hours (Table) 04/06/24 04/06/24 04/06/24 Range/Units 05:43 06:01 06:01 RBC 3.80 L (4.10-5.20) X 10*6/uL Hgb 11.3 L (12.0-15.0) g/dL Hct 36.8 L (37.2-46.3) % MCHC 30.7 L (32.0-37.0) g/dL BUN 8.9 L (9.0-27.0) mg/dL Est GFR (CKD-EPI) 55 L (>=60) BUN/Creatinine Ratio 7.42 L (12.00-20.00) Ratio Glucose 64 L (70-110) mg/dL POC Glucose (mg/dL) 64 L (70-110) mg/dL Calcium 8.0 L (8.7-10.3) mg/dL 04/06/24 04/06/24 04/06/24 Range/Units 06:03 11:12 16:22 RBC (4.10-5.20) X 10*6/uL Hgb (12.0-15.0) g/dL Hct (37.2-46.3) % MCHC (32.0-37.0) g/dL BUN (9.0-27.0) mg/dL Est GFR (CKD-EPI) (>=60) BUN/Creatinine Ratio (12.00-20.00) Ratio Glucose (70-110) mg/dL POC Glucose (mg/dL) 64 L 127 H 135 H (70-110) mg/dL Calcium (8.7-10.3) mg/dL 04/06/24 Range/Units 20:20 RBC (4.10-5.20) X 10*6/uL Hgb (12.0-15.0) g/dL Hct (37.2-46.3) % MCHC (32.0-37.0) g/dL BUN (9.0-27.0) mg/dL Est GFR (CKD-EPI) (>=60) BUN/Creatinine Ratio (12.00-20.00) Ratio Glucose (70-110) mg/dL POC Glucose (mg/dL) 134 H (70-110) mg/dL Calcium (8.7-10.3) mg/dL Microbiology - Last 24 Hours (Table) 04/03/24 10:40 Gram Stain - Final Abdomen Wound Culture - Final Enterococcus raffinosus Assessment and Plan Assessment: Concern for postoperative pelvic infection serum versus abscess. CT of the abdomen pelvis showed no intra-abdominal abscess. Right abdominal drainage catheter without evidence for organizing fluid collection. Status post obi removal on 03/04/2024. History of recent open appendectomy on 03/14/2024. Postoperatively patient was transferred to [facility] as per patient and family request. 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 Seizure disorder GERD Chronic inflammatory demyelinating polyneuritis. History of ESBL UTI Anxiety/depression DVT prophylaxis patient is already on Eliquis GI prophylaxis with PPI Plan: Patient was continued on IV hydration with normal saline.. Tolerating regular diet. CT of the abdomen pelvis showed no evidence of abscess. JANELLE drain was removed on 04/05/2024 Wound cultures growing Enterococcus species. Patient is on vancomycin. ID is on board. Follow-up final culture report. General surgery is on board. [place] removed.. Continue with home medications and pain management and follow-up closely. Discussed with patient in detail at bedside. Time with Patient: Greater than 30
--- NOTE | 2024-04-08 09:12 | P.PN ---
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 Patient is confused at baseline and complete history could not be obtained. Patient was sent to ER due to outpatient abnormal lab workup. Patient was complaining of drainage from his surgical site. Patient was sent to ER due to concern for postoperative pelvic infection seroma versus abscess. CT of the abdomen pelvis showed right abdominal drainage catheter without evidence for organizing fluid collection. Consider removal of drainage catheter. 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 New pneumobilia within the left hepatic lobe. Urinary bladder Calderon catheter in appropriate position. Laboratory data showed WBC 6.35 hemoglobin 10.4 and platelets 339 Sodium 141 potassium 4.7 chloride 105 bicarb is 29.5 BUN 10.6 and creatinine 1.2 and blood sugar 85 alk phos 160 and albumin 2.4 04/03/2024 Patient is resting in bed. Awake alert and oriented x 3. On room air. Still complains of lower abdominal pain. Patient does have JANELLE drain in place with 10 cc overnight. Tolerating regular diet. Patient has been continued on antibiotics, clindamycin. Blood cultures negative so far. Laboratory data showed WBC 5.2 hemoglobin 9.7 and platelets 299 sodium 141 potassium 4.1 chloride 106 bicarb is 29.4 BUN 10.4 and creatinine 1.2 calcium 7.7. Blood sugar 100. 04/04/2024 Patient is currently lying in the bed. Complains of lower abdominal pain. Status post obi removed from the surgical wound yesterday and also with silver packing. JANELLE drain with serous fluid. Afebrile. No nausea vomiting abdominal pain or diarrhea. Tolerating regular diet. Laboratory data is not available today. Wound culture report pending. 04/05/2024 Patient is lying in the bed. Awake alert and oriented. Complains of abdominal pain. JANELLE drain To be removed today. Patient has been afebrile. Tolerating oral diet. Ostomy output present. No other acute overnight issues. Laboratory data showed WBC 5.9 hemoglobin 11.3 and platelets 247 sodium 142 potassium 4.2 chloride 107 bicarb is 21.1 BUN 8.9 and creatinine 1.2 and blood sugar 64. Calcium 8.0. Wound cultures growing Enterococcus. ID was consulted to titrate on antibiotics. Patient is on clindamycin. Changed to vancomycin. Follow-up final culture report.. 04/06/2024 Patient is resting in the bed. Awake alert and oriented. No complaints of chest pain or shortness of breath. Abdominal pain is better. JANELLE drain was removed yesterday. Wound cultures growing Enterococcus species and antibiotics changed to vancomycin. ID is on board. Patient has been afebrile. Tolerating oral diet. No other acute overnight issues. Follow-up final culture report. 04/07/2024 Patient is resting in bed. Abdominal pain is better. Tolerating oral diet. Obi were also removed. No complaints of fever or chills. No nausea vomiting abdominal pain or diarrhea. Abdominal wound cultures growing Enterococcus raphe gnosis. Patient is maintained on vancomycin. ID is on board. Patient may need IV antibiotic course pending final culture report.. Laboratory data showed WBC 5.6 hemoglobin 11.1 and platelets 187 sodium 140 potassium 4.7 chloride 106 bicarb is 29 BUN 8.4 and creatinine 1.1 and blood sugar 134. CRP 1.30. Current medications reviewed. Objective - Vital Signs Vital signs: Vital Signs Temp 97.7 F 04/07/24 18:55 Pulse 73 04/07/24 18:55 Resp 16 04/07/24 18:55 BP 90/54 04/07/24 20:03 Pulse Ox 96 04/07/24 18:55 FiO2 Intake & Output 04/07/24 04/07/24 04/08/24 06:59 18:59 06:59 Output Total 1575 900 Balance -1575 -900 Output: Urine 1575 800 Stool 100 Other: Voiding Method Indwelling Catheter Indwelling Catheter # Bowel Movements 0 - Exam PHYSICAL EXAMINATION: Patient is lying in the bed comfortably, no acute distress, awake alert and oriented.. HEENT: Normocephalic. Neck is supple. Pupils reactive. Nostrils clear. Oral cavity is moist. Neck reveals no JVD, carotid bruits, or thyromegaly. CHEST EXAMINATION: Trachea is central. Symmetrical expansion. Lung nicole clear to auscultation and percussion. CARDIAC: Normal S1, S2 with no gallops. No murmurs ABDOMEN: Soft. Bowel sounds present. No discharge from the surgical wound. Colostomy present.. No organomegaly. No abdominal bruits. Extremities: reveal no edema. No clubbing or cyanosis Neurologically awake, alert, oriented x 2-3 able to move upper extremities. Paraplegic. Skin: No rash or skin lesions. Psychiatric: Coperative. Nonsuicidal anxious. Musculoskeletal: No joint swelling or deformity. Normal range of motion. - Labs CBC & Chem 7: 04/07/24 05:45 04/08/24 05:31 Labs: Abnormal Lab Results - Last 24 Hours (Table) 04/07/24 04/07/24 04/07/24 Range/Units 05:44 05:45 05:45 RBC 3.69 L (4.10-5.20) X 10*6/uL Hgb 11.1 L (12.0-15.0) g/dL Hct 36.9 L (37.2-46.3) % MCV 100.0 H (80.0-97.0) FL MCHC 30.1 L (32.0-37.0) g/dL Eosinophils # 0.36 H (0.04-0.35) X 10*3/uL NRBC/100 WBC Diff 0.02 H (0.00-0.01) X 10*3/uL BUN 8.4 L (9.0-27.0) mg/dL BUN/Creatinine Ratio 7.64 L (12.00-20.00) Ratio Glucose 134 H (70-110) mg/dL POC Glucose (mg/dL) 124 H (70-110) mg/dL Calcium 7.9 L (8.7-10.3) mg/dL Total Bilirubin <0.2 L (0.3-1.2) mg/dL ALT 6 L (8-44) U/L C-Reactive Protein 1.30 H (0.00-0.80) mg/dL Total Protein 5.4 L (6.2-8.2) g/dL Albumin 2.3 L (3.8-4.9) g/dL Albumin/Globulin Ratio 0.74 L (1.60-3.17) Ratio 04/07/24 04/07/24 Range/Units 16:35 20:20 RBC (4.10-5.20) X 10*6/uL Hgb (12.0-15.0) g/dL Hct (37.2-46.3) % MCV (80.0-97.0) FL MCHC (32.0-37.0) g/dL Eosinophils # (0.04-0.35) X 10*3/uL NRBC/100 WBC Diff (0.00-0.01) X 10*3/uL BUN (9.0-27.0) mg/dL BUN/Creatinine Ratio (12.00-20.00) Ratio Glucose (70-110) mg/dL POC Glucose (mg/dL) 130 H 183 H (70-110) mg/dL Calcium (8.7-10.3) mg/dL Total Bilirubin (0.3-1.2) mg/dL ALT (8-44) U/L C-Reactive Protein (0.00-0.80) mg/dL Total Protein (6.2-8.2) g/dL Albumin (3.8-4.9) g/dL Albumin/Globulin Ratio (1.60-3.17) Ratio Microbiology - Last 24 Hours (Table) 04/01/24 18:40 Blood Culture - Final Blood 04/01/24 18:25 Blood Culture - Final Blood Assessment and Plan Assessment: Concern for postoperative pelvic infection serum versus abscess. CT of the abdomen pelvis showed no intra-abdominal abscess. Right abdominal drainage catheter without evidence for organizing fluid collection. Status post obi removal on 03/04/2024. History of recent open appendectomy on 03/14/2024. Postoperatively patient was transferred to [facility] as per patient and family request. 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 Seizure disorder GERD Chronic inflammatory demyelinating polyneuritis. History of ESBL UTI Anxiety/depression DVT prophylaxis patient is already on Eliquis GI prophylaxis with PPI Plan: Patient was continued on IV hydration with normal saline.. Tolerating regular diet. CT of the abdomen pelvis showed no evidence of abscess. JANELLE drain was removed on 04/05/2024 Wound cultures growing Enterococcus species. Patient is on vancomycin. ID is on board. Follow-up final culture report. General surgery is on board. Sula removed.. Continue with home medications and pain management and follow-up closely. Discussed with patient in detail at bedside. Time with Patient: Greater than 30
[2024-04-08 11:48] LABS: Glucose,Whole Blood 102 mg/dL (70-110)
--- NOTE | 2024-04-08 14:17 | P.DS ---
Providers Date of admission: 04/04/24 09:32 Expected date of discharge: 04/08/24 Attending physician: José Miguel Chopra Consults: 04/01/24 19:32 Consult Physician Routine Consulting Provider: Antonio Garcia Consult Reason/Comments: known Do you want consulting provider notified?: Yes 04/06/24 06:40 Consult Physician Routine Consulting Provider: Geoffrey Anthony Consult Reason/Comments: positive wound culture Do you want consulting provider notified?: Yes, Notify in am Primary care physician: Gama Ventura Hospital Course: Final diagnosis Concern for postoperative pelvic infection serum versus abscess. CT of the abdomen pelvis showed no intra-abdominal abscess. Right abdominal drainage catheter without evidence for organizing fluid collection. Status post obi removal on 03/04/2024. History of recent open appendectomy on 03/14/2024. Postoperatively patient was transferred to [facility] as per patient and family request. 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 Seizure disorder GERD Chronic inflammatory demyelinating polyneuritis. History of ESBL UTI Anxiety/depression DVT prophylaxis patient is already on Eliquis GI prophylaxis with PPI Discharge disposition Patient is being discharged in a stable condition with guarded prognosis to [facility]. Patient will follow-up with Dr. Ventura in the outpatient setting upon discharge. Patient is to continue with IV antibiotics with a PICC line in the form of vancomycin for 2 weeks with pharmacy to dose and recommend close outpatient follow-up with general surgery as scheduled. Total time taken is greater than 35 minutes. Hospital course This is a 48-year-old female who was recently admitted with abdominal pain with concerns of seroma versus abscess status post open appendectomy. Patient showing positive cultures with Enterococcus and will be continued on vancomycin per ID recommendations for the next 2 weeks. Pharmacy to dose and recommend repeat CK, CBC, CMP, CRP, and Vanco trough. Patient also to continue on heart healthy and consistent carb diet monitoring blood sugars recommended continue with Accu-Cheks before meals and at bedtime and use sliding scale as needed. Patient has been evaluated by general surgery recommending outpatient follow-up. Continue local wound care every 2 days by changing Aquacel silver packing and covering the incision with an ABD pad. Change pads if becoming soiled or saturated. Patient has been cleared by consultations for discharge to [facility] today. Please refer to other consultation notes for further HPI. Currently no reports of chest pain, shortness of breath, or palpitations. Patient is afebrile. No reports of nausea or vomiting and patient is tolerating diet. Patient will be discharged to [facility] on the [place] today. Guarded prognosis Physical exam: Gen: This is a 48-year-old female who is awake, alert and oriented x 2-3, baseline, well-developed and well-nourished, obese HEENT: Head is atraumatic, normocephalic. Pupils equal, round. Sclerae is anicteric. NECK: Supple. No JVD. No lymphadenopathy. No thyromegaly. LUNGS: Diminished breath sounds bilaterally otherwise clear to auscultation. No wheezes or rhonchi. No intercostal retractions. HEART: S1, S2 are muffled ABDOMEN: Soft. Obese. Bowel sounds are present. No masses. tenderness noted on the right and left lower quadrants on palpation. EXTREMITIES: No pedal edema. No calf tenderness. NEUROLOGICAL: Patient is awake, alert and oriented x3. Cranial nerves 2 through 12 are grossly intact. Diffusely weak Please refer to medication reconciliation sheet for a list of medications. The impression and plan of care has been dictated by Alexia Menezes, Nurse Practitioner as directed. Dr. Chopra,, I have performed a history and examination and MDM of this patient, discussed the same with the dictator, and agree with the dictator's assessment and plan as written ,documented as a scribe. Based on total visit time, I have performed more than 50% of the visit. Patient Condition at Discharge: Stable Plan - Discharge Summary New Discharge Prescriptions: New Vancomycin 2,000 mg IVPB Q12H 14 Days #28 each Continue Oxybutynin Chloride [oxyBUTYnin chloride ER] 15 mg PO DAILY Venlafaxine HCl ER [Effexor XR] 37.5 mg PO DAILY Magnesium Oxide [Mag-Ox] 400 mg PO BID Ondansetron [Zofran] 4 mg PO Q8H PRN PRN Reason: Nausea levETIRAcetam [Keppra] 750 mg PO BID Menthol-Zinc Oxide Oint [Calmoseptine Ointment] 1 applic TOPICAL DAILY PRN PRN Reason: BUTTOCKS SKIN CARE Ascorbic Acid [Vitamin C] 500 mg PO BID Metoprolol Succinate (ER) [Toprol XL] 12.5 mg PO DAILY Ergocalciferol (Vitamin D2) [Drisdol (50,000 Iu)] 1,250 mcg PO WE Gabapentin [Neurontin] 300 mg PO TID@0600,1400,2200 #6 cap Apixaban [Eliquis] 5 mg PO BID Baclofen 5 mg PO BID Multivitamins, Thera [Multivitamin (formulary)] 1 tab PO DAILY Acetaminophen Tab [Tylenol] 650 mg PO Q6H PRN PRN Reason: Pain Semaglutide [Ozempic] 0.5 mg SQ SA Suvorexant [Belsomra] 15 mg PO HS Famotidine [Pepcid] 20 mg PO DAILY Docusate Sodium [Dok] 100 mg PO DAILY PRN PRN Reason: Constipation Insulin Lispro [humaLOG Kwikpen] See Protocol SQ ACHS Cholecalciferol [Vitamin D3 (25 Mcg = 1000 Iu)] 25 mcg PO DAILY Sennosides [Senokot] 17.2 mg PO BID PRN PRN Reason: Constipation Insulin Glargine-Yfgn [Semglee (Yfgn) Pen] 15 unit SQ BID Flecainide Acetate [Tambocor] 50 mg PO BID Ferrous Sulfate [Iron (65 MG Elemental)] 325 mg PO BID Cranberry Fruit [Cranberry] 465 mg PO BID Folic Acid 1 mg PO DAILY oxyCODONE HCL [oxyCODONE HCL (IR)] 10 mg PO Q4H PRN #4 tab PRN Reason: Pain Discontinued oxyCODONE HCL [Oxycodone HCl] 10 mg PO QID@00,06,12,18 Cephalexin [Keflex] 500 mg PO QID@09,13,17,21 Discharge Medication List Acetaminophen Tab [Tylenol] 650 mg PO Q6H PRN 06/18/22 [History] Apixaban [Eliquis] 5 mg PO BID 06/18/22 [History] Baclofen 5 mg PO BID 06/18/22 [History] Multivitamins, Thera [Multivitamin (formulary)] 1 tab PO DAILY 06/18/22 [History] Oxybutynin Chloride [oxyBUTYnin chloride ER] 15 mg PO DAILY 06/18/22 [History] Cholecalciferol [Vitamin D3 (25 Mcg = 1000 Iu)] 25 mcg PO DAILY 11/19/23 [History] Docusate Sodium [Dok] 100 mg PO DAILY PRN 11/19/23 [History] Famotidine [Pepcid] 20 mg PO DAILY 11/19/23 [History] Insulin Lispro [humaLOG Kwikpen] See Protocol SQ ACHS 11/19/23 [History] Magnesium Oxide [Mag-Ox] 400 mg PO BID 11/19/23 [History] Semaglutide [Ozempic] 0.5 mg SQ SA 11/19/23 [History] Suvorexant [Belsomra] 15 mg PO HS 11/19/23 [History] Venlafaxine HCl ER [Effexor XR] 37.5 mg PO DAILY 11/19/23 [History] Ondansetron [Zofran] 4 mg PO Q8H PRN 03/13/24 [History] levETIRAcetam [Keppra] 750 mg PO BID 03/13/24 [History] Ascorbic Acid [Vitamin C] 500 mg PO BID 04/01/24 [History] Cranberry Fruit [Cranberry] 465 mg PO BID 04/01/24 [History] Ergocalciferol (Vitamin D2) [Drisdol (50,000 Iu)] 1,250 mcg PO WE 04/01/24 [History] Ferrous Sulfate [Iron (65 MG Elemental)] 325 mg PO BID 04/01/24 [History] Flecainide Acetate [Tambocor] 50 mg PO BID 04/01/24 [History] Folic Acid 1 mg PO DAILY 04/01/24 [History] Insulin Glargine-Yfgn [Semglee (Yfgn) Pen] 15 unit SQ BID 04/01/24 [History] Menthol-Zinc Oxide Oint [Calmoseptine Ointment] 1 applic TOPICAL DAILY PRN 04/01/24 [History] Metoprolol Succinate (ER) [Toprol XL] 12.5 mg PO DAILY 04/01/24 [History] Sennosides [Senokot] 17.2 mg PO BID PRN 04/01/24 [History] Gabapentin [Neurontin] 300 mg PO TID@0600,1400,2200 #6 cap 04/08/24 [Rx] Vancomycin 2,000 mg IVPB Q12H 14 Days #28 each 04/08/24 [Rx] oxyCODONE HCL [oxyCODONE HCL (IR)] 10 mg PO Q4H PRN #4 tab 04/08/24 [Rx] Follow up Appointment(s)/Referral(s): Gama Ventura MD [Primary Care Provider] - 1-2 days Antonio Garcia MD [STAFF PHYSICIAN] - 1 Week Activity/Diet/Wound Care/Special Instructions: Patient is going to ECF Activity as tolerated Follow-up with primary care provider on discharge Follow-up with general surgery outpatient Continue with antibiotics via PICC line per ID recommendations as instructed Continue monitoring Accu-Cheks before meals and at bedtime and will continue current insulin regimen Use sliding scale as needed NovoLog sliding scale 0-150 equals 0 units 151-200 equals 2 units 201-250 equals 4 units 251-300 equals 6 units 301-350 equals 8 units 351-400 equals 10 units Please notify provider if blood sugar is 400 or above Continue heart healthy diabetic diet Discharge Disposition: TRANSFER TO SNF/ECF
--- NOTE | 2024-04-08 15:30 | P.PN ---
Subjective Progress Note Date: 04/08/24 Principal diagnosis: Reason for follow-up is positive abdominal wound culture Patient is a 48-year-old female with multiple comorbidities including diabetes mellitus reflux seizure disorder atrial fibrillation patient was recently admitted to this facility in this patient who is status post open appendectomy for ruptured appendicitis, now back to the hospital concerning for abdominal wall infection CT was negative for any intra-abdominal abscess did have some purulent drainage did grow Enterococcus raffinosus. On today's evaluation that is 04/08/2024,the patient denies any fever or any chills, patient is breathing comfortably on room air, the patient denies chest pain shortness of breath and no significant cough, patient denies nausea vomiting complaining of abdominal pain and purulent drainage from the lower end of incision no diarrhea. Patient did have a creatinine 1.12 no CBC was done today Objective - Vital Signs Vital signs: Vital Signs Temp 97.9 F 04/08/24 01:25 Pulse 60 04/08/24 01:25 Resp 16 04/08/24 01:25 BP 96/56 04/08/24 01:25 Pulse Ox 92 L 04/08/24 01:25 FiO2 Intake & Output 04/07/24 04/08/24 04/08/24 18:59 06:59 18:59 Output Total 900 1350 Balance -900 -1350 Output: Urine 800 1350 Stool 100 Other: Voiding Method Indwelling Catheter Indwelling Catheter # Bowel Movements 0 - Exam GENERAL DESCRIPTION: Middle-aged female lying in bed in no distress RESPIRATORY SYSTEM: Unlabored breathing , decreased breath sounds at bases HEART: S1 S2 regular rate and rhythm , ABDOMEN: Soft , mild tenderness, did have some purulent drainage from the lower end of the incision EXTREMITIES: No edema feet - Labs CBC & Chem 7: 04/07/24 05:45 04/08/24 05:31 Labs: Abnormal Lab Results - Last 24 Hours (Table) 04/07/24 04/07/24 04/08/24 Range/Units 16:35 20:20 05:31 Creatinine 1.12 H (0.52-1.04) mg/dL POC Glucose (mg/dL) 130 H 183 H (70-110) mg/dL Assessment and Plan (1) Abdominal wall abscess Current Visit: Yes Status: Acute Code(s): L02.211 - CUTANEOUS ABSCESS OF ABDOMINAL WALL SNOMED Code(s): 37942923 Plan: 1patient presented to hospital with abdominal pain and some purulent drainage from the incision in this patient who did not have any fever during this hospital stay white count has been normal CT abdominal pelvis did not show any intra-abdominal abscess however the patient did have some purulent drainage from the lower end of the incision which has been cultured and is growing drug-resistant Enterococcus likely representing abdominal wall abscess 2-patient did get a PICC line plan is for at least a 2-week course of vancomycin pharmacy to dose and close outpatient follow-up continue to pack the abdominal wound with Aquacel silver dressing change daily multiple question concern answered Dictation was produced using [employer] dictation software. please excuse any grammatical, word or spelling errors. Time with Patient: Less than 30
[2024-04-08 15:55] VITALS: BP 101/66; PULSE 79; RESP 18; TEMP 98.4
[2024-04-08 16:40] LABS: Glucose,Whole Blood 174 mg/dL (70-110)
[2024-04-08] MEDS ORDERED: VANCOMYCIN TROUGH DUE 1 EACH MISC MISCELLANE ONE (23:00)
== END 2024-04-08 19:05 | DRG 863 ==
LOC: EC 16:03 → 4SSUR 19:35 → OBSVTOIN 04-04 09:32
PROVIDERS: ADMIT Hospitalist; ATTEND Hospitalist
DX: T81.41XA Infection following a procedure, superficial incisional surgical site, initial encounter (principal); G61.81 Chronic inflammatory demyelinating polyneuritis; G82.20 Paraplegia, unspecified; L02.211 Cutaneous abscess of abdominal wall; Z16.11 Resistance to penicillins; I48.0 Paroxysmal atrial fibrillation; G40.909 Epilepsy, unspecified, not intractable, without status epilepticus; E11.9 Type 2 diabetes mellitus without complications; Z79.4 Long term (current) use of insulin; Z93.3 Colostomy status; F32.A Depression, unspecified; B95.2 Enterococcus as the cause of diseases classified elsewhere; E80.4 Gilbert syndrome; K43.5 Parastomal hernia without obstruction or gangrene; K21.9 Gastro-esophageal reflux disease without esophagitis; F41.9 Anxiety disorder, unspecified; Z79.01 Long term (current) use of anticoagulants; Z79.899 Other long term (current) drug therapy; Z87.891 Personal history of nicotine dependence; Z91.013 Allergy to seafood; Z91.018 Allergy to other foods; Z90.49 Acquired absence of other specified parts of digestive tract; Z86.19 Personal history of other infectious and parasitic diseases; Z87.19 Personal history of other diseases of the digestive system
CPT/HCPCS: 36415; 36573; 74177; 80048; 80053; 82150; 82565; 83605; 83690; 83735; 84100; 85025; 85610; 85730; 86140; 87040; 87070; 87075; 87077; 87186; 87205; 96361; 96374; 99285

== ENCOUNTER 2024-11-14 13:49 | Inpatient (IN) | payer MEDICARE, OTHER ==
[2024-11-14 15:30] LABS: ALT 8 U/L (4-34); African American GFR (CKD) >90 (>60 ml/min/1.73 sqM); Anion Gap 7 mmol/L; Blood Urea Nitrogen 14 mg/dL (7-17); Calcium 8.6 mg/dL (8.4-10.2); Carbon Dioxide 26 mmol/L (22-30); Chloride 101 mmol/L (98-107); Glucose 124 mg/dL (74-99); Lipase 87 U/L (23-300); Non-African American GFR(CKD) 86 (>60 ml/min/1.73 sqM); Sodium 134 mmol/L (137-145)
[2024-11-14 15:36] LABS: AST 31 U/L (14-36); Albumin 3.6 g/dL (3.5-5.0); Alkaline Phosphatase 96 U/L (38-126); Potassium 5.4 mmol/L (3.5-5.1); Total Bilirubin 0.9 mg/dL (0.2-1.3); Total Protein 7.5 g/dL (6.3-8.2)
[2024-11-14 15:52] LABS: Appearance,Urine Clear (Clear); Bacteria,Urine Many /hpf; Bilirubin,Urine Negative (Negative); Blood,Urine Large (Negative); Color,Urine Yellow; Glucose,Urine (UA) Negative (Negative); Ketones,Urine Negative (Negative); Leukocyte Esterase,Urine Large (Negative); Nitrite,Urine Negative (Negative); Protein,Urine 1+ (Negative); RBC,Urine >182 /hpf (0-5); Specific Gravity,Urine 1.009 (1.001-1.035); Squamous Epithelial Cell,Urine <1 /hpf (0-4); Urobilinogen,Urine <2.0 mg/dL (<2.0); WBC,Urine 28 /hpf (0-5)
--- NOTE | 2024-11-14 16:22 | US ---
EXAMINATION TYPE: US renals and bladder DATE OF EXAM: 11/14/2024 COMPARISON: CT(04/01/2024) CLINICAL INDICATION: Female, 49 years old with history of PAIN; TECHNIQUE: Grayscale imaging of the bilateral kidneys and urinary bladder: FINDINGS: EXAM MEASUREMENTS: Right Kidney: 10.1x4.9x5.1 cm Left Kidney: 9.3x4.9x4.2 cm very limited exam due to pt unable to roll and body habitus Right Kidney: No hydronephrosis or masses seen Left Kidney: Anechoic area seen (mid): 2.1x1.3x2.0cm Bladder: Pt has catheter in Bilateral Jets seen: No IMPRESSION: 1. Limited exam due to the patient's body habitus. 2. Limited evaluation urinary bladder due to presence of urinary catheter. 3. No solid renal masses, renal calcifications or hydronephrosis. 4. 2.1 cm left renal hypoechoic mass likely a simple cyst. [facility], Workstation: LAURIE 11/14/2024 4:20 PM
[2024-11-14 16:24] LABS: Basophils % (A) 0 %; Eosinophils # (A) 0.2 k/uL (0-0.7); Eosinophils % (A) 2 %; HCT 44.3 % (34.0-46.0); HGB 14.3 gm/dL (11.4-16.0); Hypochromasia Slight; Lymphocytes # (A) 1.3 k/uL (1.0-4.8); Lymphocytes % (A) 14 %; MCH 31.4 pg (25.0-35.0); MCHC 32.3 g/dL (31.0-37.0); MCV 97.1 fL (80.0-100.0); Mean Platelet Volume 7.6; Monocytes # (A) 0.4 k/uL (0-1.0); Monocytes % (A) 5 %; Neutrophils # (A) 7.3 k/uL (1.3-7.7); Neutrophils % (A) 78 %; Platelet Count 238 k/uL (150-450); RBC 4.56 m/uL (3.80-5.40); RDW 13.1 % (11.5-15.5); WBC 9.3 k/uL (3.8-10.6)
[2024-11-14] MEDS: HYDROcodone/APAP 10-325MG 1 EACH TAB PO ONE (16:56)
--- NOTE | 2024-11-14 18:03 | CT ---
EXAMINATION TYPE: CT abdomen pelvis wo con DATE OF EXAM: 11/14/2024 5:29 PM COMPARISON: 04/01/2024 CLINICAL INDICATION: Female, 49 years old with history of kidney stones, Renal stones. TECHNIQUE: Axial images were obtained from above the diaphragm to the pubic rami in the axial plane a t 5 mm thick sections. Reconstructed images are reviewed on the computer in the coronal plane. CONTRAST: mL of . Study performed without Oral Contrast DLP: 1511.4 mGycm, Automated exposure control for dose reduction was used. FINDINGS: Limited CT sections are obtained the lung bases. There is a consolidation or mass along the posterio r right lung base. This was present previously. This measures 2.[address] ABDOMEN: Liver: Normal Spleen: Normal Pancreas: Normal Adrenal glands: The adrenal glands are normal. Gallbladder: Surgically absent Kidneys: No masses are evident. No hydronephrosis is present. No cysts are present. No renal stone s are evident. There are couple of cortical renal calcification posterior left kidney. Aorta: Mild Vascular calcification is within the aorta. Inferior vena cava: Normal. CT PELVIS: Loops of bowel within the abdomen and pelvis are normal. There is an ostomy in the left lower quadran t. Descending colon is decompressed. Small bowel loops appear unremarkable. There are loops of bow el which are incompletely distended or lack oral contrast limiting their evaluation. Appendix: Normal as visualized. Urinary bladder: Decompressed with Calderon catheter. Genitourinary structures: There is a 3.2 cm cyst on right ovary. Left adnexa appears unremarkable. Ut erus appears unremarkable Osseous structures: No suspicious lytic or sclerotic lesions. IMPRESSION: 1. No renal or ureteral stones. No hydronephrosis. 2. Left lower quadrant ostomy day 3. Right ovarian cyst measuring 3.2 cm. 4. Consolidation or mass posterior right lung base [facility], , 11/14/2024 6:01 PM
--- NOTE | 2024-11-14 18:06 | ED ---
Female Urogenital HPI - General Chief complaint: Urogenital Stated complaint: Bladder pain Time Seen by Provider: 11/14/24 13:52 Source: patient, EMS Mode of arrival: EMS Limitations: no limitations - History of Present Illness Initial comments: 49-year-old female presents to the emergency department from [facility] for suprapubic pain. Patient has an indwelling Goff. Reports to history of several UTIs secondary to ESBL E. coli. patient not currently on any medications for infection. Indwelling Goff was changed last night and urinalysis was sent. Patient previously hospitalized with PICC line placement. Patient reports to history of ureteral stones with stent placement. Patient concern for stone at this time. She denies any fevers. No nausea or vomiting. No other alleviating, precipitating modifying factors - Related Data Home Medications Medication Instructions Recorded Confirmed Acetaminophen Tab [Tylenol] 650 mg PO Q6H PRN 06/18/22 11/14/24 Apixaban [Eliquis] 5 mg PO BID 06/18/22 11/14/24 Baclofen 5 mg PO BID 06/18/22 11/14/24 Multivitamins, Thera [Multivitamin 1 tab PO DAILY 06/18/22 11/14/24 (formulary)] Oxybutynin Chloride [oxyBUTYnin 15 mg PO DAILY 06/18/22 11/14/24 chloride ER] Cholecalciferol [Vitamin D3 (25 25 mcg PO DAILY 11/19/23 11/14/24 Mcg = 1000 Iu)] Docusate Sodium [Dok] 100 mg PO DAILY 11/19/23 11/14/24 Famotidine [Pepcid] 20 mg PO DAILY 11/19/23 11/14/24 Insulin Lispro [humaLOG Kwikpen] See Protocol SQ ACHS 11/19/23 11/14/24 Magnesium Oxide [Mag-Ox] 400 mg PO BID 11/19/23 11/14/24 Suvorexant [Belsomra] 15 mg PO HS 11/19/23 11/14/24 Ondansetron [Zofran] 4 mg PO Q6H PRN 03/13/24 11/14/24 levETIRAcetam [Keppra] 750 mg PO BID 03/13/24 11/14/24 Ascorbic Acid [Vitamin C] 500 mg PO BID 04/01/24 11/14/24 Cranberry Fruit [Cranberry] 465 mg PO BID 04/01/24 11/14/24 Ergocalciferol (Vitamin D2) 1,250 mcg PO WE 04/01/24 11/14/24 [Drisdol (50,000 Iu)] Ferrous Sulfate [Iron (65 MG 325 mg PO BID 04/01/24 11/14/24 Elemental)] Flecainide Acetate [Tambocor] 50 mg PO Q12H 04/01/24 11/14/24 Folic Acid 1 mg PO DAILY 04/01/24 11/14/24 Metoprolol Succinate (ER) [Toprol 12.5 mg PO DAILY 04/01/24 11/14/24 XL] Gabapentin [Neurontin] 300 mg PO TID 11/14/24 11/14/24 HYDROcodone/APAP 10-325MG [[place] 1 tab PO Q4HR PRN 11/14/24 11/14/24 10-325] Insulin Glargine,Hum.rec.anlog 15 units SQ HS 11/14/24 11/14/24 [Lantus Solostar Pen] Mylanta Double Strength 10 ml PO Q4H PRN 11/14/24 11/14/24 Phenazopyridine [Pyridium] 100 mg PO ONCE 11/14/24 11/14/24 Semaglutide [Ozempic] 2 mg SQ ARELLANO 11/14/24 11/14/24 Venlafaxine HCl [Effexor XR] 150 mg PO DAILY 11/14/24 11/14/24 Allergies Allergy/AdvReac Type Severity Reaction Status Date / Time shellfish derived [Shellfish] Allergy Unknown Verified 11/14/24 18:04 strawberry Allergy Unknown Verified 11/14/24 18:04 Review of Systems ROS Statement: Those systems with pertinent positive or pertinent negative responses have been documented in the HPI. ROS Other: All systems not noted in ROS Statement are negative. Past Medical History Past Medical History: Atrial Fibrillation, Diabetes Mellitus, GERD/Reflux, Seizure Disorder Additional Past Medical History / Comment(s): admitted to [facility] May 2022 for sepsis/uti,acute renal failure. 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 uses a beata lift,goff catheter,colostomy,chronic inflammatory demyelinating p olyneuritis,anemia,date of last seizure unk History of Any Multi-Drug Resistant Organisms: ESBL Date of last positivie culture/infection: 11/17/23 ESBL E.coli MDRO Source:: Urine Additional Past Surgical History / Comment(s): Urethral stents x 3 Past Anesthesia/Blood Transfusion Reactions: No Reported Reaction Past Psychological History: No Psychological Hx Reported Smoking Status: Never smoker Past Alcohol Use History: None Reported Past Drug Use History: None Reported - Past Family History Father History Unknown: Yes General Exam Limitations: no limitations General appearance: alert, in no apparent distress Head exam: Present: atraumatic, normocephalic, normal inspection Eye exam: Present: normal appearance, PERRL, EOMI. Absent: scleral icterus, conjunctival injection, periorbital swelling ENT exam: Present: normal exam, mucous membranes moist Neck exam: Present: normal inspection. Absent: tenderness, meningismus, lymphadenopathy Respiratory exam: Present: normal lung sounds bilaterally. Absent: respiratory distress, wheezes, rales, rhonchi, stridor Cardiovascular Exam: Present: regular rate, normal rhythm, normal heart sounds. Absent: systolic murmur, diastolic murmur, rubs, gallop, clicks GI/Abdominal exam: Present: soft, tenderness (Suprapubic tenderness), normal bowel sounds. Absent: distended, guarding, rebound, rigid Extremities exam: Present: normal inspection, full ROM, normal capillary refill. Absent: tenderness, pedal edema, joint swelling, calf tenderness Back exam: Present: normal inspection Neurological exam: Present: alert, oriented X3, CN II-XII intact Psychiatric exam: Present: normal affect, normal mood Skin exam: Present: warm, dry, intact, normal color. Absent: rash Course Vital Signs 11/14/24 11/14/24 13:52 21:08 Temperature 98.2 F 98.3 F Pulse Rate 68 77 Respiratory 18 18 Rate Blood Pressure 107/70 103/68 O2 Sat by Pulse 95 95 Oximetry Medical Decision Making - Medical Decision Making Was pt. sent in by a medical professional or institution (ARVIN Dupont, BRIQUETTING MACHINE OPERATOR, urgent care, hospital, or long-term...) When possible be specific @ -Patient sent in from her ECF Did you speak to anyone other than the patient for history (EMS, parent, family, police, friend...)? What history was obtained from this source @ -Spoke with EMS for history Did you review nursing and triage notes (agree or disagree)? Why? @ -I reviewed and agree with nursing and triage notes Were old charts reviewed (outside hosp., previous admission, EMS record, old EKG, old radiological studies, urgent care reports/EKG's, long-term records)? Report findings @ -No old charts were reviewed Differential Diagnosis (chest pain, altered mental status, abdominal pain women, abdominal pain men, vaginal bleeding, weakness, fever, dyspnea, syncope, headache, dizziness, GI bleed, back pain, seizure, CVA, palpatations, mental health, musculoskeletal)? @ -Acute UTI, ureteral stones, hydronephrosis EKG interpreted by me (3pts min.). @ -Not done X-rays interpreted by me (1pt min.). @ -None done CT interpreted by me (1pt min.). @ -Yes which demonstrates no ureteral stones U/S interpreted by me (1pt. min.). @ -None done What testing was considered but not performed or refused? (CT, X-rays, U/S, labs)? Why? @ -None What meds were considered but not given or refused? Why? @ -None Did you discuss the management of the patient with other professionals (professionals i.e. ARVIN Dupont, BRIQUETTING MACHINE OPERATOR, lab, RT, psych nurse, social worker psychiatric, criminal defense lawyer, teacher, eeo officer, case fitter)? Give summary @ -Spoke with Dr. Carranza. Patient requires admission due to history of ESBL UTI Was smoking cessation discussed for >3mins.? @ -No Was critical care preformed (if so, how long)? @ -No Were there social determinants of health that impacted care today? How? (Homelessness, low income, unemployed, alcoholism, drug addiction, transportation, low edu. Level, literacy, decrease access to med. care, nursing home, rehab)? @ -No Was there de-escalation of care discussed even if they declined (Discuss DNR or withdrawal of care, Hospice)? DNR status @ -No What co-morbidities impacted this encounter? (DM, HTN, Smoking, COPD, CAD, Cancer, CVA, ARF, Chemo, Hep., AIDS, mental health diagnosis, sleep apnea, morbid obesity)? @ -Recurrent UTIs, chronic indwelling Goff, history of Guillain-Wall Was patient admitted / discharged? Hospital course, mention meds given and route, prescriptions, significant lab abnormalities, going to OR and other pertinent info. @Upon arrival patient seen and evaluated in the hallway 19. Thorough history and physical exam was performed. Laboratory studies are conducted. Urinalysis does demonstrate a UTI. Patient has history of ESBL which was previously sensitive to Zosyn. I did initiate the patient on this. CT was performed which demonstrates no ureteral stones. Recommended admission for consultation with Dr. Anthony. Patient was agreeable. Spoke with Dr. Carranza for the admission Undiagnosed new problem with uncertain prognosis? @ -No Drug Therapy requiring intensive monitoring for toxicity (Heparin, Nitro, Insulin, Cardizem)? @ -No Were any procedures done? @ -No Diagnosis/symptom? @ -Acute abdominal pain, acute UTI, history of ESBL UTI, chronic indwelling Goff Acute, or Chronic, or Acute on Chronic? @ -Acute on chronic Uncomplicated (without systemic symptoms) or Complicated (systemic symptoms)? @ -Complicated Side effects of treatment? @ -No Exacerbation, Progression, or Severe Exacerbation? @ -No Poses a threat to life or bodily function? How? (Chest pain, USA, MA, pneumonia, PE, COPD, DKA, ARF, appy, cholecystitis, CVA, Diverticulitis, Homicidal, Suicidal, threat to staff... and all critical care pts) @ -No - Lab Data Result diagrams: 11/16/24 03:23 11/16/24 03:23 Lab Results 11/14/24 11/14/24 11/14/24 Range/Units 15:12 15:12 15:12 WBC 9.3 (3.8-10.6) k/uL RBC 4.56 (3.80-5.40) m/uL Hgb 14.3 (11.4-16.0) gm/dL Hct 44.3 (34.0-46.0) % MCV 97.1 (80.0-100.0) fL MCH 31.4 (25.0-35.0) pg MCHC 32.3 (31.0-37.0) g/dL RDW 13.1 (11.5-15.5) % Plt Count 238 (150-450) k/uL MPV 7.6 Neutrophils % 78 % Lymphocytes % 14 % Monocytes % 5 % Eosinophils % 2 % Basophils % 0 % Neutrophils # 7.3 (1.3-7.7) k/uL Lymphocytes # 1.3 (1.0-4.8) k/uL Monocytes # 0.4 (0-1.0) k/uL Eosinophils # 0.2 (0-0.7) k/uL Basophils # 0.0 (0-0.2) k/uL Hypochromasia Slight Sodium 134 L (137-145) mmol/L Potassium 5.4 H (3.5-5.1) mmol/L Chloride 101 (98-107) mmol/L Carbon Dioxide 26 (22-30) mmol/L Anion Gap 7 mmol/L BUN 14 (7-17) mg/dL Creatinine 0.81 (0.52-1.04) mg/dL Est GFR (CKD-EPI)AfAm >90 (>60 ml/min/1.73 sqM) Est GFR (CKD-EPI)NonAf 86 (>60 ml/min/1.73 sqM) Glucose 124 H (74-99) mg/dL Calcium 8.6 (8.4-10.2) mg/dL Total Bilirubin 0.9 (0.2-1.3) mg/dL AST 31 (14-36) U/L ALT 8 (4-34) U/L Alkaline Phosphatase 96 (38-126) U/L Total Protein 7.5 (6.3-8.2) g/dL Albumin 3.6 (3.5-5.0) g/dL Lipase 87 (23-300) U/L Urine Color Yellow Urine Appearance Clear (Clear) Urine pH 8.0 (5.0-8.0) Ur Specific [place] 1.009 (1.001-1.035) Urine Protein 1+ H (Negative) Urine Glucose (UA) Negative (Negative) Urine Ketones Negative (Negative) Urine Blood Large H (Negative) Urine Nitrite Negative (Negative) Urine Bilirubin Negative (Negative) Urine Urobilinogen <2.0 (<2.0) mg/dL Ur Leukocyte Esterase Large H (Negative) Urine RBC >182 H (0-5) /hpf Urine WBC 28 H (0-5) /hpf Ur Squamous Epith Cells <1 (0-4) /hpf Urine Bacteria Many H (None) /hpf Disposition Clinical Impression: UTI due to extended-spectrum beta lactamase (ESBL) producing Escherichia coli Disposition: ADMITTED IP TO THIS [facility] Condition: Stable Is patient prescribed a controlled substance at d/c from ED?: No Time of Disposition: 18:06 Decision to Admit Reason: Admit from EC Decision Date: 11/14/24 Decision Time: 18:06
[2024-11-14] MEDS ORDERED: NALOXONE 0.4 MG/ML 1 ML VIAL IV PRN (18:10)
[2024-11-14] MEDS: PIPERACILLIN-TAZOBACTAM 3.375 GM in SODIUM CHLORIDE 0.9% 100 ML IVPB SCH (19:01)
[2024-11-14] MEDS: MAG HYDROX/AL HYDROX/SIMETH 30 ML CUP PO STA (19:17)
[2024-11-14] MEDS ORDERED: HYDROcodone/APAP 5-325MG 1 EACH TAB PO PRN (23:06)
[2024-11-15] MEDS ORDERED: ONDANSETRON 4 MG TAB PO PRN (00:26)
[2024-11-15] MEDS: FLECAINIDE 50 MG TAB PO SCH (02:53)
[2024-11-15] MEDS: KETOROLAC 15 MG/ML 1 ML VIAL IVP STA (02:53)
[2024-11-15] MEDS: MORPHINE SULFATE 4 MG/ML SYRINGE IVP STA (03:36)
[2024-11-15 06:10] LABS: Glucose,Whole Blood 165 mg/dL (70-110)
[2024-11-15] MEDS: METOPROLOL SUCCINATE (ER) 25 MG TAB.ER.24H PO SCH (07:49)
[2024-11-15] MEDS: GABAPENTIN 300 MG CAP PO SCH (08:36)
[2024-11-15] MEDS: DOCUSATE 100 MG CAP PO SCH (08:36)
[2024-11-15] MEDS: VENLAFAXINE HCL ER 150 MG CAP PO SCH (08:36)
[2024-11-15] MEDS: FOLIC ACID 1 MG TAB PO SCH (08:36)
[2024-11-15] MEDS: FAMOTIDINE 20 MG TAB PO SCH (08:36)
[2024-11-15] MEDS: FERROUS SULFATE 325 MG TAB PO SCH (08:36)
[2024-11-15] MEDS: APIXABAN 5 MG TAB PO SCH (08:36)
[2024-11-15] MEDS: BACLOFEN 10 MG TAB PO SCH (08:36)
[2024-11-15] MEDS: MAGNESIUM OXIDE 400 MG TAB PO SCH (08:36)
[2024-11-15] MEDS: OXYBUTYNIN 15 MG TAB.ER.24 PO SCH (08:37)
[2024-11-15] MEDS: HYDROcodone/APAP 10-325MG 1 EACH TAB PO PRN (08:42)
[2024-11-15 08:48] LABS: Blood Urea Nitrogen 14.8 mg/dL (9.0-27.0); Chloride 98 mmol/L (96-109); Glucose 169 mg/dL (70-110); Potassium 4.2 mmol/L (3.5-5.5); Sodium 135 mmol/L (135-145)
[2024-11-15 08:49] LABS: Calcium 8.5 mg/dL (8.7-10.3); Carbon Dioxide 27.5 mmol/L (21.6-31.8)
[2024-11-15 09:07] LABS: Basophils # (A) 0.02 X 10*3/uL (0.00-0.10); Basophils % (A) 0.2 %; Eosinophils # (A) 0.09 X 10*3/uL (0.04-0.35); Eosinophils % (A) 0.8 %; HCT 44.5 % (37.2-46.3); HGB 13.8 g/dL (12.0-15.0); Lymphocytes # (A) 0.62 X 10*3/uL (0.90-5.00); Lymphocytes % (A) 5.6 %; MCH 29.7 pg (27.0-32.0); MCV 95.9 FL (80.0-97.0); Mean Platelet Volume 10.8 FL (9.5-12.2); Monocytes # (A) 0.49 X 10*3/uL (0.20-1.00); Monocytes % (A) 4.4 %; NRBC Per 100 WBC 0 X 10*3/uL (0.00-0.01); Neutrophils % (A) 88.6 %; Platelet Count 214 X 10*3/uL (140-440); RBC 4.64 X 10*6/uL (4.10-5.20); RDW 13.3 % (11.5-14.5); WBC 11.06 X 10*3/uL (4.50-10.00)
[2024-11-15] MEDS: PHENAZOPYRIDINE 200 MG TAB PO SCH (09:45)
[2024-11-15] MEDS ORDERED: DEXTROSE 50% SYRINGE 50 ML IVP PRN ×2 (10:28)
[2024-11-15 11:41] LABS: Glucose,Whole Blood 139 mg/dL (70-110)
[2024-11-15] MEDS: SODIUM CHLORIDE 0.9% 1,000 ML IV SCH (11:53)
[2024-11-15] MEDS: INSULIN ASPART (NovoLOG) 100 UNIT/ML VIAL SQ SCH (11:53)
[2024-11-15] MEDS: ACETAMINOPHEN TAB 325 MG TAB PO PRN (12:32)
[2024-11-15] MEDS: MORPHINE SULFATE 4 MG/ML SYRINGE IVP PRN (13:28)
--- NOTE | 2024-11-15 16:22 | P.HPIM ---
History of Present Illness H&P Date: 11/15/24 History of present illness: 49-year-old female with past medical history significant for atrial fibri llation, diabetes mellitus, seizure disorder, history of, with Guillain-Wall, history of sacral ulcers, colostomy, chronic Goff's catheter, history of ESBL. Patient presented from [facility] for suprapubic pain, patient reported history of recurrent UTIs, history of ESBL E. coli in the past. Patient's indwelling Goff's catheter was changed one 1 day prior in the ED, and UA was sent. Patient also reported history of ureteral stones with stent placement. Patient denied any fever, chills, sore throat, productive cough, chest pain, palpitation, vomiting or compression abdominal pain. Patient is afebrile, heart rate 74, respiratory rate 17, blood pressure 116/62, saturating 93% on room air. WBCs 11.06, hemoglobin 13.8, platelet 214. BMP unremarkable. UA on 11/14 was positive. Urine culture from 11/13 growing gram-negative bacilli. Previous urine culture showed Enterococcus in March 2024, Pseudomonas in February 2024. CT abdomen pelvis on 11/13 showed no stones or hydronephrosis. Assessment and plan: UTI: History of ESBL History of recurrent UTIs Chronic indwelling Goff's catheter Colostomy: History of Guillain-Wall syndrome: History of sacral ulcers: History of renal stone, ureteral stents: Presented with suprapubic pain, has indwelling Goff's catheter in place Recent 11/13 CT abdomen pelvis was negative for stone or hydronephrosis Urine culture from 11/13 growing gram-negative bacilli Continue Zosyn ID consult Urology consultfollows Dr. Thompson Paroxysmal atrial fibrillation: Continue Eliquis, metoprolol DVT prophylaxis Anticoagulated Disposition: From [facility] Monitor vital signs and labs Labs and medication were reviewed. Continue same treatment. Further recommendations as per clinical course of the patient REVIEW OF SYSTEMS: CONSTITUTIONAL: No fever, no malaise, no fatigue. HEENT: No recent visual problems or hearing problems. Denied any sore throat. CARDIOVASCULAR: No chest pain, orthopnea, PND, no palpitations, no syncope. PULMONARY: No shortness of breath, no cough, no hemoptysis. GASTROINTESTINAL: No diarrhea, no nausea, no vomiting, no abdominal pain. NEUROLOGICAL: No headaches, no weakness, no numbness. HEMATOLOGICAL: Denies any bleeding or petechiae. GENITOURINARY: Complains of suprapubic pain. MUSCULOSKELETAL/RHEUMATOLOGICAL: Denies any joint pain, swelling, or any muscle pain. ENDOCRINE: Denies any polyuria or polydipsia. The rest of the 14-point review of systems is negative. PHYSICAL EXAMINATION: GENERAL: The patient is A&O x3, NAD HEENT: EOMI, Sclerae anicteric, Moist Mucous membranes Neck: Supple, Non tender, No JVD PULMONARY: Equal breath souds B/L, No wheezing, No crackles. CARDIOVASCULAR: S1, S2 present. No murmurs, rubs, or gallops. ABDOMEN: Soft, nontender, nondistended, normoactive bowel sounds. No guarding or rebound tenderness. Colostomy in place. MUSCULOSKELETAL: No edema, No cyanosis. No clubbing. Normal ROM. Intact peripheral pulses. NEUROLOGICAL: CN 2-12 grossly intact. No FND Dictation was produced using [employer] dictation software. please excuse any grammatical, word or spelling errors. Past Medical History Past Medical History: Atrial Fibrillation, Diabetes Mellitus, GERD/Reflux, Seizure Disorder Additional Past Medical History / Comment(s): admitted to [facility] May 2022 for sepsis/uti,acute renal failure. 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 uses a beata lift,goff catheter,colostomy,chronic inflammatory demyelinating polyneuritis,anemia,date of last seizure unk History of Any Multi-Drug Resistant Organisms: ESBL Date of last positivie culture/infection: 11/17/23 ESBL E.coli MDRO Source:: Urine Past Surgical History: Appendectomy Additional Past Surgical History / Comment(s): Urethral stents x 3., colostomy, debridement of coccyx wound. Past Anesthesia/Blood Transfusion Reactions: No Reported Reaction Past Psychological History: No Psychological Hx Reported Smoking Status: Never smoker Past Alcohol Use History: None Reported Past Drug Use History: None Reported - Past Family History Father History Unknown: Yes Medications and Allergies Home Medications Medication Instructions Recorded Confirmed Type Acetaminophen Tab [Tylenol] 650 mg PO Q6H PRN 06/18/22 11/14/24 History Apixaban [Eliquis] 5 mg PO BID 06/18/22 11/14/24 History Baclofen 5 mg PO BID 06/18/22 11/14/24 History Multivitamins, Thera [Multivitamin 1 tab PO DAILY 06/18/22 11/14/24 History (formulary)] Oxybutynin Chloride [oxyBUTYnin 15 mg PO DAILY 06/18/22 11/14/24 History chloride ER] Cholecalciferol [Vitamin D3 (25 25 mcg PO DAILY 11/19/23 11/14/24 History Mcg = 1000 Iu)] Docusate Sodium [Dok] 100 mg PO DAILY 11/19/23 11/14/24 History Famotidine [Pepcid] 20 mg PO DAILY 11/19/23 11/14/24 History Insulin Lispro [humaLOG Kwikpen] See Protocol SQ ACHS 11/19/23 11/14/24 History Magnesium Oxide [Mag-Ox] 400 mg PO BID 11/19/23 11/14/24 History Suvorexant [Belsomra] 15 mg PO HS 11/19/23 11/14/24 History Ondansetron [Zofran] 4 mg PO Q6H PRN 03/13/24 11/14/24 History levETIRAcetam [Keppra] 750 mg PO BID 03/13/24 11/14/24 History Ascorbic Acid [Vitamin C] 500 mg PO BID 04/01/24 11/14/24 History Cranberry Fruit [Cranberry] 465 mg PO BID 04/01/24 11/14/24 History Ergocalciferol (Vitamin D2) 1,250 mcg PO WE 04/01/24 11/14/24 History [Drisdol (50,000 Iu)] Ferrous Sulfate [Iron (65 MG 325 mg PO BID 04/01/24 11/14/24 History Elemental)] Flecainide Acetate [Tambocor] 50 mg PO Q12H 04/01/24 11/14/24 History Folic Acid 1 mg PO DAILY 04/01/24 11/14/24 History Metoprolol Succinate (ER) [Toprol 12.5 mg PO DAILY 04/01/24 11/14/24 History XL] Gabapentin [Neurontin] 300 mg PO TID 11/14/24 11/14/24 History HYDROcodone/APAP 10-325MG [[place] 1 tab PO Q4HR PRN 11/14/24 11/14/24 History 10-325] Insulin Glargine,Hum.rec.anlog 15 units SQ HS 11/14/24 11/14/24 History [Lantus Solostar Pen] Mylanta Double Strength 10 ml PO Q4H PRN 11/14/24 11/14/24 History Phenazopyridine [Pyridium] 100 mg PO ONCE 11/14/24 11/14/24 History Semaglutide [Ozempic] 2 mg SQ ARELLANO 11/14/24 11/14/24 History Venlafaxine HCl [Effexor XR] 150 mg PO DAILY 11/14/24 11/14/24 History Allergies Allergy/AdvReac Type Severity Reaction Status Date / Time shellfish derived [Shellfish] Allergy Unknown Verified 11/14/24 18:04 strawberry Allergy Unknown Verified 11/14/24 18:04 Physical Exam Vitals: Vital Signs Temp Pulse Pulse Resp BP BP Pulse Ox 11/15/24 14:36 98.5 F 74 17 116/62 93 L 11/15/24 10:11 18 11/15/24 07:20 98.1 F 81 18 88/50 98 11/15/24 01:21 98.8 F 92 19 90/52 92 L 11/14/24 22:05 98.5 F 81 17 104/64 97 11/14/24 21:08 98.3 F 77 18 103/68 95 Intake and Output 11/15/24 11/15/24 11/15/24 06:59 14:59 22:59 Intake Total 250 Output Total 275 Balance -275 250 Intake: Oral 250 Output: Urine 275 Other: Voiding Method Indwelling Catheter # Bowel Movements 1 1 Weight 112.945 kg Results CBC & Chem 7: 11/15/24 02:41 11/15/24 02:41 Labs: Abnormal Lab Results - Last 24 Hours (Table) 11/15/24 11/15/24 11/15/24 Range/Units 02:41 02:41 06:09 WBC 11.06 H (4.50-10.00) X 10*3/uL MCHC 31.0 L (32.0-37.0) g/dL Neutrophils # 9.80 H (1.80-7.70) X 10*3/uL Lymphocytes # 0.62 L (0.90-5.00) X 10*3/uL Glucose 169 H (70-110) mg/dL POC Glucose (mg/dL) 165 H (70-110) mg/dL Calcium 8.5 L (8.7-10.3) mg/dL 11/15/24 Range/Units 11:40 WBC (4.50-10.00) X 10*3/uL MCHC (32.0-37.0) g/dL Neutrophils # (1.80-7.70) X 10*3/uL Lymphocytes # (0.90-5.00) X 10*3/uL Glucose (70-110) mg/dL POC Glucose (mg/dL) 139 H (70-110) mg/dL Calcium (8.7-10.3) mg/dL Thrombosis Risk Factor Assmnt - Choose All That Apply Any of the Below Risk Factors Present?: Yes Each Factor Represents 1 point: Age 41-60 years Other Risk Factors: No Thrombosis Risk Factor Assessment Total Risk Factor Score: 1 Thrombosis Risk Factor Assessment Level: Low Risk
[2024-11-15 16:39] LABS: Glucose,Whole Blood 153 mg/dL (70-110)
[2024-11-15] MEDS: SUVOREXANT 15 MG PO SCH (20:07)
[2024-11-15] MEDS: INSULIN DETEMIR (LEVEMIR) 100 UNIT/ML SYR SQ SCH (20:11)
[2024-11-15 20:25] LABS: Glucose,Whole Blood 149 mg/dL (70-110)
[2024-11-16 06:12] LABS: Glucose,Whole Blood 91 mg/dL (70-110)
[2024-11-16 09:12] LABS: Basophils # (A) 0.01 X 10*3/uL (0.00-0.10); Basophils % (A) 0.2 %; Eosinophils # (A) 0.56 X 10*3/uL (0.04-0.35); Eosinophils % (A) 10.8 %; HCT 39.4 % (37.2-46.3); HGB 12.2 g/dL (12.0-15.0); Lymphocytes # (A) 0.74 X 10*3/uL (0.90-5.00); Lymphocytes % (A) 14.3 %; MCH 30.1 pg (27.0-32.0); MCV 97.3 FL (80.0-97.0); Mean Platelet Volume 10.4 FL (9.5-12.2); Monocytes # (A) 0.42 X 10*3/uL (0.20-1.00); Monocytes % (A) 8.1 %; NRBC Per 100 WBC 0 X 10*3/uL (0.00-0.01); Neutrophils # (A) 3.45 X 10*3/uL (1.80-7.70); Neutrophils % (A) 66.4 %; Platelet Count 194 X 10*3/uL (140-440); RBC 4.05 X 10*6/uL (4.10-5.20); RDW 13.2 % (11.5-14.5); WBC 5.19 X 10*3/uL (4.50-10.00)
[2024-11-16] MEDS: CHOLECALCIFEROL 25 MCG (1000 IU) TABLET PO SCH (09:23)
[2024-11-16] MEDS: MULTIVITAMINS, THERA 1 EACH TAB PO SCH (09:23)
[2024-11-16] MEDS: ERGOCALCIFEROL 1,250 MCG (50,000 IU) CAPSULE PO SCH (09:25)
[2024-11-16 09:35] LABS: BUN/Creat Ratio 14.55 Ratio (12.00-20.00); Calcium 7.9 mg/dL (8.7-10.3); Chloride 103 mmol/L (96-109); Glucose 106 mg/dL (70-110); Sodium 138 mmol/L (135-145)
[2024-11-16 11:27] LABS: Glucose,Whole Blood 113 mg/dL (70-110)
--- NOTE | 2024-11-16 14:57 | P.GSCN ---
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 She is a retired nurse. She has a long history of voiding dysfunction and failed conservative treatment. She has therefore used an indwelling Goff catheter for the past several years. As a result, she has been treated for recurrent UTIs. She also has a history of kidney stones. She is currently admitted with bladder pain and pressure, which she believes are due to spasms. She resides at [facility] on [facility]. Her Goff catheter is changed every 3 weeks on average. Review of Systems - Constitutional Denies chills, Denies fever - Genitourinary Genitourinary: Reports as per HPI Past Medical History Past Medical History: Atrial Fibrillation, Diabetes Mellitus, GERD/Reflux, Seizure Disorder Additional Past Medical History / Comment(s): admitted to [facility] May 2022 for sepsis/uti,acute renal failure. 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 uses a beata lift,goff catheter,colostomy,chronic inflammatory demyelinating polyneuritis,anemia,date of last seizure unk History of Any Multi-Drug Resistant Organisms: ESBL Year Discovered:: 11/17/23 ESBL E.coli MDRO Source:: Urine Past Surgical History: Appendectomy Additional Past Surgical History / Comment(s): Urethral stents x 3., colostomy, debridement of coccyx wound. Past Anesthesia/Blood Transfusion Reactions: No Reported Reaction Past Psychological History: No Psychological Hx Reported Smoking Status: Never smoker Past Alcohol Use History: None Reported Past Drug Use History: None Reported - Past Family History Father History Unknown: Yes Medications and Allergies Home Medications Medication Instructions Recorded Confirmed Type Acetaminophen Tab [Tylenol] 650 mg PO Q6H PRN 06/18/22 11/14/24 History Apixaban [Eliquis] 5 mg PO BID 06/18/22 11/14/24 History Baclofen 5 mg PO BID 06/18/22 11/14/24 History Multivitamins, Thera [Multivitamin 1 tab PO DAILY 06/18/22 11/14/24 History (formulary)] Oxybutynin Chloride [oxyBUTYnin 15 mg PO DAILY 06/18/22 11/14/24 History chloride ER] Cholecalciferol [Vitamin D3 (25 25 mcg PO DAILY 11/19/23 11/14/24 History Mcg = 1000 Iu)] Docusate Sodium [Dok] 100 mg PO DAILY 11/19/23 11/14/24 History Famotidine [Pepcid] 20 mg PO DAILY 11/19/23 11/14/24 History Insulin Lispro [humaLOG Kwikpen] See Protocol SQ ACHS 11/19/23 11/14/24 History Magnesium Oxide [Mag-Ox] 400 mg PO BID 11/19/23 11/14/24 History Suvorexant [Belsomra] 15 mg PO HS 11/19/23 11/14/24 History Ondansetron [Zofran] 4 mg PO Q6H PRN 03/13/24 11/14/24 History levETIRAcetam [Keppra] 750 mg PO BID 03/13/24 11/14/24 History Ascorbic Acid [Vitamin C] 500 mg PO BID 04/01/24 11/14/24 History Cranberry Fruit [Cranberry] 465 mg PO BID 04/01/24 11/14/24 History Ergocalciferol (Vitamin D2) 1,250 mcg PO WE 04/01/24 11/14/24 History [Drisdol (50,000 Iu)] Ferrous Sulfate [Iron (65 MG 325 mg PO BID 04/01/24 11/14/24 History Elemental)] Flecainide Acetate [Tambocor] 50 mg PO Q12H 04/01/24 11/14/24 History Folic Acid 1 mg PO DAILY 04/01/24 11/14/24 History Metoprolol Succinate (ER) [Toprol 12.5 mg PO DAILY 04/01/24 11/14/24 History XL] Gabapentin [Neurontin] 300 mg PO TID 11/14/24 11/14/24 History HYDROcodone/APAP 10-325MG [[place] 1 tab PO Q4HR PRN 11/14/24 11/14/24 History 10-325] Insulin Glargine,Hum.rec.anlog 15 units SQ HS 11/14/24 11/14/24 History [Lantus Solostar Pen] Mylanta Double Strength 10 ml PO Q4H PRN 11/14/24 11/14/24 History Phenazopyridine [Pyridium] 100 mg PO ONCE 11/14/24 11/14/24 History Semaglutide [Ozempic] 2 mg SQ ARELLANO 11/14/24 11/14/24 History Venlafaxine HCl [Effexor XR] 150 mg PO DAILY 11/14/24 11/14/24 History Allergies Allergy/AdvReac Type Severity Reaction Status Date / Time shellfish derived [Shellfish] Allergy Unknown Verified 11/14/24 18:04 strawberry Allergy Unknown Verified 11/14/24 18:04 Surgical - Exam Vital Signs Temp Pulse Resp BP Pulse Ox 98.2 F 68 18 107/70 95 11/14/24 13:52 11/14/24 13:52 11/14/24 13:52 11/14/24 13:52 11/14/24 13:52 - General well developed, well nourished, no distress - Respiratory normal respiratory effort - Abdomen Soft, non-distended, no mass. Suprapubic tenderness is noted. LLQ colostomy. - Psychiatric oriented to time, oriented to person, oriented to place, speech is normal, memory intact Results - Labs 11/16/24 03:23 11/16/24 03:23 Abnormal Lab Results - Last 24 Hours (Table) 11/15/24 11/15/24 11/15/24 Range/Units 11:40 16:38 20:24 RBC (4.10-5.20) X 10*6/uL MCV (80.0-97.0) FL MCHC (32.0-37.0) g/dL Lymphocytes # (0.90-5.00) X 10*3/uL Eosinophils # (0.04-0.35) X 10*3/uL POC Glucose (mg/dL) 139 H 153 H 149 H (70-110) mg/dL Hemoglobin A1c (<=6.0) % Calcium (8.7-10.3) mg/dL 11/16/24 11/16/24 11/16/24 Range/Units 03:23 03:23 03:23 RBC 4.05 L (4.10-5.20) X 10*6/uL MCV 97.3 H (80.0-97.0) FL MCHC 31.0 L (32.0-37.0) g/dL Lymphocytes # 0.74 L (0.90-5.00) X 10*3/uL Eosinophils # 0.56 H (0.04-0.35) X 10*3/uL POC Glucose (mg/dL) (70-110) mg/dL Hemoglobin A1c 6.4 H (<=6.0) % Calcium 7.9 L (8.7-10.3) mg/dL Microbiology - Last 24 Hours (Table) 11/14/24 16:55 Blood Culture - Preliminary Blood Diabetes panel 11/16/24 11/16/24 Range/Units 03:23 03:23 Sodium 138 (135-145) mmol/L Potassium 4.0 (3.5-5.5) mmol/L Chloride 103 (96-109) mmol/L Carbon Dioxide 28.0 (21.6-31.8) mmol/L BUN 16.0 (9.0-27.0) mg/dL Creatinine 1.1 (0.6-1.5) mg/dL Glucose 106 (70-110) mg/dL Hemoglobin A1c 6.4 H (<=6.0) % Calcium 7.9 L (8.7-10.3) mg/dL Calcium panel 11/16/24 Range/Units 03:23 Calcium 7.9 L (8.7-10.3) mg/dL Pituitary panel 11/16/24 Range/Units 03:23 Sodium 138 (135-145) mmol/L Potassium 4.0 (3.5-5.5) mmol/L Chloride 103 (96-109) mmol/L Carbon Dioxide 28.0 (21.6-31.8) mmol/L BUN 16.0 (9.0-27.0) mg/dL Creatinine 1.1 (0.6-1.5) mg/dL Glucose 106 (70-110) mg/dL Calcium 7.9 L (8.7-10.3) mg/dL Adrenal panel 11/16/24 Range/Units 03:23 Sodium 138 (135-145) mmol/L Potassium 4.0 (3.5-5.5) mmol/L Chloride 103 (96-109) mmol/L Carbon Dioxide 28.0 (21.6-31.8) mmol/L BUN 16.0 (9.0-27.0) mg/dL Creatinine 1.1 (0.6-1.5) mg/dL Glucose 106 (70-110) mg/dL Calcium 7.9 L (8.7-10.3) mg/dL - Imaging CT scan - abdomen: report reviewed, image reviewed Assessment and Plan (1) UTI (urinary tract infection) Current Visit: Yes Status: Acute Code(s): N39.0 - URINARY TRACT INFECTION, SITE NOT SPECIFIED SNOMED Code(s): 39543442 Plan: The patient likely has a catheter associated UTI. Her Goff catheter has been changed. Blood cultures were sent, and she is receiving Zosyn. I have also ordered a urine culture. She is followed by Dr. Dickens and has an appointment to see him next week. She is interested in supravesical urinary diversion, which I believe she would benefit from, and I discussed the pros and cons of this with her. We also discussed whether or not a cystectomy would be required. She will discuss this further with Dr. Dickens when she sees him next week. Please notify me if I can be of any further assistance during this hospitalization. Time with Patient: Greater than 30
--- NOTE | 2024-11-16 14:59 | P.PN ---
Subjective Progress Note Date: 11/16/24 Interval History: History of present illness: 49-year-old female with past medical history significant for atrial fibrillation, diabetes mellitus, seizure disorder, history of, with Guillain- Wall, history of sacral ulcers, colostomy, chronic Calderon's catheter, history of ESBL. Patient presented from [facility] for suprapubic pain, patient reported history of recurrent UTIs, history of ESBL E. coli in the past. Patient's indwelling Calderon's catheter was changed one 1 day prior in the ED, and UA was sent. Saranya ent also reported history of ureteral stones with stent placement. Patient denied any fever, chills, sore throat, productive cough, chest pain, palpitation, vomiting or compression abdominal pain. Patient is afebrile, heart rate 74, respiratory rate 17, blood pressure 116/62, saturating 93% on room air. WBCs 11.06, hemoglobin 13.8, platelet 214. BMP unremarkable. UA on 11/14 was positive. Urine culture from 11/13 growing gram-negative bacilli. Previous urine culture showed Enterococcus in March 2024, Pseudomonas in February 2024. CT abdomen pelvis on 11/13 showed no stones or hydronephrosis. 11/16--patient was seen and examined today. No issues overnight. Vital stable. Remained afebrile. Urine culture pending. CBC unremarkable. BMP unremarkable. HbA1c 6.4. Urology evaluated the patient, recommended outpatient follow-up with urology. Currently on Zosyn, infectious disease following. Assessment and plan: UTI: History of ESBL History of recurrent UTIs Chronic indwelling Calderon's catheter Colostomy: History of Guillain-Wall syndrome: History of sacral ulcers: History of renal stone, ureteral stents: Presented with suprapubic pain, has indwelling Calderon's catheter in place Recent 11/13 CT abdomen pelvis was negative for stone or hydronephrosis Urine culture from 11/13 growing gram-negative bacilli Continue Zosyn ID consulted Urology consultfollows Dr. Thompson, urology recommended outpatient follow-up. Paroxysmal atrial fibrillation: Continue Eliquis, metoprolol DVT prophylaxis Anticoagulated Disposition: From [facility] Monitor vital signs and labs Labs and medication were reviewed. Continue same treatment. Further recommendations as per clinical course of the patient REVIEW OF SYSTEMS: CONSTITUTIONAL: No fever, no malaise, no fatigue. HEENT: No recent visual problems or hearing problems. Denied any sore throat. CARDIOVASCULAR: No chest pain, orthopnea, PND, no palpitations, no syncope. PULMONARY: No shortness of breath, no cough, no hemoptysis. GASTROINTESTINAL: No diarrhea, no nausea, no vomiting, no abdominal pain. NEUROLOGICAL: No headaches, no weakness, no numbness. HEMATOLOGICAL: Denies any bleeding or petechiae. GENITOURINARY: Complains of suprapubic pain. MUSCULOSKELETAL/RHEUMATOLOGICAL: Denies any joint pain, swelling, or any muscle pain. ENDOCRINE: Denies any polyuria or polydipsia. The rest of the 14-point review of systems is negative. PHYSICAL EXAMINATION: GENERAL: The patient is A&O x3, NAD HEENT: EOMI, Sclerae anicteric, Moist Mucous membranes Neck: Supple, Non tender, No JVD PULMONARY: Equal breath souds B/L, No wheezing, No crackles. CARDIOVASCULAR: S1, S2 present. No murmurs, rubs, or gallops. ABDOMEN: Soft, nontender, nondistended, normoactive bowel sounds. No guarding or rebound tenderness. Colostomy in place. MUSCULOSKELETAL: No edema, No cyanosis. No clubbing. Normal ROM. Intact peripheral pulses. NEUROLOGICAL: CN 2-12 grossly intact. No FND Dictation was produced using 7-bit[employer] dictation software. please excuse any grammatical, word or spelling errors. Objective - Vital Signs Vital signs: Vital Signs Temp 98.1 F 11/16/24 07:06 Pulse 63 11/16/24 07:06 Resp 19 11/16/24 07:06 BP 108/65 11/16/24 07:06 Pulse Ox 94 L 11/16/24 07:06 FiO2 Intake & Output 11/15/24 11/16/24 11/16/24 18:59 06:59 18:59 Intake Total 450 Output Total 300 1000 1100 Balance 150 -1000 -1100 Intake: Oral 450 Output: Urine 300 1000 1100 Other: Voiding Method Indwelling Catheter Indwelling Catheter Indwelling Catheter # Voids 1 # Bowel Movements 1 - Labs CBC & Chem 7: 11/16/24 03:23 11/16/24 03:23 Labs: Abnormal Lab Results - Last 24 Hours (Table) 11/15/24 11/15/24 11/16/24 Range/Units 16:38 20:24 03:23 RBC (4.10-5.20) X 10*6/uL MCV (80.0-97.0) FL MCHC (32.0-37.0) g/dL Lymphocytes # (0.90-5.00) X 10*3/uL Eosinophils # (0.04-0.35) X 10*3/uL POC Glucose (mg/dL) 153 H 149 H (70-110) mg/dL Hemoglobin A1c 6.4 H (<=6.0) % Calcium (8.7-10.3) mg/dL 11/16/24 11/16/24 11/16/24 Range/Units 03:23 03:23 11:26 RBC 4.05 L (4.10-5.20) X 10*6/uL MCV 97.3 H (80.0-97.0) FL MCHC 31.0 L (32.0-37.0) g/dL Lymphocytes # 0.74 L (0.90-5.00) X 10*3/uL Eosinophils # 0.56 H (0.04-0.35) X 10*3/uL POC Glucose (mg/dL) 113 H (70-110) mg/dL Hemoglobin A1c (<=6.0) % Calcium 7.9 L (8.7-10.3) mg/dL Microbiology - Last 24 Hours (Table) 11/14/24 16:55 Blood Culture - Preliminary Blood
[2024-11-16 16:38] LABS: Glucose,Whole Blood 158 mg/dL (70-110)
[2024-11-16 20:17] LABS: Glucose,Whole Blood 112 mg/dL (70-110)
--- NOTE | 2024-11-16 22:04 | P.CONS ---
History of Present Illness - Reason for Consult Consult date: 11/15/24 UTI history of ESBL Requesting physician: Shelley Carpio - Chief Complaint Suprapubic pain burning urine x few days - History of Present Illness Patient is a 49-year-old female with a past medical history significant for diabetes mellitus reflux seizure disorder atrial fibrillation presenting to the hospital for evaluation of suprapubic pain patient did have a chronic indwelling Goff catheter that apparently was seen the day before presentation to the hospital however with worsening symptoms patient has been sent to the ER concerning for drug-resistant UTI patient denies having any fever or any chills denies any headache or URI symptom no chest pain shortness of breath or cough has been complaining of some nausea but no vomiting suprapubic pain mostly dull aching mild to moderate intensity with associated burning of urine no diarrhea no hematuria on presentation to the hospital the patient was afebrile no fever have been recorded subsequently patient was not tachycardic hypotensive or hypoxic and no need for supplemental oxygen patient did have w koffi count of 11.06 creatinine is 1.0 UA has been positive cultures are currently pending patient started on Zosyn admitted to hospital infectious disease was consulted for further management of antibiotic therapy Review of Systems Positive point and negatives has been mentioned in the HPI, complete review of systems was performed and all other systems are negative Past Medical History Past Medical History: Atrial Fibrillation, Diabetes Mellitus, GERD/Reflux, Seizure Disorder Additional Past Medical History / Comment(s): admitted to [facility] May 2022 for sepsis/uti,acute renal failure. 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 uses a beata lift,goff catheter,colostomy,chronic inflammatory demyelinating polyneuritis,anemia,date of last seizure unk History of Any Multi-Drug Resistant Organisms: ESBL Year Discovered:: 11/17/23 ESBL E.coli MDRO Source:: Urine Past Surgical History: Appendectomy Additional Past Surgical History / Comment(s): Urethral stents x 3., colostomy, debridement of coccyx wound. Past Anesthesia/Blood Transfusion Reactions: No Reported Reaction Past Psychological History: No Psychological Hx Reported Smoking Status: Never smoker Past Alcohol Use History: None Reported Past Drug Use History: None Reported - Past Family History Father History Unknown: Yes Medications and Allergies Home Medications Medication Instructions Recorded Confirmed Type Acetaminophen Tab [Tylenol] 650 mg PO Q6H PRN 06/18/22 11/14/24 History Apixaban [Eliquis] 5 mg PO BID 06/18/22 11/14/24 History Baclofen 5 mg PO BID 06/18/22 11/14/24 History Multivitamins, Thera [Multivitamin 1 tab PO DAILY 06/18/22 11/14/24 History (formulary)] Oxybutynin Chloride [oxyBUTYnin 15 mg PO DAILY 06/18/22 11/14/24 History chloride ER] Cholecalciferol [Vitamin D3 (25 25 mcg PO DAILY 11/19/23 11/14/24 History Mcg = 1000 Iu)] Docusate Sodium [Dok] 100 mg PO DAILY 11/19/23 11/14/24 History Famotidine [Pepcid] 20 mg PO DAILY 11/19/23 11/14/24 History Insulin Lispro [humaLOG Kwikpen] See Protocol SQ ACHS 11/19/23 11/14/24 History Magnesium Oxide [Mag-Ox] 400 mg PO BID 11/19/23 11/14/24 History Suvorexant [Belsomra] 15 mg PO HS 11/19/23 11/14/24 History Ondansetron [Zofran] 4 mg PO Q6H PRN 03/13/24 11/14/24 History levETIRAcetam [Keppra] 750 mg PO BID 03/13/24 11/14/24 History Ascorbic Acid [Vitamin C] 500 mg PO BID 04/01/24 11/14/24 History Cranberry Fruit [Cranberry] 465 mg PO BID 04/01/24 11/14/24 History Ergocalciferol (Vitamin D2) 1,250 mcg PO WE 04/01/24 11/14/24 History [Drisdol (50,000 Iu)] Ferrous Sulfate [Iron (65 MG 325 mg PO BID 04/01/24 11/14/24 History Elemental)] Flecainide Acetate [Tambocor] 50 mg PO Q12H 04/01/24 11/14/24 History Folic Acid 1 mg PO DAILY 04/01/24 11/14/24 History Metoprolol Succinate (ER) [Toprol 12.5 mg PO DAILY 04/01/24 11/14/24 History XL] Gabapentin [Neurontin] 300 mg PO TID 11/14/24 11/14/24 History HYDROcodone/APAP 10-325MG [[place] 1 tab PO Q4HR PRN 11/14/24 11/14/24 History 10-325] Insulin Glargine,Hum.rec.anlog 15 units SQ HS 11/14/24 11/14/24 History [Lantus Solostar Pen] Mylanta Double Strength 10 ml PO Q4H PRN 11/14/24 11/14/24 History Phenazopyridine [Pyridium] 100 mg PO ONCE 11/14/24 11/14/24 History Semaglutide [Ozempic] 2 mg SQ ARELLANO 11/14/24 11/14/24 History Venlafaxine HCl [Effexor XR] 150 mg PO DAILY 11/14/24 11/14/24 History Allergies Allergy/AdvReac Type Severity Reaction Status Date / Time shellfish derived [Shellfish] Allergy Unknown Verified 11/14/24 18:04 strawberry Allergy Unknown Verified 11/14/24 18:04 Physical Exam Vitals: Vital Signs Temp Pulse Pulse Resp BP BP Pulse Ox 11/15/24 10:11 18 11/15/24 07:20 98.1 F 81 18 88/50 98 11/15/24 01:21 98.8 F 92 19 90/52 92 L 11/14/24 22:05 98.5 F 81 17 104/64 97 11/14/24 21:08 98.3 F 77 18 103/68 95 11/14/24 13:52 98.2 F 68 18 107/70 95 Intake and Output 11/14/24 11/15/24 11/15/24 22:59 06:59 14:59 Output Total 275 Balance -275 Output: Urine 275 Other: Voiding Method Indwelling Catheter # Bowel Movements 1 Weight 112.945 kg GENERAL DESCRIPTION: Middle-aged female lying in bed, no distress. No tachypnea or accessory muscle of respiration use. HEENT: Shows Pallor , no scleral icterus. Oral mucous membrane is dry. NECK: Trachea central, no thyromegaly. LUNGS: Unlabored breathing. Clear to auscultation anteriorly. No wheeze or crackle. HEART: S1, S2, regular rate and rhythm. No loud murmur ABDOMEN: Soft, no tenderness , EXTREMITIES: No edema of feet. SKIN: No rash, no masses palpable. NEUROLOGICAL: The patient is awake, alert, oriented x3, mood and affect normal. Results CBC & Chem 7: 11/16/24 03:23 11/16/24 03:23 Labs: Abnormal Lab Results - Last 24 Hours (Table) 11/14/24 11/14/24 11/15/24 Range/Units 15:12 15:12 02:41 WBC 11.06 H (4.50-10.00) X 10*3/uL MCHC 31.0 L (32.0-37.0) g/dL Neutrophils # 9.80 H (1.80-7.70) X 10*3/uL Lymphocytes # 0.62 L (0.90-5.00) X 10*3/uL Sodium 134 L (137-145) mmol/L Potassium 5.4 H (3.5-5.1) mmol/L Glucose 124 H (74-99) mg/dL POC Glucose (mg/dL) (70-110) mg/dL Calcium (8.7-10.3) mg/dL Urine Protein 1+ H (Negative) Urine Blood Large H (Negative) Ur Leukocyte Esterase Large H (Negative) Urine RBC >182 H (0-5) /hpf Urine WBC 28 H (0-5) /hpf Urine Bacteria Many H (None) /hpf 11/15/24 11/15/24 Range/Units 02:41 06:09 WBC (4.50-10.00) X 10*3/uL MCHC (32.0-37.0) g/dL Neutrophils # (1.80-7.70) X 10*3/uL Lymphocytes # (0.90-5.00) X 10*3/uL Sodium (137-145) mmol/L Potassium (3.5-5.1) mmol/L Glucose 169 H (74-99) mg/dL POC Glucose (mg/dL) 165 H (70-110) mg/dL Calcium 8.5 L (8.7-10.3) mg/dL Urine Protein (Negative) Urine Blood (Negative) Ur Leukocyte Esterase (Negative) Urine RBC (0-5) /hpf Urine WBC (0-5) /hpf Urine Bacteria (None) /hpf Assessment and Plan (1) UTI (urinary tract infection) Current Visit: Yes Status: Acute Code(s): N39.0 - URINARY TRACT INFECTION, SITE NOT SPECIFIED SNOMED Code(s): 72207322 Plan: 1patient presented to hospital with burning of urine suprapubic discomfort and this patient did have a chronic draining Goff catheter that apparently was changed day before presentation to the hospital and subsequently removed concerning for symptomatic UTI likely from enteric gram-negative pathogen 2patient has been started on Zosyn continue following waiting for the culture to finalize We will follow on clinical condition and cultures to further adjust medication if needed Thank you for this consultation we will follow the patient along with you Dictation was produced using [employer] dictation software. please excuse any grammatical, word or spelling errors. Time with Patient: Greater than 30
--- NOTE | 2024-11-16 22:07 | P.PN ---
Subjective Progress Note Date: 11/16/24 Principal diagnosis: Reason for follow-up is urinary tract infection Patient is a 49-year-old female with a past medical history significant for diabetes mellitus reflux seizure disorder atrial fibrillation presenting to the hospital for evaluation of suprapubic pain and this patient did have history of urine retention requiring chronic indwelling Calderon catheter did have a positive UA along with urinary symptoms, concerning for symptomatic aortic infection On today's evaluation that is 11/16/2024,the patient denies any fever or any chills, patient is breathing comfortably on room air, the patient denies chest pain shortness of breath and no significant cough, patient lower abdominal pain slightly decreased intensity nausea but no vomiting and no diarrhea. Patient white count is down to 5.19 creat is 1.1 cultures are currently pending Objective - Vital Signs Vital signs: Vital Signs Temp 97.9 F 11/16/24 14:10 Pulse 76 11/16/24 14:10 Resp 17 11/16/24 14:10 BP 94/57 11/16/24 14:10 Pulse Ox 95 11/16/24 14:10 FiO2 Intake & Output 11/15/24 11/16/24 11/16/24 18:59 06:59 18:59 Intake Total 450 Output Total 300 1000 2000 Balance 150 -1000 -2000 Intake: Oral 450 Output: Urine 300 1000 2000 Other: Voiding Method Indwelling Catheter Indwelling Catheter Indwelling Catheter # Voids 1 # Bowel Movements 1 - Exam GENERAL DESCRIPTION: Middle-age female lying in bed in no distress RESPIRATORY SYSTEM: Unlabored breathing , decreased breath sounds at bases HEART: S1 S2 regular rate and rhythm , ABDOMEN: Soft , no tenderness EXTREMITIES: No edema feet - Labs CBC & Chem 7: 11/16/24 03:23 11/16/24 03:23 Labs: Abnormal Lab Results - Last 24 Hours (Table) 11/15/24 11/15/24 11/16/24 Range/Units 16:38 20:24 03:23 RBC (4.10-5.20) X 10*6/uL MCV (80.0-97.0) FL MCHC (32.0-37.0) g/dL Lymphocytes # (0.90-5.00) X 10*3/uL Eosinophils # (0.04-0.35) X 10*3/uL POC Glucose (mg/dL) 153 H 149 H (70-110) mg/dL Hemoglobin A1c 6.4 H (<=6.0) % Calcium (8.7-10.3) mg/dL 11/16/24 11/16/24 11/16/24 Range/Units 03:23 03:23 11:26 RBC 4.05 L (4.10-5.20) X 10*6/uL MCV 97.3 H (80.0-97.0) FL MCHC 31.0 L (32.0-37.0) g/dL Lymphocytes # 0.74 L (0.90-5.00) X 10*3/uL Eosinophils # 0.56 H (0.04-0.35) X 10*3/uL POC Glucose (mg/dL) 113 H (70-110) mg/dL Hemoglobin A1c (<=6.0) % Calcium 7.9 L (8.7-10.3) mg/dL Microbiology - Last 24 Hours (Table) 11/14/24 16:55 Blood Culture - Preliminary Blood Assessment and Plan (1) UTI (urinary tract infection) Current Visit: Yes Status: Acute Code(s): N39.0 - URINARY TRACT INFECTION, SITE NOT SPECIFIED SNOMED Code(s): 63562297 (2) UTI due to extended-spectrum beta lactamase (ESBL) producing Escherichia coli Current Visit: Yes Status: Acute Code(s): N39.0 - URINARY TRACT INFECTION, SITE NOT SPECIFIED; B96.29 - OTH ESCHERICHIA COLI THE CAUSE OF DISEASES CLASSD [id number]; Z16.12 - EXTENDED SPECTRUM BETA LACTAMASE (ESBL) RESISTANCE SNOMED Code(s): 122883421 Plan: 1patient presented to hospital with burning of urine suprapubic discomfort and this patient did have a chronic draining Calderon catheter that apparently was changed day before presentation to the hospital and subsequently removed concerning for symptomatic UTI likely from enteric gram-negative pathogen with a last urine culture positive for ESBL E. coli and Klebsiella 2I will discontinue Zosyn and start the patient on Invanz while waiting for repeat culture to finalize Dictation was produced using [employer] dictation software. please excuse any grammatical, word or spelling errors. Time with Patient: Less than 30
[2024-11-16] MEDS: ERTAPENEM 1 GM in SODIUM CHLORIDE 0.9% 50 ML IVPB SCH (22:37)
[2024-11-17 06:29] LABS: Glucose,Whole Blood 73 mg/dL (70-110)
[2024-11-17 11:32] LABS: Glucose,Whole Blood 96 mg/dL (70-110)
--- NOTE | 2024-11-17 13:26 | P.PN ---
Subjective Progress Note Date: 11/17/24 Principal diagnosis: Reason for follow-up is urinary tract infection Patient is a 49-year-old female with a past medical history significant for diabetes mellitus reflux seizure disorder atrial fibrillation presenting to the hospital for evaluation of suprapubic pain and this patient did have history of urine retention requiring chronic indwelling Calderon catheter did have a positive UA along with urinary symptoms, concerning for symptomatic aortic infection On today's evaluation that is 11/17/2024,the patient remains to be afebrile, patient is on room air not requiring supplemental oxygen and denies any shortness of breath no chest pain or cough.Patient denies having any nausea or vomiting, still complaining of lower abdominal discomfort and pain on urination even though she has a catheter. No labs has been no labs has been drawn today no labs has been drawn today culture from 1229 positive for ESBL for ESBL E. coli and Klebsiella Objective - Vital Signs Vital signs: Vital Signs Temp 97.7 F 11/17/24 07:11 Pulse 77 11/17/24 07:11 Resp 16 11/17/24 07:11 BP 114/74 11/17/24 07:11 Pulse Ox 93 L 11/17/24 07:11 FiO2 Intake & Output 11/16/24 11/17/24 11/17/24 18:59 06:59 18:59 Intake Total 480 Output Total 1999 1699 Balance -19990 Intake: Oral 480 Output: Urine 1999 1699 Other: Voiding Method Indwelling Catheter Indwelling Catheter - Exam GENERAL DESCRIPTION: Middle-age female lying in bed in no distress RESPIRATORY SYSTEM: Unlabored breathing , decreased breath sounds at bases HEART: S1 S2 regular rate and rhythm , ABDOMEN: Soft , no tenderness EXTREMITIES: No edema feet - Labs CBC & Chem 7: 11/16/24 03:23 11/16/24 03:23 Labs: Abnormal Lab Results - Last 24 Hours (Table) 11/16/24 11/16/24 Range/Units 16:36 20:16 POC Glucose (mg/dL) 158 H 112 H (70-110) mg/dL Microbiology - Last 24 Hours (Table) 11/14/24 16:55 Blood Culture - Preliminary Blood Assessment and Plan (1) UTI (urinary tract infection) Current Visit: Yes Status: Acute Code(s): N39.0 - URINARY TRACT INFECTION, SITE NOT SPECIFIED SNOMED Code(s): 39823937 (2) UTI due to extended-spectrum beta lactamase (ESBL) producing Escherichia coli Current Visit: Yes Status: Acute Code(s): N39.0 - URINARY TRACT INFECTION, SITE NOT SPECIFIED; B96.29 - OTH ESCHERICHIA COLI THE CAUSE OF DISEASES CLASSD ELSWHR; Z16.12 - EXTENDED SPECTRUM BETA LACTAMASE (ESBL) RESISTANCE SNOMED Code(s): 158558419 Plan: 1patient presented to hospital with burning of urine suprapubic discomfort and this patient did have a chronic draining Calderon catheter that apparently was changed day before presentation to the hospital and subsequently removed concerning for symptomatic UTI likely from enteric gram-negative pathogen with a last urine culture positive for ESBL E. coli and Klebsiella 2plan is for midline a 7-day course of IV Invanz on discharge Dictation was produced using [employer] software. please excuse any grammatical, word or spelling errors.
[2024-11-17] MEDS: LIDOCAINE 1% INJ 10MG/ML (20 ML MDV) SQ ONE ×2 (14:05→14:45)
--- NOTE | 2024-11-17 14:58 | P.PN ---
Subjective Interval History: History of present illness: 49-year-old female with past medical history significant for atrial fibrillation, diabetes mellitus, seizure disorder, history of, with Guillain- Wall, history of sacral ulcers, colostomy, chronic Calderon's catheter, history of ESBL. Patient presented from [facility] for suprapubic pain, patient reported history of recurrent UTIs, history of ESBL E. coli in the past. Patient's indwelling Calderon's catheter was changed one 1 day prior in the ED, and UA was sent. Patient also reported history of ureteral stones with stent placement. Patient denied any fever, chills, sore throat, productive cough, chest pain, palpitation, vomiting or compression abdominal pain. Patient is afebrile, heart rate 74, respiratory rate 17, blood pressure 116/62, saturating 93% on room air. WBCs 11.06, hemoglobin 13.8, platelet 214. BMP unremarkable. UA on 11/14 was positive. Urine culture from 11/13 growing gram-negative bacilli. Previous urine culture showed Enterococcus in March 2024, Pseudomonas in February 2024. CT abdomen pelvis on 11/13 showed no stones or hydronephrosis. 11/16--patient was seen and examined today. No issues overnight. Vital stable. Remained afebrile. Urine culture pending. CBC unremarkable. BMP unremarkable. HbA1c 6.4. Urology evaluated the patient, recommended outpatient follow-up with urology. Currently on Zosyn, infectious disease following. 11/17--patient was seen and examined today. No issues overnight. Afebrile, heart rate 77 respiratory rate 16 blood pressure 114/74 saturating 93% on room air. Blood culture negative so far. Urine culture from 10/2010 grew Klebsiella and E SBL E. coli. Assessment and plan: UTI: ESBL E. coli, Klebsiella History of ESBL History of recurrent UTIs Chronic indwelling Calderon's catheter Colostomy: History of Guillain-Wall syndrome: History of sacral ulcers: History of renal stone, ureteral stents: Presented with suprapubic pain, has indwelling Calderon's catheter in place Recent 11/13 CT abdomen pelvis was negative for stone or hydronephrosis Urine culture from 11/13 growing gram-negative bacilli ID consulted--on ertapenem, plan for midline and 7 days course of IV Invanz on discharge. Urology consultfollows Dr. Thompson, urology recommended outpatient follow-up. Paroxysmal atrial fibrillation: Continue Eliquis, metoprolol DVT prophylaxis Anticoagulated Disposition: From ECF Monitor vital signs and labs Labs and medication were reviewed. Continue same treatment. Further recommendations as per clinical course of the patient REVIEW OF SYSTEMS: CONSTITUTIONAL: No fever, no malaise, no fatigue. HEENT: No recent visual problems or hearing problems. Denied any sore throat. CARDIOVASCULAR: No chest pain, orthopnea, PND, no palpitations, no syncope. PULMONARY: No shortness of breath, no cough, no hemoptysis. GASTROINTESTINAL: No diarrhea, no nausea, no vomiting, no abdominal pain. NEUROLOGICAL: No headaches, no weakness, no numbness. HEMATOLOGICAL: Denies any bleeding or petechiae. GENITOURINARY: Complains of suprapubic pain. MUSCULOSKELETAL/RHEUMATOLOGICAL: Denies any joint pain, swelling, or any muscle pain. ENDOCRINE: Denies any polyuria or polydipsia. The rest of the 14-point review of systems is negative. PHYSICAL EXAMINATION: GENERAL: The patient is A&O x3, NAD HEENT: EOMI, Sclerae anicteric, Moist Mucous membranes Neck: Supple, Non tender, No JVD PULMONARY: Equal breath souds B/L, No wheezing, No crackles. CARDIOVASCULAR: S1, S2 present. No murmurs, rubs, or gallops. ABDOMEN: Soft, nontender, nondistended, normoactive bowel sounds. No guarding or rebound tenderness. Colostomy in place. MUSCULOSKELETAL: No edema, No cyanosis. No clubbing. Normal ROM. Intact peripheral pulses. NEUROLOGICAL: CN 2-12 grossly intact. No FND Dictation was produced using [employer] dictation software. please excuse any grammatical, word or spelling errors. Objective - Vital Signs Vital signs: Vital Signs Temp 97.7 F 11/17/24 07:11 Pulse 77 11/17/24 07:11 Resp 16 11/17/24 07:11 BP 114/74 11/17/24 07:11 Pulse Ox 93 L 11/17/24 07:11 FiO2 Intake & Output 11/16/24 11/17/24 11/17/24 18:59 06:59 18:59 Intake Total 480 Output Total 1999 1699 Balance -1999 -1219 Intake: Oral 480 Output: Urine 2000 1700 Other: Voiding Method Indwelling Catheter Indwelling Catheter - Labs CBC & Chem 7: 11/16/24 03:23 11/16/24 03:23 Labs: Abnormal Lab Results - Last 24 Hours (Table) 11/16/24 11/16/24 Range/Units 16:36 20:16 POC Glucose (mg/dL) 158 H 112 H (70-110) mg/dL Microbiology - Last 24 Hours (Table) 11/14/24 16:55 Blood Culture - Preliminary Blood
[2024-11-17 17:00] LABS: Glucose,Whole Blood 94 mg/dL (70-110)
[2024-11-17 19:43] LABS: Glucose,Whole Blood 131 mg/dL (70-110)
[2024-11-17] MEDS: MAG HYDROX/AL HYDROX/SIMETH 30 ML CUP PO PRN (21:18)
[2024-11-17 21:45] VITALS: RESP 18
[2024-11-18 06:44] LABS: Glucose,Whole Blood 70 mg/dL (70-110)
[2024-11-18 07:51] VITALS: BP 102/66; PULSE 63; TEMP 97.3
[2024-11-18 11:35] LABS: Glucose,Whole Blood 92 mg/dL (70-110)
--- NOTE | 2024-11-18 12:04 | P.DS ---
Providers Date of admission: 11/17/24 10:14 Expected date of discharge: 11/18/24 Attending physician: Mandeep Carranza MD Consults: 11/14/24 18:10 Consult Physician Urgent Consulting Provider: Geoffrey Anthony Consult Reason/Comments: uti, hx esbl Do you want consulting provider notified?: Yes 11/15/24 16:20 Consult Physician Routine Consulting Provider: Michael Dickens Consult Reason/Comments: rec UTI, chronic goff catheter Do you want consulting provider notified?: Yes Primary care physician: Gama Ventura Hospital Course: Discharge diagnoses: UTI: ESBL E. coli, Klebsiella History of ESBL History of recurrent UTIs Chronic indwelling Goff's catheter Colostomy: History of Guillain-Wall syndrome: History of sacral ulcers: History of renal stone, ureteral stents: Presented with suprapubic pain, has indwelling Goff's catheter in place Recent 11/13 CT abdomen pelvis was negative for stone or hydronephrosis Urine culture from 11/13 growing Klebsiella and ESBL E. coli ID consulted--on ertapenem, placed midline and 7 days course of IV Invanz on discharge. Urology consultfollows Dr. Thompson, urology recommended outpatient follow-up. Paroxysmal atrial fibrillation: Continue Eliquis, metoprolol, flecainide. Hospital course: 49-year-old female with past medical history significant for atrial fibrillation, diabetes mellitus, seizure disorder, history of, with Guillain- Wall, history of sacral ulcers, colostomy, chronic Goff's catheter, history of ESBL. Patient presented from [facility] for suprapubic pain, patient reported history of recurrent UTIs, history of ESBL E. coli in the past. Patient's indwelling Goff's catheter was changed one 1 day prior in the ED, and UA was sent. Patient also reported history of ureteral stones with stent placement. Patient denied any fever, chills, sore throat, productive cough, chest pain, palpitation, vomiting or compression abdominal pain. Patient is afebrile, heart rate 74, respiratory rate 17, blood pressure 116/62, saturating 93% on room air. WBCs 11.06, hemoglobin 13.8, platelet 214. BMP unremarkable. UA on 11/14 was positive. Urine culture from 11/13 growing gram-negative bacilli. Previous urine culture showed Enterococcus in March 2024, Pseudomonas in February 2024. CT abdomen pelvis on 11/13 showed no stones or hydronephrosis. Patient was admitted hospital for further evaluation and management. Vitals and labs were monitored. Urology evaluated the patient, recommended outpatient follow-up with urology. Patient was initially on Zosyn, blood culture remain negative. Urine culture from 11/13 grew Klebsiella and ESBL E. coli. Antibiotic changed to Invanz. Infectious disease was consulted. Recommended to continue Invanz for 7 days, midline was placed. Patient condition vital stable at discharge. Follow-up with PCP in 1 week Follow-up with urology and ID. PHYSICAL EXAMINATION: GENERAL: The patient is A&O x3, NAD HEENT: EOMI, Sclerae anicteric, Moist Mucous membranes Neck: Supple, Non tender, No JVD PULMONARY: Equal breath souds B/L, No wheezing, No crackles. CARDIOVASCULAR: S1, S2 present. No murmurs, rubs, or gallops. ABDOMEN: Soft, nontender, nondistended, normoactive bowel sounds. No guarding or rebound tenderness. Colostomy in place. MUSCULOSKELETAL: No edema, No cyanosis. No clubbing. Normal ROM. Intact peripheral pulses. NEUROLOGICAL: CN 2-12 grossly intact. No FND Dictation was produced using [employer] dictation software. please excuse any grammatical, word or spelling errors. Patient Condition at Discharge: Fair Plan - Discharge Summary Discharge Rx Participant: Yes New Discharge Prescriptions: New Ertapenem [INVanz] 1 gm IVPB Q24H #7 each Continue Oxybutynin Chloride [oxyBUTYnin chloride ER] 15 mg PO DAILY Magnesium Oxide [Mag-Ox] 400 mg PO BID Ondansetron [Zofran] 4 mg PO Q6H PRN PRN Reason: Nausea levETIRAcetam [Keppra] 750 mg PO BID Ascorbic Acid [Vitamin C] 500 mg PO BID Metoprolol Succinate (ER) [Toprol XL] 12.5 mg PO DAILY Ergocalciferol (Vitamin D2) [Drisdol (50,000 Iu)] 1,250 mcg PO WE Phenazopyridine [Pyridium] 100 mg PO ONCE Mylanta Double Strength 10 ml PO Q4H PRN PRN Reason: Gi Upset Gabapentin [Neurontin] 300 mg PO TID Semaglutide [Ozempic] 2 mg SQ ARELLANO Venlafaxine HCl [Effexor XR] 150 mg PO DAILY Apixaban [Eliquis] 5 mg PO BID Baclofen 5 mg PO BID Multivitamins, Thera [Multivitamin (formulary)] 1 tab PO DAILY Acetaminophen Tab [Tylenol] 650 mg PO Q6H PRN PRN Reason: Pain Suvorexant [Belsomra] 15 mg PO HS Famotidine [Pepcid] 20 mg PO DAILY Docusate Sodium [Dok] 100 mg PO DAILY Insulin Lispro [humaLOG Kwikpen] See Protocol SQ ACHS Cholecalciferol [Vitamin D3 (25 Mcg = 1000 Iu)] 25 mcg PO DAILY Flecainide Acetate [Tambocor] 50 mg PO Q12H Ferrous Sulfate [Iron (65 MG Elemental)] 325 mg PO BID Cranberry Fruit [Cranberry] 465 mg PO BID Folic Acid 1 mg PO DAILY HYDROcodone/APAP 10-325MG [Newton 10-325] 1 tab PO Q4HR PRN PRN Reason: Pain Insulin Glargine,Hum.rec.anlog [Lantus Solostar Pen] 15 units SQ HS Discharge Medication List Acetaminophen Tab [Tylenol] 650 mg PO Q6H PRN 06/18/22 [History] Apixaban [Eliquis] 5 mg PO BID 06/18/22 [History] Baclofen 5 mg PO BID 06/18/22 [History] Multivitamins, Thera [Multivitamin (formulary)] 1 tab PO DAILY 06/18/22 [History] Oxybutynin Chloride [oxyBUTYnin chloride ER] 15 mg PO DAILY 06/18/22 [History] Cholecalciferol [Vitamin D3 (25 Mcg = 1000 Iu)] 25 mcg PO DAILY 11/19/23 [History] Docusate Sodium [Dok] 100 mg PO DAILY 11/19/23 [History] Famotidine [Pepcid] 20 mg PO DAILY 11/19/23 [History] Insulin Lispro [humaLOG Kwikpen] See Protocol SQ ACHS 11/19/23 [History] Magnesium Oxide [Mag-Ox] 400 mg PO BID 11/19/23 [History] Suvorexant [Belsomra] 15 mg PO HS 11/19/23 [History] Ondansetron [Zofran] 4 mg PO Q6H PRN 03/13/24 [History] levETIRAcetam [Keppra] 750 mg PO BID 03/13/24 [History] Ascorbic Acid [Vitamin C] 500 mg PO BID 04/01/24 [History] Cranberry Fruit [Cranberry] 465 mg PO BID 04/01/24 [History] Ergocalciferol (Vitamin D2) [Drisdol (50,000 Iu)] 1,250 mcg PO WE 04/01/24 [History] Ferrous Sulfate [Iron (65 MG Elemental)] 325 mg PO BID 04/01/24 [History] Flecainide Acetate [Tambocor] 50 mg PO Q12H 04/01/24 [History] Folic Acid 1 mg PO DAILY 04/01/24 [History] Metoprolol Succinate (ER) [Toprol XL] 12.5 mg PO DAILY 04/01/24 [History] Gabapentin [Neurontin] 300 mg PO TID 11/14/24 [History] HYDROcodone/APAP 10-325MG [Newton 10-325] 1 tab PO Q4HR PRN 11/14/24 [History] Insulin Glargine,Hum.rec.anlog [Lantus Solostar Pen] 15 units SQ HS 11/14/24 [History] Mylanta Double Strength 10 ml PO Q4H PRN 11/14/24 [History] Phenazopyridine [Pyridium] 100 mg PO ONCE 11/14/24 [History] Semaglutide [Ozempic] 2 mg SQ ARELLANO 11/14/24 [History] Venlafaxine HCl [Effexor XR] 150 mg PO DAILY 11/14/24 [History] Ertapenem [INVanz] 1 gm IVPB Q24H #7 each 11/17/24 [Rx] Follow up Appointment(s)/Referral(s): Gama Ventura MD [Primary Care Provider] - 1-2 days [facility], [NON-STAFF] - As Needed Discharge Disposition: TRANSFER TO SNF/ECF
--- NOTE | 2024-11-18 15:06 | P.PN ---
Subjective Progress Note Date: 11/18/24 Principal diagnosis: Reason for follow-up is urinary tract infection Patient is a 49-year-old female with a past medical history significant for diabetes mellitus reflux seizure disorder atrial fibrillation presenting to the hospital for evaluation of suprapubic pain and this patient did have history of urine retention requiring chronic indwelling Calderon catheter did have a positive UA along with urinary symptoms, concerning for symptomatic aortic infection On today's evaluation that is 11/18/2024, the patient continues to be afebrile, the patient is on room air and breathing comfortably, the Pt denies having any chest pain or cough, the patient still complain of some lower abdominal pain but better no vomiting or any diarrhea has been reported by the nursing staff No new lab has been obtained today Objective - Vital Signs Vital signs: Vital Signs Temp 97.3 F L 11/18/24 07:51 Pulse 63 11/18/24 07:51 Resp 18 11/18/24 07:51 BP 102/66 11/18/24 07:51 Pulse Ox 91 L 11/18/24 07:51 FiO2 Intake & Output 11/17/24 11/18/24 11/18/24 18:59 06:59 18:59 Intake Total 2000 480 Output Total 1200 2350 Balance 800 -1870 Intake: Oral 1999 480 Output: Urine 1200 2350 Other: Voiding Method Indwelling Catheter Indwelling Catheter - Exam GENERAL DESCRIPTION: Middle-age female lying in bed in no distress RESPIRATORY SYSTEM: Unlabored breathing , decreased breath sounds at bases HEART: S1 S2 regular rate and rhythm , ABDOMEN: Soft , no tenderness EXTREMITIES: No edema feet - Labs CBC & Chem 7: 11/16/24 03:23 11/16/24 03:23 Labs: Abnormal Lab Results - Last 24 Hours (Table) 11/17/24 Range/Units 19:42 POC Glucose (mg/dL) 131 H (70-110) mg/dL Microbiology - Last 24 Hours (Table) 11/14/24 16:55 Blood Culture - Preliminary Blood 11/16/24 16:55 Urine Culture - Final Urine,Voided Assessment and Plan (1) UTI (urinary tract infection) Current Visit: Yes Status: Acute Code(s): N39.0 - URINARY TRACT INFECTION, SITE NOT SPECIFIED SNOMED Code(s): 75682788 (2) UTI due to extended-spectrum beta lactamase (ESBL) producing Escherichia coli Current Visit: Yes Status: Acute Code(s): N39.0 - URINARY TRACT INFECTION, SITE NOT SPECIFIED; B96.29 - OTH ESCHERICHIA COLI THE CAUSE OF DISEASES CLASSD ELSWHR; Z16.12 - EXTENDED SPECTRUM BETA LACTAMASE (ESBL) RESISTANCE SNOMED Code(s): 271851695 Plan: 1patient presented to hospital with burning of urine suprapubic discomfort and this patient did have a chronic draining Calderon catheter that apparently was changed day before presentation to the hospital and subsequently removed concerning for symptomatic UTI likely from enteric gram-negative pathogen with a last urine culture positive for ESBL E. coli and Klebsiella 2patient to continue with IV antibiotics for 7 days on discharge question concern answered Dictation was produced using [employer] dictation software. please excuse any grammatical, word or spelling errors. Time with Patient: Less than 30
== END 2024-11-18 15:44 | DRG 690 ==
LOC: EC 13:49 → 4SSUR 18:12 → OBSVTOIN 11-17 10:14
PROVIDERS: ADMIT Internal Medicine; ATTEND Internal Medicine
DX: N39.0 Urinary tract infection, site not specified (principal); Z16.12 Extended spectrum beta lactamase (ESBL) resistance; B96.20 Unspecified Escherichia coli [E. coli] as the cause of diseases classified elsewhere; I48.0 Paroxysmal atrial fibrillation; E11.9 Type 2 diabetes mellitus without complications
CPT/HCPCS: 36410; 36415; 74176; 76770; 76937; 80048; 80053; 81001; 83036; 83690; 85025; 87040; 87086; 96365; 96366; 99285